=== PATIENT | male | born 1965 | race Hispanic/Latino ===

== ENCOUNTER 2018-05-17 19:39 | Inpatient (IN) | payer BC, MEDICARE ==
--- NOTE | 2018-05-17 20:39 | ED PDOC ---
Arrival/HPI - General Chief Complaint: Alcohol Ingestion Time Seen by Provider: 05/17/18 19:41 Historian: EMS - History of Present Illness Narrative History of Present Illness (Text): 05/17/18 20:38 A 53 year old male with past medical history of schizoaffective disorder and alcohol abuse presents to the emergency department for evaluation for a fall at home. Full history is unobtainable as the patient is incoherent and is alone in the emergency department . Patient is known to the emergency department to have a hx of alcohol dependence, currently is reported to live at home with brother. Patient is awake and alert, follow commands appropriately, he cannot provide any detailed history as his speech is incoherent, patient is noted to be moderately tremulous, no physical evidence of trauma on body. Past Medical History - Provider Review Nursing Documentation Reviewed: Yes - Infectious Disease Hx of Infectious Diseases: None - Cardiac Hx Cardiac Arrhythmia: No Hx Congestive Heart Failure: No Hx Hypertension: Yes Hx Mitral Valve Prolapse: No Hx Pacemaker: No Hx Peripheral Edema: No - Pulmonary Hx Asthma: No Hx Bronchitis: No Hx Chronic Obstructive Pulmonary Disease (COPD): No Hx Emphysema: No Hx Pneumonia: No Hx Sleep Apnea: No - Neurological Hx Alzheimer's Disease: No Hx Dementia: No Hx Migraine: No Hx Parkinson's Disease: No Hx Seizures: No Hx Transient Ischemic Attacks (TIA): No - HEENT Hx HEENT Disorder: No Hx Cataracts: No Hx Deafness: No Hx Difficulty Chewing: No Hx Epistaxis: No Hx Glaucoma: No Hx Macular Degeneration: No - Renal Hx Renal Disorder: No Hx Kidney Stones: No - Endocrine/Metabolic Hx Hyperthyroidism: No Hx Hypothyroidism: No - Hematological/Oncological Hx Anemia: No Hx Sickle Cell Disease: No - Integumentary Hx Dermatological Disorder: No Hx Basal Cell Carcinoma: No Hx Eczema: No Hx Melanoma: No Hx Psoriasis: No Hx Squamous Cell Carcinoma: No - Musculoskeletal/Rheumatological Hx Arthritis: No Hx Fractures: No Hx Osteoporosis: No - Gastrointestinal Hx Crohn's Disease: No Hx Diverticulitis: No Hx Gall Bladder Disease: No Hx Gastrointestinal Ulcer: No Hx Pancreatitis: No - Genitourinary/Gynecological Hx Sexually Transmitted Diseases: No - Psychiatric Hx Anxiety: No Hx Bipolar Disorder: Yes Hx Depression: Yes Hx Post Traumatic Stress Disorder: No Hx Schizophrenia: Yes Hx Substance Use: No - Past Surgical History Past Surgical History: No Previous - Surgical History Hx Appendectomy: No Hx Cholecystectomy: No Hx Coronary Stent: No - Anesthesia Hx Anesthesia: No Hx Anesthesia Reactions: No Hx Malignant Hyperthermia: No - Suicidal Assessment Feels Threatened In Home Enviroment: No Family/Social History - Physician Review Nursing Documentation Reviewed: Yes Family/Social History: No Known Family HX Smoking Status: Unknown If Ever Smoked Hx Alcohol Use: No Hx Substance Use: No Hx Substance Use Treatment: No Allergies/Home Meds Allergies/Adverse Reactions: Allergies No Known Allergies Allergy (Verified 05/08/18 13:47) Review of Systems - Review of Systems Systems not reviewed;Unavailable: Altered Mental Status Physical Exam - Physical Exam Narrative Physical Exam (Text): 05/17/18 20:48 Gen: VS reviewed, alert, well developed, well nourished, nontoxic, mild distr ess Eye: EOMI, PERRL Neck: no JVD, supple, no adenopathy CV: regular rate, regular rhythm, no rubs,no murmur, S1, S2 Pulm: no distress, clear to auscultation, no wheeze, no rhonchi, breath sounds equal, no rales Abd: soft, nontender, no guarding, no rebound, no rigidity Ext: no edema, arms are moderately tremulous when extended away from body but tremor absent when held at sides Skin: good color, no rash, no cyanosis Psych: flat affect Neuro: appears confused, unable to fully assess Medical Decision Making ED Course and Treatment: 05/17/18 20:50 patient seen for incoherence, possible alcohol intoxication vs withdrawal. Will get head CT to rule out ICH as there is a hx of reported fall. Will get cxr to rule out aspiration. 05/18/18 01:27 as per old charts reviewed, patient does no have ability to verbally communicate with very limited verbal. patient appears to be at his baseline mental status. 05/18/18 01:30 the multiple phones numbers on file to call home/brother are not functional and do not offer a direct connection. 05/18/18 06:55 patient remained stable and sleeping during ED stay. vitals remained stable. at time of planned discharge, patient is does not appear to have the ability to function at home, i cannot get the patient to get up and ambulate. overall, the patient would have a poor opportunity to function at his current residence. 05/18/18 07:[address] olivo. patient to be admitted for fall, ? syncopal event. consults to dr. segura, dr. beltran, dr. mcallister - RAD Interpretation Narrative RAD Interpretations (Text): 05/17/18 23:51 cxr my read: no focal infiltrate, no ptx, no wide mediastinum CT SCAN OF THE BRAIN WITHOUT IV CONTRAST IMPRESSION: Normal unenhanced CT scan of the brain. Electronically signed on May 18, 2018 12:49:49 AM EST by: Kavon Gregg M.D., Certified by ABR, MSK, Neuroradiology Radiology Orders: 05/17/18 20:29 CHEST PORTABLE [RAD] Stat 05/17/18 20:30 HEAD W/O CONTRAST [CT] Stat - EKG Interpretation EKG Interpretation (Text): 05/18/18 07:34 0729: sinus annie at 56 bpm, nml qrs, nml axis, nonspecific t wave abn - Medication Orders Current Medication Orders: Discontinued Medications Lorazepam (Ativan) 2 mg IVP ONCE ONE; Protocol Stop: 05/17/18 20:31 Disposition/Present on Arrival - Present on Arrival Any Indicators Present on Arrival: No History of DVT/PE: No History of Uncontrolled Diabetes: No Urinary Catheter: No History of Decub. Ulcer: No History Surgical Site Infection Following: None - Disposition Have Diagnosis and Disposition been Completed?: Yes Diagnosis: Schizoaffective disorder, Weakness Disposition: HOSPITALIZED Disposition Time: 07:11 Patient Plan: Admission Patient Problems: Current Active Problems Problem Status Onset Schizoaffective disorder Acute Weakness Acute Condition: STABLE Discharge Instructions (ExitCare): Weakness (ED) Referrals: PCP,NO [Primary Care Provider] - Follow up with primary Forms: Bilib[employer] (Estonian)
[2018-05-17 21:03] LABS: EOS # 0.1 (0.0-0.7); EOS % 1.8 % (1.5-5.0); GRAN # 1.74 (1.4-6.5); GRAN % 51.3 % (50.0-68.0); HEMOGLOBIN 10.8 g/dL (14.0-18.0); LYMPH # 1.1 (1.2-3.4); LYMPH % 32.4 % (22.0-35.0); MEAN CELL VOLUME 96.5 fl (80.0-105.0); MEAN CORPUSCULAR HEMOGLOBIN 31.5 pg (25.0-35.0); MEAN CORPUSCULAR HGB CONC 32.6 g/dl (31.0-37.0); MEAN PLATELET VOLUME 10.6 fl (7.0-11.0); MONO # 0.5 (0.1-0.6); MONO % 14.5 % (1.0-6.0); RBC 3.43 10^6/uL (3.5-6.1); RED CELL DISTRIBUTION WIDTH 13.4 % (11.5-14.5); WHITE BLOOD COUNT 3.4 10^3/uL (4.5-11.0)
[2018-05-17 21:12] LABS: ALBUMIN 3.4 g/dL (3.0-4.8); ALT/SGPT 33 U/L (7-56); AST/SGOT 51 U/L (17-59); BLOOD UREA NITROGEN 25 mg/dL (7-21); CALCIUM 8.9 mg/dL (8.4-10.5); GFR NON-AFRICAN AMERICAN > 60
[2018-05-17] MEDS ORDERED: Magnesium Sulfate 2 gm/50 ml 2 GM/50 ML BAG IVPB ONE (21:29)
[2018-05-18] MEDS ORDERED: Ergocalciferol 50,000 Intl Units Cap PO SCH (09:15)
--- NOTE | 2018-05-18 09:36 | CT ---
Date of service: 05/18/2018 PROCEDURE: CT HEAD WITHOUT CONTRAST. HISTORY: altered mentation COMPARISON: 11/03/2015. TECHNIQUE: Axial computed tomography images were obtained through the head/brain without intravenous contrast. Supplemental Coronal and Sagittal projections created and reviewed. Radiation dose: Total exam DLP = 919.12 mGy-cm. This CT exam was performed using one or more of the following dose reduction techniques: Automated exposure control, adjustment of the mA and/or kV according to patient size, and/or use of iterative reconstruction technique. FINDINGS: HEMORRHAGE: No intracranial hemorrhage. BRAIN: No mass effect or edema. No atrophy or chronic microvascular ischemic changes. VENTRICLES: Unremarkable. No hydrocephalus. CALVARIUM: Unremarkable. PARANASAL SINUSES: Unremarkable as visualized. No significant inflammatory changes. MASTOID AIR CELLS: Unremarkable as visualized. No inflammatory changes. OTHER FINDINGS: None. IMPRESSION: No acute intracranial abnormalities. No significant findings to account for the clinical presentation. No significant interval change compared to the prior examination(s). Concordant results (preliminary interpretation) provided by [employer]. Procedure Completed: 00:18. Preliminary Report: Dictated and Authenticated: 00:49. Final Interpretation: 09:32.
--- NOTE | 2018-05-18 09:50 | RAD ---
Date of service: 05/17/2018 HISTORY: aspiration COMPARISON: 01/25/2016 FINDINGS: LUNGS: No active pulmonary disease. PLEURA: No significant pleural effusion identified, no pneumothorax apparent. CARDIOVASCULAR: No atherosclerotic calcification present No radiographic findings to suggest acute or significant cardiovascular disease. OSSEOUS STRUCTURES: No significant abnormalities. VISUALIZED UPPER ABDOMEN: Normal. OTHER FINDINGS: None. IMPRESSION: No active disease. No significant interval change compared to the prior examination(s).
[2018-05-18] MEDS: Divalproex 500 mg DR(BID formulation) PO SCH ×2 (10:44→21:37)
[2018-05-18] MEDS: Levothyroxine 125 MCG TAB PO SCH (10:44)
[2018-05-18 14:32] VITALS: BMI 35.9
[2018-05-18] MEDS ORDERED: Pneumococcal 23-Valent Vaccine IM ONE (14:32)
[2018-05-18] MEDS ORDERED: Influenza Vaccine 60 mcg/0.5 mL SYR (4YR UP) IM ONE (14:32)
--- NOTE | 2018-05-18 20:12 | CON ---
DATE: 05/18/2018 LOCATION: The patient is in emergency room, bed 600-01. REASON FOR CONSULTATION: Altered mental status. HISTORY OF PRESENT ILLNESS: This is a 53-year-old male with known case of hypertension; hypothyroidism; high cholesterol; psychiatric problems, bipolar, depression, schizophrenia; admitted from emergency room with altered mental status and also the patient fell at home. This patient does not give proper history. He is and does not answer questions properly. The patient has history of alcohol dependence. There is no history of chest pain, palpitation, or shortness of breath associated with this fall. PAST MEDICAL HISTORY: Positive for schizophrenia, bipolar, depression, hypertension, hypothyroidism, and high cholesterol. PERSONAL HISTORY: The patient has history of alcohol dependence. Smoking history not available. ALLERGIES: NO KNOWN ALLERGIES. HOME MEDICATIONS: Included Cozaar 100 mg daily, levothyroxine 125 mcg daily, Ativan 2 mg at bedtime, Ativan 1 mg b.i.d., Haldol 10 mg p.o. a.m. and at bedtime, Risperdal 4 mg p.o. a.m. and at bedtime, Depakote 1000 mg p.o. a.m. and at bedtime, Cogentin 2 mg b.i.d., Lipitor 20 daily, atenolol 12.5 daily, and aspirin 81 daily. REVIEW OF SYSTEMS: All the systems reviewed, positive as mentioned in the history, otherwise negative. PHYSICAL EXAMINATION VITAL SIGNS: Blood pressure 135/89, respirations 18, pulse 70, and temperature 98.2. HEENT: Head is normocephalic. Eyes, pupils normal. Conjunctivae slightly pale. NECK: JVP low. Carotid equal. THORAX: AP diameter normal. LUNGS: Clear. CARDIOVASCULAR: S1 and S2. ABDOMEN: Soft. No tenderness. No organomegaly. Bowel sounds normal. EXTREMITIES: No clubbing, no cyanosis. NEUROLOGICAL: The patient is awake and alert, but does not answer questions. LABORATORY DATA: WBC 3.4, hemoglobin 10.8, hematocrit 33.1, platelets 93. Sodium 141, potassium 4.1, BUN 25, creatinine 1.0. Magnesium 1.1. Random glucose 106. AST and ALT normal. Total protein and albumin normal. Chest x-ray, no active disease. No significant change compared to previous x-ray. EKG showed regular sinus rhythm, nonspecific ST-T changes. DIAGNOSES: Altered mental status. CAT scan of the head, no acute intracranial abnormality. No change from prior CT scan. IMPRESSION AND PLAN: History of hypertension, hypothyroidism, high cholesterol, bipolar, depression, schizophrenia, altered mental status, and low magnesium. Plan is to give IV mag sulfate and we will give losartan 100 mg daily, aspirin 81 mg daily, atorvastatin 20 daily. The patient already has been ordered 2 g magnesium sulfate IV, levothyroxine 125 mcg daily, atenolol 12.5 mg daily, Ativan 1 mg b.i.d., Ativan 2 mg p.o. at bedtime, Cogentin 2 mg b.i.d., Depakote 1000 mg p.o. a.m. and at bedtime. We will repeat lipid profile and TSH and SMA-7 in the morning. We will do an echocardiogram and we will monitor with you and follow with you. Joe Duarte MD
--- NOTE | 2018-05-18 20:38 | CARD ---
APPROVED REPORT Date of service: 05/18/2018 EKG Measurement Heart [id number] <Conclusion> Sinus bradycardia Otherwise normal ECG
--- NOTE | 2018-05-19 04:02 | HP ---
DATE OF EXAM: 05/18/2018 HISTORY OF PRESENT ILLNESS: The patient is a 53-year-old male, who came into the emergency room because of change in mental status. The patient also had a history of alcohol use. He lives with group, had home group therapy, has brought in because of change in mental status and fall. In the emergency room, the patient was seen and evaluated and does not seem to have any broken bones and does not seem to be in any respiratory distress. The patient does have a history of schizoaffective disorders, his baseline mental status is unclear. The patient is not a historian. He is not responding or talking meaningfully and barely opens his eyes. He moves his legs and arms. Does not seem to be in distress. The patient is unclear when did he drink alcohol, but he did drink in the past. There is no clear history of what had happened. PAST MEDICAL HISTORY: As above; schizoaffective disorder, history of alcohol use, hypertension, hypercholesterolemia, hypothyroidism, seizure disorders, and obesity. He is taking a bunch of medications for psych including Ativan and Depakote, and getting aspirin thyroid problem, hypothyroidism. HOME MEDICATIONS: He takes Risperdal 4 mg p.o. in the morning and at night; Cozaar 100; Synthroid 125 mcg; Ativan 2 mg at bedtime and 1 mg b.i.d.; Haldol, I do not know when; Depakote 1000 b.i.d.; Cogentin 2 mg b.i.d.; Lipitor 20 at dinner; Tenormin 12.5 mg p.o. daily; aspirin 81. ALLERGIES: NO KNOWN ALLERGIES. REVIEW OF SYSTEMS: Unobtainable. PHYSICAL EXAMINATION GENERAL: The patient was seen in the emergency room. He was in no distress, no tremors, but not communicative enough. The patient was seen on 05/18/2018. VITAL SIGNS: Temperature 98.2, heart rate 70, blood pressure 135/89, respirations 18, and saturation 99% on room air. HEAD AND NECK: Normal. No JVD. No thyromegaly. CHEST: Clear bilaterally. CARDIAC: First sound and second sound normal. ABDOMEN: Soft, obese, and nontender. EXTREMITIES: No edema. NEUROLOGIC: The patient moves arms and legs, but does not answer questions properly. He just say words, but it does not make sense. LABORATORY DATA: Laboratory-[facility]gers, his white count 3.4, hemoglobin 10.8, hematocrit 33.1, and platelet count is low 93. Chemistry: Sodium 141, potassium 4.1, chloride 104, bicarb 33, BUN 25, and creatinine 1, magnesium is low 1.1. Liver function test is normal. Toxicology, urine alcohol is low. The patient had a CT of the head which was negative. Electrocardiogram, sinus bradycardia. Chest x-ray, no active disease. IMPRESSION AND PLAN: This is a 53-year-old male came in with possible fall, he does have a history of schizoaffective disorder, alcohol use, hypercholesterolemia, and hypertension. We will admit the patient for observation. The patient if stable, we will get the Cardiology consult and Urology Consult and will follow up clinically. We will repeat his TSH in the morning. We will repeat laboratory in the morning. We will replace his electrolytes. We will follow up with the life scientist and the other neurologist. ADMITTING DIAGNOSES: 1. Acute change in mental status. 2. History of fall. Julien Alvarado MD
[2018-05-19] MEDS: Levothyroxine 125 MCG TAB PO SCH (06:29)
[2018-05-19 07:38] LABS: HEMOGLOBIN 10.9 g/dL (14.0-18.0); MEAN CORPUSCULAR HEMOGLOBIN 31.8 pg (25.0-35.0); MEAN CORPUSCULAR HGB CONC 33.4 g/dl (31.0-37.0); MEAN PLATELET VOLUME 11.2 fl (7.0-11.0); RBC 3.43 10^6/uL (3.5-6.1); RED CELL DISTRIBUTION WIDTH 12.9 % (11.5-14.5); WHITE BLOOD COUNT 3.1 10^3/uL (4.5-11.0)
[2018-05-19 08:14] LABS: LDL CHOLESTEROL 61 mg/dL (0-129)
[2018-05-19 08:19] LABS: BLOOD UREA NITROGEN 15 mg/dL (7-21); GFR NON-AFRICAN AMERICAN > 60; HDL CHOLESTEROL 32 mg/dL (29-60)
--- NOTE | 2018-05-19 09:33 | CP.PCM.PN ---
Subjective - Date & Time of Evaluation Date of Evaluation: 05/19/18 Time of Evaluation: 06:10 - Subjective Subjective: Awake, restless, took off gown Reason for consultation and follow up: Cardiac evaluation, admitted for altered mental status, history of schizoaffective disorder and alcohol abuse Seen nd examined by me and Dr. Duarte Objective - Vital Signs/Intake and Output Vital Signs (last 24 hours): Temp Pulse Resp BP Pulse Ox 97.7 F 59 L 18 150/89 95 05/19/18 05:47 05/19/18 05:47 05/19/18 05:47 05/19/18 05:47 05/19/18 05:47 Intake and Output: 05/19/18 05/19/18 06:59 18:59 Intake Total 240 Output Total 3 Balance 237 - Medications Medications: Current Medications Aspirin (Ecotrin) 81 mg PO DAILY [facility] Last Admin: 05/18/18 10:44 Dose: 81 mg Atenolol (Tenormin) 12.5 mg PO DAILY [facility] Last Admin: 05/18/18 10:43 Dose: 12.5 mg Atorvastatin Calcium (Lipitor) 20 mg PO HS [facility] Last Admin: 05/18/18 21:37 Dose: 20 mg Benztropine Mesylate (Cogentin) 2 mg PO BID [facility] Last Admin: 05/18/18 17:57 Dose: 2 mg Divalproex Sodium (Depakote Dr(*Bid*)) 1,000 mg PO AMHS [facility] Last Admin: 05/18/18 21:37 Dose: 1,000 mg Enoxaparin Sodium (Lovenox) 40 mg SC DAILY [facility]; Protocol Ergocalciferol (Drisdol 50,000 Intl Units Cap) 1 cap PO Q7D [facility] Last Admin: 05/18/18 10:45 Dose: Not Given Levothyroxine Sodium (Synthroid) 125 mcg PO 0700 [facility] Last Admin: 05/19/18 06:29 Dose: 125 mcg Lorazepam (Ativan) 1 mg PO BID [facility]; Protocol Last Admin: 05/18/18 17:57 Dose: 1 mg Lorazepam (Ativan) 2 mg PO HS [facility]; Protocol Last Admin: 05/18/18 21:37 Dose: 2 mg Losartan Potassium (Cozaar) 100 mg PO DAILY [facility] Last Admin: 05/18/18 10:44 Dose: 100 mg Risperidone (Risperdal Tab) 4 mg PO AMHS [facility]; Protocol Last Admin: 05/18/18 21:38 Dose: 4 mg Thiamine HCl (Vitamin B1 Tab) 100 mg PO DAILY [facility] - Labs Labs: 05/19/18 07:00 05/19/18 07:00 - Constitutional Appears: Non-toxic, No Acute Distress - Head Exam Head Exam: NORMAL INSPECTION, NORMOCEPHALIC - Eye Exam Eye Exam: Normal appearance Pupil Exam: NORMAL ACCOMODATION - ENT Exam ENT Exam: Mucous Membranes Moist - Respiratory Exam Respiratory Exam: Clear to Ausculation Bilateral, NORMAL BREATHING PATTERN - Cardiovascular Exam Cardiovascular Exam: REGULAR RHYTHM, +S1, +S2 - GI/Abdominal Exam GI & Abdominal Exam: Soft, Normal Bowel Sounds - Extremities Exam Extremities Exam: Full ROM, Normal Capillary Refill - Neurological Exam Neurological Exam: Alert, Awake - Psychiatric Exam Psychiatric exam: Agitated - Skin Skin Exam: Dry, Normal Color, Warm Assessment and Plan - Assessment and Plan (Free Text) Assessment: A 53 year old male obese, who was brought to the ER due to altered mental status after falling at home. He lives with his brother. History of schizophrenia, depression,bipolar disorder,hypertension,hypercholesterolemia,hypothyroidism, seizure disorder and alcohol abuse. Takes multiple antipsychotic drugs. Poor historian.Cardiac consult for syncope. EKG normal sinus bradycardia, Chest X ray unremarkable. CT of head negative for bleeding. Echo done on 11/03/13 showed LVEF 45%, mildly impaired systolic dysfunction,mild MR/TR RVSP 17 mmHg. Will order echo. Will order orthostatic vital signs. Rule out orthostatic hypotension. Plan: Will order echo to evaluate LV function Denies chest pain, denies shortness of breath Heart rate stable Blood pressure stable Orthostatic vital signs if able to stand On Aspirin 81 mg daily,Tenormin 12.5 mg daily,Lipitor 20 mg daily, Lovenox 40 mg daily, Synthroid 125 mcg daily,Cozaar 100 mg daily Low magnesium and potassium- replenish Continue current treatment Continue current medications Will follow up Plan and treatment discussed with Dr. Duarte
[2018-05-19] MEDS ORDERED: Magnesium Sulfate 2 gm/50 ml 2 GM/50 ML BAG IVPB ONE (09:53)
[2018-05-19] MEDS ORDERED: Potassium Chloride 20 mEq ER Tab PO STA (09:53)
[2018-05-19] MEDS: Divalproex 500 mg DR(BID formulation) PO SCH ×2 (10:50→21:28)
[2018-05-19] MEDS: Enoxaparin 40 mg Syringe SC SCH (10:51)
--- NOTE | 2018-05-19 11:01 | CON ---
DATE: 05/19/2018 PULMONARY CONSULTATION NOTE REFERRING PHYSICIAN: Julien Alvarado MD REASON FOR CONSULTATION: SUNITA. HISTORY OF PRESENT ILLNESS: This is a 53-year-old male who presented to emergency room due to change in mental status and fall. The patient has a history of alcohol use. The patient has poor historian. He is not responding; although, he is awake. He was able to tell me his name, but did not answer any of my other questions. No acute distress noted. PAST MEDICAL HISTORY: Schizoaffective disorder, history of alcohol use, hypertension, hypercholesterolemia, hypothyroidism, seizure disorders and obesity. ALLERGIES: NO KNOWN ALLERGIES. SOCIAL HISTORY: History of alcohol use, unknown if patient is smoker, unknown if patient has used illicit drugs in the past. REVIEW OF SYSTEMS: Unobtainable. MEDICATIONS: Reviewed. Aspirin 81 mg daily, atenolol 12.5 mg daily, Lipitor 20 mg at bedtime, Cogentin 2 mg twice a day, Depakote 1000 mg in the morning and at bedtime, Lovenox 40 mg daily, ergocalciferol 50,000 units every 7 days, Synthroid 125 mcg daily, Ativan 1 mg twice a day. Ativan 2 mg at bedtime, Cozaar 100 mg daily, Risperdal 4 mg in the morning and at bedtime. PHYSICAL EXAMINATION: VITAL SIGNS: Blood pressure 150/89, pulse 59, temperature 97.7 and oxygen 95%. GENERAL: No acute distress. HEENT: Moist mucous membranes. Crowded airway. NECK: Supple. No JVD. Short and thick. RESPIRATORY: Clear bilaterally. CARDIOVASCULAR: S1 and S2, audible. ABDOMEN: Obese, soft and nontender. No distension. No organomegaly. EXTREMITIES: No bilateral lower extremity edema. NEUROLOGIC: The patient is able to tell me his name, not verbally responsive for any other questions. LABORATORY DATA: Reviewed. WBC 3.1, RBC 3.43, hemoglobin 10.9, hematocrit 32.6 and platelets 84. Sodium 141, potassium 3.5, chloride 104, carbon dioxide 33, anion gap 8, BUN 15, creatinine 0.8, GFR is greater than 60, random glucose 82, calcium 9.0, phosphorous 3.9 and magnesium 1.3. Triglycerides 98, cholesterol 111, LDL cholesterol 61, HDL cholesterol 32. PSA 0.7, TSH 0.05, alcohol quantitative less than 10. Chest x-ray no active pulmonary disease. Electrocardiogram sinus bradycardia. Head CT shows no acute intracranial abnormalities. No significant findings to cancel a clinical presentation. IMPRESSION AND PLAN: Acute change in mental status, fall, schizoaffective disorder, history of alcohol use, hypertension, hypercholesteremia, suspect sleep apnea syndrome, sleep apnea precaution. Head of bed elevated at 45 degrees. We will start the patient on bilevel positive airway pressure 12/8, 30% oxygen at bedtime. We will add thiamine to medications. Monitor labs. This patient was seen and examined with Dr. Pickens. Discussed the assessment and plan as described above. Thank you for this consult. We will follow with you. Omari Gardner APN Joe Pickens MD
[2018-05-19] MEDS: Haloperidol Lactate 2 mg/ml Liquid PO SCH ×2 (14:00→17:24)
--- NOTE | 2018-05-19 14:00 | CON ---
DATE: 05/19/2017 HISTORY OF PRESENT ILLNESS: The patient is a 53-year-old white male with a long history of psychiatric illness, specifically treatment-resistant schizophrenia versus schizoaffective disorder, prior Clozaril trial, multiple psychiatric admissions in the past, most recently at this facility from 01/26/2016 to 02/07/2016, however, has been discharged from [facility] for involuntary commitment in the past, who presently lives in the [place] [facility], who was brought in to the ER due to change in mental status, specifically increased confusion and not responding appropriately. I reviewed recent notes, including ER notes and nursing notes as well as prior admissions and met with the patient at bedside. The patient is unable to participate in any functional manner or productive manner in the interview. He has no idea where he is. He does not know current month or year. Cannot respond to simple requests or if he does respond, he falls back asleep or he loses focus. In summary, incoherent and unpredictable according to nursing notes. The patient has required much redirection and has been disruptive after he was admitted to the medical floor for further workup. It is unclear his level of compliance of his psychiatric medications; however, he does have a history of being compliant with his psychiatric medications and suddenly decompensating without any precipitant, which is what occurred during his 2016 admission. At this time, the patient remains unpredictable and should be monitored in inpatient setting for safety of himself and others. PSYCHIATRIC HISTORY: As noted above. The patient has a history of schizoaffective disorder with multiple admissions including [facility] [place] from 01/26/2016 to 02/07/2016. At that time, treated with a regimen similar to the one that he has been given here on the medical floor, including Cogentin 2 mg b.i.d., Depakote 1000 mg in a.m. and at night, Ativan 1 mg b.i.d. and 2 mg at night, Risperdal 4 mg in a.m. and at night; however, the patient was also being treated with Haldol, which does not appear to be on his MAR. The patient when he decompensates, he is loud, , he is bizarre, he is disorganized, unpredictable and cannot care for himself. The patient also has a history of threatening individuals for no reason. The patient has also been treated with Clozaril in the past, but is unclear why this was discontinued and has required treatment with 2 different antipsychotics to sustain stability. The patient has in the past, unclear who his current psychiatric provider is at this time. SOCIAL HISTORY: This provider received collateral information indicating that the patient is living at the [facility] and not actually with his brother, which is indicated on few admissions as during this hospitalization. Residential facility number is [phone]. Donald is the individual that was spoken with last time regarding collaterals. Relevant psychiatric medications as noted include Cogentin 2 mg b.i.d., Depakote 1000 mg in a.m. and at night, Ativan 1 mg b.i.d. and 2 mg at night, Risperdal 4 mg in am and at night. IMPRESSION: Schizoaffective disorder, unclear precipitant, rule out secondary to noncompliance, rule out medical issue including delirium. RECOMMENDATIONS: We will continue his psychiatric medications as described; however, we will also add Haldol as the patient has historically required 2 antipsychotics to achieve stability. Psychiatry will continue to follow up with the patient on the medical floor and provided that he is medically cleared, my strong recommendation is that he is transferred to the psychiatric floor. The patient requires capacity to sign in and it is unclear what his current baseline is. He has not been seen in this facility in over 2 years and it is unclear whether the patient has the capacity to sign for admission at his baseline. Regardless, we will continue to make an attempt to determine whether the patient has a power of banking attorney or legal guardian who could sign for him and have social work involved in this respect, as the patient would definitely benefit from further psychiatric management if he should be medically cleared soon. Tom Hill MD
[2018-05-19] MEDS ORDERED: Enoxaparin 40 mg Syringe SC SCH (14:45)
--- NOTE | 2018-05-19 17:21 | PN ---
DATE: 05/19/2018 LOCATION: The patient is in room 260, bed 1. Detailed progress note has been already written by Debbie Condon. This is additional note. The patient was admitted with altered mental status, history of schizophrenia, depression, bipolar disorder, hypertension, hypercholesteremia, hypothyroidism, seizure disorder, alcohol abuse. The patient is a very poor historian and does not give much history. At times, the patient looks confused. The patient had echo on 11/04/2015 which showed ejection fraction of 45%. Mildly impaired systolic function of LV, mild mitral regurgitation, mild tricuspid regurgitation. PLAN: We will repeat echocardiogram to evaluate left ventricular function. The patient is on aspirin 81 mg daily, Tenormin 12.5 mg daily, Lipitor 20 mg daily, Lovenox 40 mg subcutaneous daily, Synthroid 125 mcg daily, Cozaar 100 mg daily. The patient's magnesium is 1.3, potassium is 3.5. Magnesium sulfate 2 g intravenously piggyback, 140 mg by mouth potassium given and aspirin 81 mg daily, Losartan 100 mg daily, Ativan 2 mg h.s. and 1 mg twice daily, Haldol 2 mg three times daily, atorvastatin 20 mg daily, Lovenox 40 mg subcutaneous daily, Risperdal 4 mg by mouth in the morning and at bedtime, thiamine 100 mg daily. We will repeat SMA-7, magnesium phosphorus in the morning. Joe Duarte MD
--- NOTE | 2018-05-19 20:51 | CON ---
DATE: 05/19/2018 HISTORY OF PRESENT ILLNESS: This is a 53-year-old male with past medical history of hypertension, hypothyroidism, high cholesterol, bipolar, depression, and schizophrenia, came to the hospital. Also, has history of alcohol dependence. He came to the emergency room following a fall at home and altered mental status. PAST MEDICAL HISTORY: Schizophrenia, depression, hypertension, hypothyroidism, and high cholesterol. ALLERGIES: NO KNOWN DRUG ALLERGY. PHYSICAL EXAMINATION" NEUROLOGIC: The patient is confused, not able to follow simple commands and spontaneous movement of all the extremities noted. Deep tendon reflexes 1+. Both plantars are downgoing. Sensory appears intact. Cerebellar gait deferred. IMAGING DATA: CAT scan was done which was reported negative. No acute abnormality. IMPRESSION AND PLAN: Altered mental status, status post fall, multiple medical problems, hypertension, hypothyroidism, depression, and admitted with altered mental status. The patient is on above medications. Continue present management. We will follow up. CAT scan of the head was done which was negative. Klaus Jorgensen MD
[2018-05-19] MEDS: Sodium Chloride 0.45% 1,000 ML IV SCH (21:34)
--- NOTE | 2018-05-19 21:42 | CON ---
DATE OF CONSULTATION: 05/19/2018 REQUESTING PHYSICIAN: Julien Alvarado MD This consult is for Dr. Tovar, Dr. Bailey covering. REASON FOR CONSULTATION: I have been asked to see this 53-year-old male with multiple psychiatric problems including schizoaffective disorder and bipolar disorder, who comes to the hospital with change in mental status consisting of confusion. The patient apparently fell at home. He has a history of alcohol dependence. He is currently awake and alert, but unable to give any history. He is confused. I have been asked to see this patient for anemia. He denies any rectal bleeding, but is unable to give any other history. PAST MEDICAL HISTORY: Notable for schizoaffective disorder, depression, hypertension, hypothyroidism, hypercholesterolemia. FAMILY HISTORY: Noncontributory. SOCIAL HISTORY: The patient has a history of alcohol dependence. He apparently lives in a penitentiary. MEDICATIONS AT HOME: Cozaar, Haldol, Risperdal, Depakote, Cogentin, Lipitor, Levoxyl, Ativan and baby aspirin. REVIEW OF SYSTEMS: A 14-point review of systems is unobtainable due to his confusion. PHYSICAL EXAMINATION: GENERAL: Middle-aged male lying in bed, awake, alert, confused, disoriented to person, place and time. VITAL SIGNS: Temperature of 97.7, blood pressure of 150/89, heart rate of 59. HEENT: Reveals sclerae to be white. Conjunctivae pale. NECK: Supple. CHEST: Reveal lungs to be clear. HEART: Regular rate and rhythm. ABDOMEN: Flabby, soft, nontender. EXTREMITIES: No edema. LABORATORY DATA: Hemoglobin 10.9, white blood cell count 3.1, platelet count 84,000. Chemistries reveal potassium of 3.5 and magnesium of 1.3. IMPRESSION: This is a 53-year-old male with anemia and actually pancytopenia with low white blood cell count and low platelet count. There is no clinical evidence of GI bleeding. He has pancytopenia. He also has altered mental status with a history of multiple psychiatric problems including schizoaffective disorder and depression. RECOMMENDATIONS: 1. We will check iron studies. 2. Check stool guaiacs. 3. Would obtain a hematology evaluation for pancytopenia. Toni Bailey MD [facility] # [id number]
--- NOTE | 2018-05-20 01:00 | PN ---
DATE: 05/19/2018 SUBJECTIVE: Patient seems confused. He is kind of disoriented. He does not communicate well. He does not give any meaningful speech, and he took off his clothes and tried to get out of the bed. for psychiatrist and neurology specialist. Patient resides in a group facility at [place] and has not been using alcohol, and he does have significant history of schizoaffective disorder. PHYSICAL EXAMINATION: VITAL SIGNS: Temperature 97.7, heart rate 99, blood pressure 150/89, respirations 18, and saturation 95% on room air. HEAD AND NECK: Normal. No JVD. No thyromegaly. CHEST: Clear and bilateral. CARDIAC: First sound and second sound normal. No murmur, rub, or gallop. ABDOMEN: Soft and nontender. EXTREMITIES: No edema. NEUROLOGIC: He moves all extremity, but his mental status is disoriented and confused. His baseline mental status unclear. Patient has no relatives around and has been having a history of schizoaffective disorder. LABORATORY STUDIES: White count 3.1, hemoglobin 10.9, hematocrit 32.6, and platelets 84. Sodium 141, potassium 3.12, chloride 104, bicarbonate 33, BUN 15, creatinine 0.8. Patient noted his magnesium is low, and his cholesterol is low. TSH also 0.05. We will re-evaluate that. IMPRESSION AND PLAN: 1. Change in mental status. Patient is admitted with a fall and also has change in mental status, unclear history. However patient does have a history of schizoaffective disorder, on Clozaril and has been on this medication for a while. Psychiatrist and neurologist will see him and we will continue to follow up with him. 2. Low platelets, thrombocytopenia. We will get Hematology. The patient is on Clozaril; he is not getting it now. We will continue to monitor his conditions. 3. Abnormal thyroid stimulating hormone. We will monitor T3 and T4. I will repeat it again and see how the patient do. 4. Hypertension, hypercholesterolemia. We will continue current medication. He is getting Cozaar 100 mg, and he is getting Tenormin 12.5 mg once a day. 6. Obesity. I called the Pulmonary. We will keep the head 45 degree level, positive pressure ventilation 04/12 has been recommended. We will follow up with them. Continue gastrointestinal and deep venous thrombosis prophylaxis. Followup clinically. Maintain aspirin 81 mg daily and thiamine 100 mg p.o. daily. Continue current therapy. Julien Alvarado MD
[2018-05-20 06:56] LABS: BLOOD UREA NITROGEN 14 mg/dL (7-21); CALCIUM 9.1 mg/dL (8.4-10.5); GFR NON-AFRICAN AMERICAN > 60
[2018-05-20 06:57] LABS: IRON 99 ug/dL (45-180)
[2018-05-20] MEDS: Levothyroxine 125 MCG TAB PO SCH (07:01)
[2018-05-20 07:06] LABS: % IRON SATURATION 34 % (20-55); TOTAL IRON BINDING CAPACITY 294 ug/dL (261-462)
[2018-05-20] MEDS: Sodium Chloride 0.45% 1,000 ML IV SCH ×2 (07:58→17:04)
--- NOTE | 2018-05-20 08:42 | CP.PCM.PCO ---
Addendum Addendum: I visited patient at bedside, he is not responsive to multiple attempts to engage him in an interview. He is sleeping deeply. Behavior has been in better control in the past 24 hours however he has been sedated. This provider will hold off on any further psychiatric medication changes due to his sedation (though patient has tolerated current medication regimen in the past at higher doses of haldol @10 mg po TID--He is currently on Haldol 2 mg po TID). Psychiatry will continue to f/u. Next f/u will be 05/21/[address] Sen. Will order VPA level 05/20/18 08:39
[2018-05-20] MEDS: Pantoprazole 40 mg EC Tab PO SCH (09:01)
--- NOTE | 2018-05-20 09:42 | CP.PCM.PN ---
<Toan Murillo - Last Filed: 05/20/18 18:06> Subjective - Date & Time of Evaluation Date of Evaluation: 05/20/18 Time of Evaluation: 09:39 - Subjective Subjective: GI Progress Note for Dr. Tovar Patient seen and examined at bedside. No acute overnight events. Patient somnolent on examination, currently on sedating medications. Further, ROS unobtainable. Objective - Vital Signs/Intake and Output Vital Signs (last 24 hours): Temp Pulse Resp BP Pulse Ox 98 F 88 20 142/81 99 05/20/18 06:00 05/20/18 06:00 05/20/18 06:00 05/20/18 06:00 05/20/18 06:00 Intake and Output: 05/20/18 05/20/18 06:59 18:59 Intake Total 1500 Balance 1500 - Medications Medications: Current Medications Aspirin (Ecotrin) 81 mg PO DAILY [facility] Last Admin: 05/19/18 10:45 Dose: 81 mg Atenolol (Tenormin) 12.5 mg PO DAILY [facility] Last Admin: 05/19/18 10:57 Dose: 12.5 mg Atorvastatin Calcium (Lipitor) 20 mg PO HS [facility] Last Admin: 05/19/18 21:29 Dose: 20 mg Benztropine Mesylate (Cogentin) 2 mg PO BID [facility] Last Admin: 05/19/18 17:25 Dose: 2 mg Divalproex Sodium (Depakote Dr(*Bid*)) 1,000 mg PO AMHS [facility] Last Admin: 05/19/18 21:28 Dose: 1,000 mg Enoxaparin Sodium (Lovenox) 40 mg SC DAILY [facility]; Protocol Last Admin: 05/19/18 10:51 Dose: 40 mg Ergocalciferol (Drisdol 50,000 Intl Units Cap) 1 cap PO Q7D [facility] Last Admin: 05/18/18 10:45 Dose: Not Given Haloperidol Lactate (Haldol) 2 mg PO TID [facility]; Protocol Last Admin: 05/19/18 17:24 Dose: 2 gm Sodium Chloride (Sodium Chloride 0.45%) 1,000 mls @ 100 mls/hr IV .Q10H [facility] Last Admin: 05/20/18 07:58 Dose: 100 mls/hr Levothyroxine Sodium (Synthroid) 125 mcg PO 0700 [facility] Last Admin: 05/20/18 07:01 Dose: Not Given Lorazepam (Ativan) 1 mg PO BID [facility]; Protocol Last Admin: 05/19/18 17:20 Dose: 1 mg Lorazepam (Ativan) 2 mg PO HS [facility]; Protocol Last Admin: 05/19/18 21:29 Dose: 2 mg Losartan Potassium (Cozaar) 100 mg PO DAILY [facility] Last Admin: 05/19/18 10:45 Dose: 100 mg Magnesium Oxide (Mag-Ox) 400 mg PO BID [facility] Pantoprazole Sodium (Protonix Ec Tab) 40 mg PO ACB [facility] Last Admin: 05/20/18 09:01 Dose: Not Given Risperidone (Risperdal Tab) 4 mg PO AMHS [facility]; Protocol Last Admin: 05/19/18 21:30 Dose: 4 mg Thiamine HCl (Vitamin B1 Tab) 100 mg PO DAILY [facility] Last Admin: 05/19/18 10:50 Dose: 100 mg - Labs Labs: 05/19/18 07:00 05/20/18 06:00 - Constitutional Appears: No Acute Distress - Head Exam Head Exam: NORMAL INSPECTION - Eye Exam Eye Exam: Normal appearance - ENT Exam ENT Exam: Mucous Membranes Moist, Normal Exam - Neck Exam Neck Exam: Normal Inspection - Respiratory Exam Respiratory Exam: Clear to Ausculation Bilateral. absent: Rales, Rhonchi, Wheezes - Cardiovascular Exam Cardiovascular Exam: RRR, +S1, +S2. absent: Gallop, Rubs, Murmur - GI/Abdominal Exam GI & Abdominal Exam: Soft. absent: Distended, Guarding, Tenderness, Rebound - Extremities Exam Extremities Exam: Normal Inspection - Back Exam Back Exam: NORMAL INSPECTION - Skin Skin Exam: Normal Color Assessment and Plan - Assessment and Plan (Free Text) Assessment: 53 yo M with PMH of schizoaffective disorder, EtOH abuse, HTN, HLD, hypothyroidism, and seizure presents to [facility] for altered mental status and fall. GI was consulted due to anemia. Patient is pancytopenic, anemia is not likely to be due to GI bleed. Plan: - Iron studies WNL - Retic count normal - B12 level - Peripheral smear - Celiac profile - CT abdomen pelvis - Stool guiaic pending - Hemotology was consulted Patient seen and discussed in detail with Dr. Guy Murillo, DO PGY2 <Mindy Tovar V - Last Filed: 05/20/18 23:59> Objective - Vital Signs/Intake and Output Vital Signs (last 24 hours): Temp Pulse Resp BP Pulse Ox 97.7 F 73 18 161/108 H 99 05/20/18 18:00 05/20/18 18:00 05/20/18 18:00 05/20/18 18:00 05/20/18 06:00 Intake and Output: 05/20/18 05/21/18 18:59 06:59 Intake Total 1200 360 Output Total 400 Balance 1200 -40 - Medications Medications: Current Medications Aspirin (Ecotrin) 81 mg PO DAILY [facility] Last Admin: 05/20/18 11:35 Dose: Not Given Atenolol (Tenormin) 12.5 mg PO DAILY [facility] Last Admin: 05/20/18 15:46 Dose: 12.5 mg Atorvastatin Calcium (Lipitor) 20 mg PO HS [facility] Last Admin: 05/20/18 21:19 Dose: 20 mg Benztropine Mesylate (Cogentin) 2 mg PO BID [facility] Last Admin: 05/20/18 18:09 Dose: 2 mg Divalproex Sodium (Depakote Dr(*Bid*)) 1,000 mg PO AMHS [facility] Last Admin: 05/20/18 21:17 Dose: 1,000 mg Enoxaparin Sodium (Lovenox) 40 mg SC DAILY [facility]; Protocol Last Admin: 05/20/18 11:36 Dose: Not Given Ergocalciferol (Drisdol 50,000 Intl Units Cap) 1 cap PO Q7D [facility] Last Admin: 05/18/18 10:45 Dose: Not Given Haloperidol Lactate (Haldol) 2 mg PO TID [facility]; Protocol Last Admin: 05/20/18 18:09 Dose: Not Given Sodium Chloride (Sodium Chloride 0.45%) 1,000 mls @ 100 mls/hr IV .Q10H [facility] Last Admin: 05/20/18 17:04 Dose: Not Given Levothyroxine Sodium (Synthroid) 125 mcg PO 0700 [facility] Last Admin: 05/20/18 07:01 Dose: Not Given Lorazepam (Ativan) 1 mg PO BID PRN; Protocol PRN Reason: Agitation Losartan Potassium (Cozaar) 100 mg PO DAILY [facility] Last Admin: 05/20/18 15:47 Dose: 100 mg Magnesium Oxide (Mag-Ox) 400 mg PO BID [facility] Last Admin: 05/20/18 18:11 Dose: Not Given Pantoprazole Sodium (Protonix Ec Tab) 40 mg PO ACB [facility] Last Admin: 05/20/18 09:01 Dose: Not Given Risperidone (Risperdal Tab) 4 mg PO AMHS [facility]; Protocol Last Admin: 05/20/18 21:17 Dose: 4 mg Thiamine HCl (Vitamin B1 Tab) 100 mg PO DAILY [facility] Last Admin: 05/20/18 11:37 Dose: Not Given - Labs Labs: 05/20/18 13:04 05/20/18 06:00 Attending/Attestation - Attestation I have personally seen and examined this patient.: Yes I have fully participated in the care of the patient.: Yes I have reviewed all pertinent clinical information, including history, physical exam and plan: Yes Notes (Text): This is an addendum to GI progress report dictated by the GI Fellow. The patient was seen and examined earlier. Medical records, lab studies, imagings were reviewed. Last 24 hours events reviewed. Agreed with the above treatment plan as outlined in GI Fellow 's notes with the addition of the following 05/20/18 23:58
[2018-05-20] MEDS ORDERED: Bisacodyl 5mg EC Tab PO ONE (09:59)
[2018-05-20] MEDS: Divalproex 500 mg DR(BID formulation) PO SCH ×2 (11:15→21:17)
[2018-05-20] MEDS: Enoxaparin 40 mg Syringe SC SCH (11:36)
[2018-05-20] MEDS: Haloperidol Lactate 2 mg/ml Liquid PO SCH ×3 (11:36→18:09)
[2018-05-20] MEDS: Magnesium Oxide 400 mg Tab UD PO SCH ×2 (11:36→18:11)
--- NOTE | 2018-05-20 11:45 | US ---
HISTORY: Leg pain and swelling. Evaluate for DVT PHYSICIAN(S): Puneet Boroks MD. TECHNIQUE: Duplex sonography and color-flow Doppler with graded compression were used to evaluate the deep venous systems of both lower extremities. FINDINGS: The visualized deep venous systems of both lower extremities are sonographically normal and compressible. Normal wave forms and augmentation are seen. There is no sonographic evidence for deep venous thrombosis in the visualized segments of both lower extremities. IMPRESSION: No sonographic evidence for deep venous thrombosis in the visualized segments of both lower extremities.
--- NOTE | 2018-05-20 12:45 | MRI ---
Date of service: 05/20/2018 PROCEDURE: MRI BRAIN WITHOUT CONTRAST HISTORY: AMS COMPARISON: 07/04/2013 MRI TECHNIQUE: Multiplanar, multisequence MR images of the brain were obtained without intravenous contrast enhancement. FINDINGS: HEMORRHAGE: None DWI: No evidence of an acute or early subacute infarction. BRAIN PARENCHYMA: No mass effect or edema. Chronic lacunar infarct in the left thalamus. VENTRICLES: Unremarkable. No hydrocephalus. CRANIUM: Unremarkable. ORBITS: Grossly unremarkable. PARANASAL SINUSES/MASTOIDS: Clear VASCULAR SYSTEM: Skull base flow voids intact. OTHER FINDINGS: None. IMPRESSION: No acute intracranial findings
--- NOTE | 2018-05-20 13:05 | CP.PCM.PCO ---
Physician Communication Note - Physician Communication Note Physician Communication Note: medication adjustment patient is lethargic, PT eval pending
[2018-05-20 13:50] LABS: HEMOGLOBIN 11.5 g/dL (14.0-18.0); MEAN CORPUSCULAR HEMOGLOBIN 31.7 pg (25.0-35.0); MEAN CORPUSCULAR HGB CONC 33.3 g/dl (31.0-37.0); MEAN PLATELET VOLUME 11.4 fl (7.0-11.0); PLATELET COUNT 100 10^3/uL (120.0-450.0); RBC 3.63 10^6/uL (3.5-6.1); RED CELL DISTRIBUTION WIDTH 13.3 % (11.5-14.5)
--- NOTE | 2018-05-20 14:22 | PN ---
DATE: 05/20/2018 REASON FOR THE CONSULTATION AND FOLLOWUP: Cardiac evaluation admitted with altered mental status, rule out syncope. The patient denies any chest pain shortness of breath, any palpitation, OBJECTIVE : not in apparent distress. PHYSICAL EXAMINATION: VITAL SIGNS: Temperature is afebrile, heart rate 72, blood pressure 146/106. HEENT: PERRLA intact. NECK: Supple. No carotid bruit or thyromegaly. CHEST: Clear to auscultation. HEART: S1 and S2 regular. ABDOMEN: Soft. EXTREMITIES: Clubbing, cyanosis negative. LABORATORY DATA: WBC 3.1, hemoglobin 10.9, hematocrit 32.6, platelet count 84. Chemistry shows sodium 141, potassium 3.9, chloride 104, CO2 of 32, anion gap of 10, BUN 40, creatinine 0.7, Magnesium 1.5. IMPRESSION: A 53-year-old male with past medical history hypertension, hypothyroidism, hyperlipidemia, bipolar disorder, depression, schizophrenia, altered mental status, and hypomagnesemia. Admitted with altered mental status, rule out syncope, so far no evidence of acute myocardial infarction. RECOMMENDATION: Aggressive supplemental potassium. Continue anti-seizure medication. We will orthostatic hypotension, for the recommendation. Hospital course will follow with you. Thank you Dr. Medel for providing us the opportunity in taking care of the patient, Yoel Subramanian. Joe Amaral MD MTDKemal
--- NOTE | 2018-05-20 14:35 | PN ---
DATE: 05/20/2018 PULMONARY PROGRESS NOTE REFERRING PHYSICIAN: Julien Alvarado MD SUBJECTIVE: The patient is lying in bed, asleep, arousable, mumbling. Speech is incoherent. Nursing staff reports, the patient does not wear a BiPAP machine last night, he kept pulling it off. No hemoptysis, hematosis, hematuria, diarrhea, or leg swelling reported. OBJECTIVE: GENERAL: No acute distress. VITAL SIGNS: Blood pressure 142/81, pulse 88, temperature 98, oxygen saturation 99% on room air. HEENT: Moist mucous membranes. NECK: Supple. No JVD. RESPIRATORY: Clear bilaterally. CARDIOVASCULAR: S1, S2 audible. ABDOMEN: Soft, nontender. No distension. EXTREMITIES: No bilateral lower extremity edema. NEUROLOGIC: Asleep, arousable. When verbal, the patient mumbles. MEDICATIONS: Reviewed. Aspirin 81 mg daily, atenolol 12.5 mg daily, Lipitor 20 mg at bedtime, Cogentin 2 mg twice a day, Depakote 1000 mg twice a day, Lovenox 40 mg daily, ergocalciferol 50,000 units every 7 days, Haldol 2 mg three times a day, Synthroid 125 mcg daily, Ativan 1 mg twice a day, Ativan 2 mg at bedtime, Cozaar 100 mg daily, magnesium oxide 400 mg twice a day, Protonix 40 mg in the morning, Risperdal 4 mg twice a day, sodium chloride 0.45% 1000 mL/100 mL/hour, vitamin B1 100 mg daily. LABORATORY DATA: Reviewed. Manual platelet count 123. Sodium 141 potassium 3.9, chloride 104, carbon dioxide 32, anion gap 10, BUN 14, creatinine 0.7, GFR greater than 60, random glucose 77, calcium 9.1, phosphorus 3.6, magnesium 1.5, iron 99, TIBC 294, percent saturation 34, valproic acid 75. Venous duplex bilateral lower extremities show negative. Brain MRI, no acute intracranial findings. Echocardiogram, pending report. IMPRESSION AND PLAN: Acute change in mental status, schizoaffective disorder, fall, history of alcohol use, hypertension, hypercholesterolemia, suspected sleep apnea syndrome. Continue to encourage BiPAP use at bedtime. Discussed with nursing staff that BiPAP can be placed during the day if the patient is asleep or lethargic. Head of bed elevated at 45 degrees, sleep apnea precaution. We will order ABGs to be done today. We will discontinue Ativan at bedtime and change Ativan 1 mg twice a day to Ativan 1 mg twice a day as needed. Continue Psychiatry followup. The patient was seen and examined with Dr. Pickens. Discussed assessment and plan as described above. Thank you for this consult. We will follow with you. Omari Gardner APN Joe Pickens MD
--- NOTE | 2018-05-20 14:42 | CARD ---
APPROVED REPORT Date of service: 05/20/2018 EXAM: Two-dimensional and M-mode echocardiogram with Doppler and color Doppler. 2D DIMENSIONS Left Atrium (2D)3.7 (1.6-4.0cm)IVSd1.6 (0.7-1.1cm) LVDd3.5 (3.9-5.9cm)PWd1.1 (0.7-1.1cm) LVDs2.4 (2.5-4.0cm)FS (%) 30.1 % LVEF (%)58.4 (>50%) M-Mode DIMENSIONS Aortic Root2.80 (2.2-3.7cm)Aortic Cusp Exc.2.20 (1.5-2.0cm) Aortic Valve AoV Peak Dnqypywk372.0cm/Neil Peak GR.5mmHg Mitral Valve MV E Uxjslcms47.9cm/sMV A Lhhwtvpt27.3cm/sE/A ratio0.8 TDI E/Lateral E'0.0E/Medial E'0.0 LEFT VENTRICLE The left ventricle is normal size. There is borderline concentric left ventricular hypertrophy. Proximal septal thickening is noted. The left ventricular function is normal.EF-55-60% There is normal LV segmental wall motion. Transmitral Doppler flow pattern is Grade III-reversible restrictive diastolic dysfunction. No left ventricle thrombus noted on this study. There is no ventricular septal defect visualized. There is no left ventricular aneurysm. There is no mass noted in the left ventricle. RIGHT VENTRICLE The right ventricle is normal size. There is normal right ventricular wall thickness. The right ventricular systolic function is normal. ATRIA The left atrium size is normal. The right atrium size is normal. The interatrial septum is intact with no evidence for an atrial septal defect. AORTIC VALVE The aortic valve is thickened but opens well. There is trace aortic regurgitation. There is no aortic valvular stenosis. There is no aortic valvular vegetation. MITRAL VALVE The mitral valve is thickened but opens well. Mitral regurgitation is trace. There is no mitral valve stenosis. There is no evidence of mitral valve prolapse. TRICUSPID VALVE The tricuspid valve leaflets are thickened , but open well. There is trace tricuspid regurgitation. There is no tricuspid valve stenosis. There is no tricuspid valve prolapse or vegetation. PULMONIC VALVE The pulmonary valve is normal in structure. There is trace pulmonic valvular regurgitation. There is no pulmonic valvular stenosis. GREAT VESSELS The aortic root is normal in size. The ascending aorta is normal in size. The pulmonary artery is normal. The IVC is normal in size and collapses >50% with inspiration. PERICARDIAL EFFUSION There is no pleural effusion. There is no pericardial effusion. <Conclusion> Normal chamber Size.EF-55-60%. Trace MR/TR/AR/PI. The IVC is normal in size and collapses >50% with inspiration. There is no pericardial effusion.
--- NOTE | 2018-05-20 14:56 | CT ---
Date of service: 05/20/2018 PROCEDURE: CT Abdomen and Pelvis without intravenous contrast HISTORY: pancytopenia r/o malig COMPARISON: None. TECHNIQUE: Technique. Contrast dose: Radiation dose: Total exam DLP = 1541.02 mGy-cm. This CT exam was performed using one or more of the following dose reduction techniques: Automated exposure control, adjustment of the mA and/or kV according to patient size, and/or use of iterative reconstruction technique. FINDINGS: LOWER THORAX: Unremarkable. LIVER: Unremarkable. No gross lesion or ductal dilatation. GALLBLADDER AND BILE DUCTS: Unremarkable. PANCREAS: Unremarkable. No gross lesion or ductal dilatation. SPLEEN: Unremarkable. ADRENALS: Unremarkable. No mass. KIDNEYS AND URETERS: Unremarkable. No hydronephrosis. No solid mass. VASCULATURE: Unremarkable. No aortic aneurysm. No aortic atherosclerotic calcification or mural plaque present. BOWEL: Moderate to severe constipation APPENDIX: Unremarkable. Normal appendix. PERITONEUM: Unremarkable. No free fluid. No free air. LYMPH NODES: Unremarkable. No enlarged lymph nodes. BLADDER: Unremarkable. REPRODUCTIVE: Unremarkable. BONES: No acute fracture. OTHER FINDINGS: None. IMPRESSION: No acute intra-abdominal findings
[2018-05-20] MEDS ORDERED: Magnesium Sulfate 2 gm/50 ml 2 GM/50 ML BAG IVPB ONE ×2 (15:26→15:47)
[2018-05-20 15:45] LABS: URINE BILIRUBIN NEGATIVE (NEGATIVE); URINE BLOOD TRACE-INTACT (NEGATIVE); URINE GLUCOSE (UA) NEGATIVE (NEGATIVE); URINE LEUKOCYTE ESTERASE NEGATIVE Leu/uL (NEGATIVE); URINE PROTEIN NEGATIVE mg/dL (<30 mg/dL)
[2018-05-20 15:58] LABS: URINE APPEARANCE CLOUDY (CLEAR); URINE COLOR YELLOW (YELLOW)
[2018-05-20 15:59] LABS: URINE BACTERIA FEW /hpf; URINE WBC 0 - 2 /hpf (0-6)
--- NOTE | 2018-05-20 16:08 | CP.PCM.CON ---
History of Present Illness - History of Present Illness History of Present Illness: PGY-2 heme/onc consult note for Dr Loyd Brand Mr Subramanian is a 53 year old male with a PMHx of schizoaffective disorder, alcohol use disorder, HTN, HLD, hypothyroidism, seizure disorder, obesity, who presented to the ED for change in mental status. He was in group therapy at [facility], where he lives, and was noted to acting confused and also had a fall thus he was brought in. Today patient was arousable, mumbling with incoherent speech - collecting a history from him was not possible. BIPAP machine at bedside but per nursing patient is not using at nighttime. PMHx: schizoaffective disorder, alcohol use disorder, HTN, HLD, hypothyroidism, seizure disorder, obesity PSHx: denies Home meds: risperdal 4mg po bid, cozaar 100mg po qd, synthroid 125mcg qd, ativan 2mg po hs, haldol, depakote 1000mg po bid, cogentin 2mg po bid, lipitor 20mg po hs, tenormin 12.5mg po qd, asa 81mg po qd Review of Systems - Review of Systems Systems not reviewed;Unavailable: Uncooperative Past Patient History - Infectious Disease Hx of Infectious Diseases: None - Past Social History Smoking Status: Unknown If Ever Smoked - CARDIAC Hx Cardiac Disorders: Yes Hx Hypertension: Yes Other/Comment: incoherant unable to answer info from past records - PULMONARY Hx Respiratory Disorders: No Other/Comment: incoherant unable to answer info from past records - NEUROLOGICAL Other/Comment: incoherant unable to answer info from past records - HEENT Hx HEENT Problems: No Hx Cataracts: No Hx Deafness: No Hx Difficulty Chewing: No Hx Epistaxis: No Hx Glaucoma: No Hx Macular Degeneration: No Other/Comment: pt incoherant unable to answer info from past records - RENAL Other/Comment: pt incoherant unable to answer info from past records - ENDOCRINE/METABOLIC Hx Hypothyroidism: Yes Other/Comment: pt incoherant unable to answer info from past records - HEMATOLOGICAL/ONCOLOGICAL Hx Blood Disorders: (vitamin d deficiency) Other/Comment: pt incoherant unable to answer info from past records - INTEGUMENTARY Hx Dermatological Problems: Yes Other/Comment: dark brown birthmark lle, left knee abrasion, long thick toenails some dark brown in color both feet - MUSCULOSKELETAL/RHEUMATOLOGICAL Hx Falls: Yes (fell today at home) Other/Comment: pt incoherant unable to answer, info from past records - GASTROINTESTINAL Hx Gastrointestinal Disorders: (obese) Other/Comment: pt incoherant unable to answer info from past records - GENITOURINARY/GYNECOLOGICAL Other/Comment: pt incoherant unable to answer info from past records - PSYCHIATRIC Hx Psychophysiologic Disorder: Yes (schizoaffective disorder) Hx Anxiety: No Hx Bipolar Disorder: Yes Hx Depression: Yes Hx Post Traumatic Stress Disorder: No Hx Schizophrenia: Yes Hx Substance Use: (unknown, answers incoherantly) Other/Comment: alcohol abuse, poor concentration, delusions, flight of ideas, poor hygeine, disorganized thought process, echolalia, 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, past job loss and financial problems, info from psych eval from 02/2016 - SURGICAL HISTORY Other/Comment: pt incoherant unable to answer info from past records - ANESTHESIA Hx Anesthesia: No Hx Anesthesia Reactions: No Hx Malignant Hyperthermia: No Meds Allergies/Adverse Reactions: Allergies Allergy/AdvReac Type Severity Reaction Status Date / Time No Known Allergies Allergy Verified 05/08/18 13:47 - Medications Medications: Current Medications Aspirin (Ecotrin) 81 mg PO DAILY [facility] Last Admin: 05/20/18 11:35 Dose: Not Given Atenolol (Tenormin) 12.5 mg PO DAILY [facility] Last Admin: 05/20/18 15:46 Dose: 12.5 mg Atorvastatin Calcium (Lipitor) 20 mg PO HS [facility] Last Admin: 05/19/18 21:29 Dose: 20 mg Benztropine Mesylate (Cogentin) 2 mg PO BID [facility] Last Admin: 05/20/18 11:14 Dose: Not Given Divalproex Sodium (Depakote Dr(*Bid*)) 1,000 mg PO [facility] Last Admin: 05/20/18 11:15 Dose: Not Given Enoxaparin Sodium (Lovenox) 40 mg SC DAILY [facility]; Protocol Last Admin: 05/20/18 11:36 Dose: Not Given Ergocalciferol (Drisdol 50,000 Intl Units Cap) 1 cap PO Q7D [facility] Last Admin: 05/18/18 10:45 Dose: Not Given Haloperidol Lactate (Haldol) 2 mg PO TID [facility]; Protocol Last Admin: 05/20/18 14:21 Dose: Not Given Sodium Chloride (Sodium Chloride 0.45%) 1,000 mls @ 100 mls/hr IV .Q10H [facility] Last Admin: 05/20/18 07:58 Dose: 100 mls/hr Magnesium Sulfate (Magnesium Sulfate 2 Gm/50 Ml Water) 2 gm in 50 mls @ 25 mls/hr IVPB ONCE ONE Stop: 05/20/18 17:25 Levothyroxine Sodium (Synthroid) 125 mcg PO 0700 [facility] Last Admin: 05/20/18 07:01 Dose: Not Given Lorazepam (Ativan) 1 mg PO BID PRN; Protocol PRN Reason: Agitation Losartan Potassium (Cozaar) 100 mg PO DAILY [facility] Last Admin: 05/20/18 15:47 Dose: 100 mg Magnesium Oxide (Mag-Ox) 400 mg PO BID [facility] Last Admin: 05/20/18 11:36 Dose: Not Given Pantoprazole Sodium (Protonix Ec Tab) 40 mg PO ACB [facility] Last Admin: 05/20/18 09:01 Dose: Not Given Risperidone (Risperdal Tab) 4 mg PO AMHS [facility]; Protocol Last Admin: 05/20/18 11:36 Dose: Not Given Thiamine HCl (Vitamin B1 Tab) 100 mg PO DAILY [facility] Last Admin: 05/20/18 11:37 Dose: Not Given Physical Exam - Additional Findings Additional findings: - Constitutional Appears: No Acute Distress - Head Exam Head Exam: NORMAL INSPECTION - Eye Exam Eye Exam: Normal appearance - ENT Exam ENT Exam: Mucous Membranes Moist, Normal Exam - Neck Exam Neck Exam: Normal Inspection - Respiratory Exam Respiratory Exam: Clear to Ausculation Bilateral. absent: Rales, Rhonchi, Wheezes - Cardiovascular Exam Cardiovascular Exam: RRR, +S1, +S2. absent: Gallop, Rubs, Murmur - GI/Abdominal Exam GI & Abdominal Exam: Soft. absent: Distended, Guarding, Tenderness, Rebound - Extremities Exam Extremities Exam: Normal Inspection - Back Exam Back Exam: NORMAL INSPECTION - Skin Skin Exam: Normal Color Results - Vital Signs Recent Vital Signs: Last Vital Signs Temp 97.3 F L 05/20/18 11:51 Pulse 78 05/20/18 15:46 Resp 18 05/20/18 11:51 BP 158/111 H 05/20/18 15:46 Pulse Ox 99 05/20/18 06:00 - Labs Result Diagrams: 05/20/18 13:04 05/20/18 06:00 Labs: Laboratory Results - last 24 hr 05/20/18 05/20/18 05/20/18 05:00 06:00 06:00 WBC RBC Hgb Hct MCV MCH MCHC RDW Plt Count Manual Plt Count MPV Differential Comment Retic Count Sodium 141 Potassium 3.9 Chloride 104 Carbon Dioxide 32 Anion Gap 10 BUN 14 Creatinine 0.7 L Est GFR ( Amer) > 60 Est GFR (Non-Af Amer) > 60 Random Glucose 77 Calcium 9.1 Phosphorus 3.6 Magnesium 1.5 L Iron 99 TIBC 294 % Saturation 34 Ferritin 327.0 TSH 3rd Generation 0.12 L Urine Color Urine Appearance Urine pH Ur Specific [place] Urine Protein Urine Glucose (UA) Urine Ketones Urine Blood Urine Nitrate Urine Bilirubin Urine Urobilinogen Ur Leukocyte Esterase Urine RBC Urine WBC Ur Epithelial Cells Urine Bacteria Valproic Acid 05/20/18 05/20/18 05/20/18 06:00 09:00 13:04 WBC 3.0 L RBC 3.63 Hgb 11.5 L Hct 34.5 L MCV 95.0 MCH 31.7 MCHC 33.3 RDW 13.3 Plt Count 100 L Manual Plt Count 123 MPV 11.4 H Differential Comment See pathology report Retic Count 1.08 Sodium Potassium Chloride Carbon Dioxide Anion Gap BUN Creatinine Est GFR ( Amer) Est GFR (Non-Af Amer) Random Glucose Calcium Phosphorus Magnesium Iron TIBC % Saturation Ferritin TSH 3rd Generation Urine Color Urine Appearance Urine pH Ur Specific [place] Urine Protein Urine Glucose (UA) Urine Ketones Urine Blood Urine Nitrate Urine Bilirubin Urine Urobilinogen Ur Leukocyte Esterase Urine RBC Urine WBC Ur Epithelial Cells Urine Bacteria Valproic Acid 75 05/20/18 15:30 WBC RBC Hgb Hct MCV MCH MCHC RDW Plt Count Manual Plt Count MPV Differential Comment Retic Count Sodium Potassium Chloride Carbon Dioxide Anion Gap BUN Creatinine Est GFR ( Amer) Est GFR (Non-Af Amer) Random Glucose Calcium Phosphorus Magnesium Iron TIBC % Saturation Ferritin TSH 3rd Generation Urine Color Yellow Urine Appearance Cloudy Urine pH 7.0 Ur Specific [place] 1.020 Urine Protein Negative Urine Glucose (UA) Negative Urine Ketones Negative Urine Blood Trace-intact H Urine Nitrate Negative Urine Bilirubin Negative Urine Urobilinogen 2.0 H Ur Leukocyte Esterase Negative Urine RBC 2 - 5 H Urine WBC 0 - 2 Ur Epithelial Cells None Urine Bacteria Few Valproic Acid Assessment & Plan - Assessment and Plan (Free Text) Plan: Mr Subramanian is a 53 year old male with a PMHx of schizoaffective disorder, alcohol use disorder, HTN, HLD, hypothyroidism, seizure disorder, obesity, who presented to the ED for change in mental status. Hematology has been consulted for Thrombocytopenia. Thrombocytopenia -Platelets on admission: 84 * prior levels from 2016 showed platelets in 150s -Likely 2/2 chronic alcohol use however will need to rule out other etiologies -f/u ldh, haptoglobin, hiv, hep panel, peripheral smear, crp, martha w/ reflex Anemia -Hgb 10.9 on admission -f/u retic count, ferritin level, b12, celiac profile, CT abd/pelvis, stool guiac -GI is on board, Dr Tovar Case discussed with Dr Loyd Brand
--- NOTE | 2018-05-20 16:16 | PN ---
DATE: 05/20/2018 CHIEF COMPLAINT: Followup for confusion. SUBJECTIVE: The patient is seen and examined at bedside. He is lethargic. MRI of the brain showed no acute intracranial abnormalities. He is on multiple antipsychotic drugs which needs to be adjusted by Psychiatry. Also needs to be on BIPAP at night with a suspected sleep apnea syndrome. PAST MEDICAL HISTORY: Schizophrenia disorder, depression, bipolar disorder, hypercholesteremia, hypothyroidism, alcohol abuse. ALLERGIES: NO KNOWN DRUG ALLERGIES. MEDICATIONS: Reviewed by nurse's reconciliation sheet. REVIEW OF SYSTEMS: Fourteen-point review of systems is difficult to obtain due to the patient's lethargic mental status. FAMILY HISTORY: Noncontributory. LABORATORY DATA: Sodium is 141, potassium 3.9, chloride 104, carbon dioxide 32, BUN of 14, creatinine 0.7, random glucose of 77. PHYSICAL EXAMINATION: GENERAL: The patient is lethargic. No acute distress. HEENT: Atraumatic and normocephalic. PERRLA. Extraocular muscles are intact. NECK: Supple. No JVD. No adenopathy noted. LUNGS: Clear to auscultation. No adventitious sounds. HEART: S1 and S2. Normal rate and rhythm. No murmurs, rubs, or gallops. ABDOMEN: Soft, nontender, and nondistended. Bowel sounds present. EXTREMITIES: No clubbing. No cyanosis. Peripheral pulses 2+ felt bilaterally. NEUROLOGIC: The patient is lethargic. Speech is hypophonic, but no aphasia noted. Cranial nerves II through XII are intact. Motor exam: Spontaneous movements upper and lower extremities are noted. Sensory exam: Withdraws to localized noxious stimulus. DTRs are 2+ throughout. Coordination and gait are deferred for now. ASSESSMENT AND PLAN: This is a 53-year-old obese male with a history of schizophrenia, depression, bipolar disorder, hypertension, hypercholesteremia, hypothyroidism, alcohol abuse, taking multiple antipsychotic drugs. The patient is a poor historian, came for altered mental status after falling at home. EKG has some bradycardia and he had initial low systolic blood pressures of 83/51 and then hypertensive urgency episodes. It appears altered mental status is multifactorial likely secondary to hypertensive urgency, obstructive sleep apnea multiple psychiatric medications. RECOMMENDATIONS: At this time, I recommend: 1. Aspirin 81, Lipitor 20 for stroke prevention. 2. Monitor electrolytes and correct accordingly. 3. Keep systolic blood pressure at 130s-140s and diastolic to 70s-80s. 4. Adjust his antihypertensive meds. 5. Psychiatry consults for multiple psychiatric meds which can him sedative medications. 6. Thiamine 300 mg p.o. daily for neuronal activity. 7. Continue with current and present medical management. 8. MRI of the brain is negative. Thank you for this consult. Devon Jorgensen MD
[2018-05-20 16:29] LABS: ARTERIAL BLOOD GAS HCO3 27.9 mmol/L (21-28); ARTERIAL BLOOD GAS HEMOGLOBIN 10.7 g/dL (11.7-17.4); ARTERIAL BLOOD GAS O2 CAPACITY 14.6 mL/dl (16-24); ARTERIAL BLOOD GAS O2 CONTENT 14.1 ML/dl (15-23); ARTERIAL BLOOD GAS O2 SAT 96.8 % (95-98); ARTERIAL BLOOD GAS PCO2 44 mm/Hg (35-45); ARTERIAL BLOOD GAS PH 7.41 (7.35-7.45); ARTERIAL BLOOD GAS TCO2 29.3 mmol.L (22-28)
[2018-05-21] MEDS: Sodium Chloride 0.45% 1,000 ML IV SCH ×2 (06:50→14:19)
[2018-05-21] MEDS: Pantoprazole 40 mg EC Tab PO SCH (06:52)
[2018-05-21] MEDS: Levothyroxine 125 MCG TAB PO SCH (06:52)
--- NOTE | 2018-05-21 07:00 | CP.PCM.PN ---
Subjective - Date & Time of Evaluation Date of Evaluation: 05/21/18 Time of Evaluation: 06:30 - Subjective Subjective: Awake, restless, took off gown Reason for consultation and follow up: Cardiac evaluation, admitted for altered mental status, history of schizoaffective disorder and alcohol abuse Seen nd examined by me and Dr. Duarte Objective - Vital Signs/Intake and Output Vital Signs (last 24 hours): Temp Pulse Resp BP Pulse Ox 98 F 67 20 115/63 95 05/21/18 05:54 05/21/18 05:54 05/21/18 05:54 05/21/18 05:54 05/21/18 05:54 Intake and Output: 05/21/18 05/21/18 06:59 18:59 Intake Total 660 Output Total 800 Balance -140 - Medications Medications: Current Medications Aspirin (Ecotrin) 81 mg PO DAILY [facility] Last Admin: 05/20/18 11:35 Dose: Not Given Atenolol (Tenormin) 12.5 mg PO DAILY [facility] Last Admin: 05/20/18 15:46 Dose: 12.5 mg Atorvastatin Calcium (Lipitor) 20 mg PO HS [facility] Last Admin: 05/20/18 21:19 Dose: 20 mg Benztropine Mesylate (Cogentin) 2 mg PO BID [facility] Last Admin: 05/20/18 18:09 Dose: 2 mg Divalproex Sodium (Depakote Dr(*Bid*)) 1,000 mg PO AMHS [facility] Last Admin: 05/20/18 21:17 Dose: 1,000 mg Enoxaparin Sodium (Lovenox) 40 mg SC DAILY [facility]; Protocol Last Admin: 05/20/18 11:36 Dose: Not Given Ergocalciferol (Drisdol 50,000 Intl Units Cap) 1 cap PO Q7D [facility] Last Admin: 05/18/18 10:45 Dose: Not Given Haloperidol Lactate (Haldol) 2 mg PO TID [facility]; Protocol Last Admin: 05/20/18 18:09 Dose: Not Given Sodium Chloride (Sodium Chloride 0.45%) 1,000 mls @ 100 mls/hr IV .Q10H [facility] Last Admin: 05/21/18 06:50 Dose: 100 mls/hr Levothyroxine Sodium (Synthroid) 125 mcg PO 0700 [facility] Last Admin: 05/21/18 06:52 Dose: 125 mcg Lorazepam (Ativan) 1 mg PO BID PRN; Protocol PRN Reason: Agitation Losartan Potassium (Cozaar) 100 mg PO DAILY [facility] Last Admin: 05/20/18 15:47 Dose: 100 mg Magnesium Oxide (Mag-Ox) 400 mg PO BID [facility] Last Admin: 05/20/18 18:11 Dose: Not Given Pantoprazole Sodium (Protonix Ec Tab) 40 mg PO ACB [facility] Last Admin: 05/21/18 06:52 Dose: 40 mg Risperidone (Risperdal Tab) 4 mg PO AMHS [facility]; Protocol Last Admin: 05/20/18 21:17 Dose: 4 mg Thiamine HCl (Vitamin B1 Tab) 100 mg PO DAILY [facility] Last Admin: 05/20/18 11:37 Dose: Not Given - Labs Labs: 05/20/18 13:04 05/20/18 06:00 - Constitutional Appears: Non-toxic, No Acute Distress - Head Exam Head Exam: NORMAL INSPECTION - ENT Exam ENT Exam: Mucous Membranes Dry - Respiratory Exam Respiratory Exam: Clear to Ausculation Bilateral, NORMAL BREATHING PATTERN - Cardiovascular Exam Cardiovascular Exam: REGULAR RHYTHM, +S1, +S2 - GI/Abdominal Exam GI & Abdominal Exam: Soft, Normal Bowel Sounds - Extremities Exam Extremities Exam: Full ROM, Normal Capillary Refill - Neurological Exam Additional comments: lethargic - Skin Skin Exam: Dry, Normal Color, Warm Assessment and Plan - Assessment and Plan (Free Text) Assessment: A 53 year old male obese, who was brought to the ER due to altered mental status after falling at home. He lives with his brother. History of schizophrenia, depression,bipolar disorder,hypertension,hypercholesterolemia,hypothyroidism, seizure disorder and alcohol abuse. Takes multiple antipsychotic drugs. Poor historian.Cardiac consult for syncope. EKG normal sinus bradycardia, Chest X ray unremarkable. CT of head negative for bleeding. Echo done on 11/03/13 showed LVEF 45%, mildly impaired systolic dysfunction,mild MR/TR RVSP 17 mmHg. Orthostatic vital signs. Rule out orthostatic hypotension. Echo done. LVEF 55- 60%, Trace MR/TR/AR. Psych on consult. On multiple antipsychotic drugs. MRI unremarkable. Plan: No distress, lethargic, calm Heart rate stable Blood pressure stable Orthostatic vital signs when cooperative On Aspirin 81 mg daily,Tenormin 12.5 mg daily,Lipitor 20 mg daily, Lovenox 40 mg daily, Synthroid 125 mcg daily,Cozaar 100 mg daily Psych on consult Continue current treatment Continue current medications Discharge planning Will follow up Plan and treatment discussed with Dr. Amaral
--- NOTE | 2018-05-21 07:39 | CP.PCM.PN ---
<Toan Murillo - Last Filed: 05/21/18 13:51> Subjective - Date & Time of Evaluation Date of Evaluation: 05/21/18 Time of Evaluation: 07:35 - Subjective Subjective: GI Progress Note for Dr. Tovar Patient seen and examined at bedside. No acute overnight events. Patient is awake and alert, but not oriented. Further ROS unobtainable. Objective - Vital Signs/Intake and Output Vital Signs (last 24 hours): Temp Pulse Resp BP Pulse Ox 98 F 67 20 115/63 95 05/21/18 05:54 05/21/18 05:54 05/21/18 05:54 05/21/18 05:54 05/21/18 05:54 Intake and Output: 05/21/18 05/21/18 06:59 18:59 Intake Total 660 Output Total 800 Balance -140 - Medications Medications: Current Medications Aspirin (Ecotrin) 81 mg PO DAILY [facility] Last Admin: 05/20/18 11:35 Dose: Not Given Atenolol (Tenormin) 12.5 mg PO DAILY [facility] Last Admin: 05/20/18 15:46 Dose: 12.5 mg Atorvastatin Calcium (Lipitor) 20 mg PO HS [facility] Last Admin: 05/20/18 21:19 Dose: 20 mg Benztropine Mesylate (Cogentin) 2 mg PO BID [facility] Last Admin: 05/20/18 18:09 Dose: 2 mg Divalproex Sodium (Depakote Dr(*Bid*)) 1,000 mg PO AMHS [facility] Last Admin: 05/20/18 21:17 Dose: 1,000 mg Enoxaparin Sodium (Lovenox) 40 mg SC DAILY [facility]; Protocol Last Admin: 05/20/18 11:36 Dose: Not Given Ergocalciferol (Drisdol 50,000 Intl Units Cap) 1 cap PO Q7D [facility] Last Admin: 05/18/18 10:45 Dose: Not Given Haloperidol Lactate (Haldol) 2 mg PO TID [facility]; Protocol Last Admin: 05/20/18 18:09 Dose: Not Given Sodium Chloride (Sodium Chloride 0.45%) 1,000 mls @ 100 mls/hr IV .Q10H [facility] Last Admin: 05/21/18 06:50 Dose: 100 mls/hr Levothyroxine Sodium (Synthroid) 125 mcg PO 0700 [facility] Last Admin: 05/21/18 06:52 Dose: 125 mcg Lorazepam (Ativan) 1 mg PO BID PRN; Protocol PRN Reason: Agitation Losartan Potassium (Cozaar) 100 mg PO DAILY [facility] Last Admin: 05/20/18 15:47 Dose: 100 mg Magnesium Oxide (Mag-Ox) 400 mg PO BID [facility] Last Admin: 05/20/18 18:11 Dose: Not Given Pantoprazole Sodium (Protonix Ec Tab) 40 mg PO ACB [facility] Last Admin: 05/21/18 06:52 Dose: 40 mg Risperidone (Risperdal Tab) 4 mg PO AMHS [facility]; Protocol Last Admin: 05/20/18 21:17 Dose: 4 mg Thiamine HCl (Vitamin B1 Tab) 100 mg PO DAILY [facility] Last Admin: 05/20/18 11:37 Dose: Not Given - Labs Labs: 05/20/18 13:04 05/20/18 06:00 - Constitutional Appears: No Acute Distress - Head Exam Head Exam: NORMAL INSPECTION - Eye Exam Eye Exam: EOMI, Normal appearance - ENT Exam ENT Exam: Mucous Membranes Moist, Normal Exam - Neck Exam Neck Exam: Normal Inspection - Respiratory Exam Respiratory Exam: Clear to Ausculation Bilateral. absent: Rales, Rhonchi, Wheezes - Cardiovascular Exam Cardiovascular Exam: RRR, +S1, +S2. absent: Clicks, Rubs, Murmur - GI/Abdominal Exam GI & Abdominal Exam: Soft. absent: Distended, Guarding, Tenderness, Rebound - Extremities Exam Extremities Exam: Normal Inspection - Back Exam Back Exam: NORMAL INSPECTION - Neurological Exam Neurological Exam: Alert, Awake, CN II-XII Intact - Psychiatric Exam Psychiatric exam: Normal Mood - Skin Skin Exam: Dry, Warm Assessment and Plan - Assessment and Plan (Free Text) Assessment: 53 yo M with PMH of schizoaffective disorder, EtOH abuse, HTN, HLD, hypothyroidism, and seizure presents to [facility] for altered mental status and fall. GI was consulted due to anemia. Patient is pancytopenic, anemia is not likely to be due to GI bleed. Plan: - Iron studies WNL - Retic count normal - B12 level normal - Peripheral smear unremarkable - Celiac profile pending - CT abdomen pelvis negative - Stool guiaic pending - Hemotology following for pancytopenia Patient seen and discussed in detail with Dr. Guy Murillo DO PGY2 <GuyCosmofredy V - Last Filed: 05/22/18 00:07> Objective - Vital Signs/Intake and Output Vital Signs (last 24 hours): Temp Pulse Resp BP Pulse Ox 98.4 F 79 20 134/96 H 95 05/21/18 17:49 05/21/18 22:28 05/21/18 17:49 05/21/18 17:49 05/21/18 05:54 Intake and Output: 05/21/18 05/22/18 18:59 06:59 Intake Total 480 Balance 480 - Medications Medications: Current Medications Aspirin (Ecotrin) 81 mg PO DAILY [facility] Last Admin: 05/21/18 14:38 Dose: Not Given Atenolol (Tenormin) 12.5 mg PO DAILY [facility] Last Admin: 05/21/18 14:29 Dose: Not Given Atorvastatin Calcium (Lipitor) 20 mg PO HS [facility] Last Admin: 05/21/18 21:51 Dose: 20 mg Benztropine Mesylate (Cogentin) 1 mg PO TID [facility] Last Admin: 05/21/18 18:58 Dose: 1 mg Divalproex Sodium (Depakote Dr(*Bid*)) 1,000 mg PO AMHS [facility] Last Admin: 05/21/18 21:51 Dose: 1,000 mg Enoxaparin Sodium (Lovenox) 40 mg SC DAILY [facility]; Protocol Last Admin: 05/21/18 14:38 Dose: Not Given Ergocalciferol (Drisdol 50,000 Intl Units Cap) 1 cap PO Q7D [facility] Last Admin: 05/18/18 10:45 Dose: Not Given Sodium Chloride (Sodium Chloride 0.45%) 1,000 mls @ 100 mls/hr IV .Q10H [facility] Last Admin: 05/21/18 14:19 Dose: Not Given Levothyroxine Sodium (Synthroid) 100 mcg PO 0700 [facility] Lorazepam (Ativan) 1 mg PO TID [facility]; Protocol Last Admin: 05/21/18 18:58 Dose: 1 mg Losartan Potassium (Cozaar) 100 mg PO DAILY [facility] Last Admin: 05/21/18 14:17 Dose: Not Given Magnesium Oxide (Mag-Ox) 400 mg PO BID [facility] Last Admin: 05/21/18 18:59 Dose: Not Given Pantoprazole Sodium (Protonix Ec Tab) 40 mg PO ACB [facility] Last Admin: 05/21/18 06:52 Dose: 40 mg Polyethylene Glycol (Miralax) 17 gm PO BID [facility] Last Admin: 05/21/18 18:59 Dose: 17 gm Risperidone (Risperdal Tab) 2 mg PO TID [facility]; Protocol Last Admin: 05/21/18 18:59 Dose: 2 mg Thiamine HCl (Vitamin B1 Tab) 100 mg PO DAILY [facility] Last Admin: 05/21/18 14:38 Dose: Not Given Zolpidem Tartrate (Ambien) 5 mg PO HS PRN; Protocol PRN Reason: Insomnia Last Admin: 05/21/18 21:51 Dose: 5 mg - Labs Labs: 05/21/18 06:45 05/20/18 06:00 Attending/Attestation - Attestation I have personally seen and examined this patient.: Yes I have fully participated in the care of the patient.: Yes I have reviewed all pertinent clinical information, including history, physical exam and plan: Yes Notes (Text): This is an addendum to GI progress report dictated by the resident.The patient was seen and examined earlier. Medical records, lab studies, imagings were reviewed. Last 24 hours events reviewed. Agreed with the above treatment plan as outlined in resident's notes with the addition of the following 05/22/18 00:06
[2018-05-21 08:51] LABS: BASO # 0.01 K/mm3 (0.0-2.0); BASO % 0.3 % (0.0-3.0); EOS # 0.1 (0.0-0.7); EOS % 2.8 % (1.5-5.0); GRAN # 1.47 (1.4-6.5); GRAN % 46.4 % (50.0-68.0); HEMOGLOBIN 11.3 g/dL (14.0-18.0); LYMPH # 1.2 (1.2-3.4); LYMPH % 36.9 % (22.0-35.0); MEAN CELL VOLUME 94.9 fl (80.0-105.0); MEAN CORPUSCULAR HEMOGLOBIN 32.3 pg (25.0-35.0); MEAN PLATELET VOLUME 11.1 fl (7.0-11.0); MONO # 0.4 (0.1-0.6); MONO % 13.6 % (1.0-6.0); RBC 3.5 10^6/uL (3.5-6.1); RED CELL DISTRIBUTION WIDTH 13.4 % (11.5-14.5); WHITE BLOOD COUNT 3.2 10^3/uL (4.5-11.0)
[2018-05-21] MEDS ORDERED: Levothyroxine 100 MCG TAB PO SCH (08:54)
--- NOTE | 2018-05-21 09:30 | CP.PCM.PN ---
Subjective - Date & Time of Evaluation Date of Evaluation: 05/21/18 Time of Evaluation: 09:26 - Subjective Subjective: PGY-2 heme/onc progress note for Dr Loyd Brand No acute events noted overnight. Patient was sleeping and was extremely drowsy when I tried to wake him up. He received his anti-seizure and psych meds last night including risperdol and depakote. He would not answer my questions. Per chart review he has been letharic for the past 1 month however at times he is verbal (sometimes with jumbled speech) and has been taking his medications. Objective - Vital Signs/Intake and Output Vital Signs (last 24 hours): Temp Pulse Resp BP Pulse Ox 98 F 67 20 115/63 95 05/21/18 05:54 05/21/18 05:54 05/21/18 05:54 05/21/18 05:54 05/21/18 05:54 Intake and Output: 05/21/18 05/21/18 06:59 18:59 Intake Total 660 Output Total 800 Balance -140 - Medications Medications: Current Medications Aspirin (Ecotrin) 81 mg PO DAILY [facility] Last Admin: 05/20/18 11:35 Dose: Not Given Atenolol (Tenormin) 12.5 mg PO DAILY [facility] Last Admin: 05/20/18 15:46 Dose: 12.5 mg Atorvastatin Calcium (Lipitor) 20 mg PO HS [facility] Last Admin: 05/20/18 21:19 Dose: 20 mg Benztropine Mesylate (Cogentin) 2 mg PO BID [facility] Last Admin: 05/20/18 18:09 Dose: 2 mg Divalproex Sodium (Depakote Dr(*Bid*)) 1,000 mg PO AMHS [facility] Last Admin: 05/20/18 21:17 Dose: 1,000 mg Enoxaparin Sodium (Lovenox) 40 mg SC DAILY [facility]; Protocol Last Admin: 05/20/18 11:36 Dose: Not Given Ergocalciferol (Drisdol 50,000 Intl Units Cap) 1 cap PO Q7D [facility] Last Admin: 05/18/18 10:45 Dose: Not Given Haloperidol Lactate (Haldol) 2 mg PO TID [facility]; Protocol Last Admin: 05/20/18 18:09 Dose: Not Given Sodium Chloride (Sodium Chloride 0.45%) 1,000 mls @ 100 mls/hr IV .Q10H [facility] Last Admin: 05/21/18 06:50 Dose: 100 mls/hr Levothyroxine Sodium (Synthroid) 100 mcg PO 0700 [facility] Lorazepam (Ativan) 1 mg PO BID PRN; Protocol PRN Reason: Agitation Losartan Potassium (Cozaar) 100 mg PO DAILY [facility] Last Admin: 05/20/18 15:47 Dose: 100 mg Magnesium Oxide (Mag-Ox) 400 mg PO BID [facility] Last Admin: 05/20/18 18:11 Dose: Not Given Pantoprazole Sodium (Protonix Ec Tab) 40 mg PO ACB [facility] Last Admin: 05/21/18 06:52 Dose: 40 mg Polyethylene Glycol (Miralax) 17 gm PO BID [facility] Risperidone (Risperdal Tab) 4 mg PO AMHS [facility]; Protocol Last Admin: 05/20/18 21:17 Dose: 4 mg Thiamine HCl (Vitamin B1 Tab) 100 mg PO DAILY [facility] Last Admin: 05/20/18 11:37 Dose: Not Given - Labs Labs: 05/21/18 06:45 05/20/18 06:00 - Additional Findings Additional findings: - Constitutional Appears: No Acute Distress, drowsy, lethargic, obese body habitus - Head Exam Head Exam: NORMAL INSPECTION - Eye Exam Eye Exam: Normal appearance - ENT Exam ENT Exam: Mucous Membranes Moist, Normal Exam - Neck Exam Neck Exam: Normal Inspection - Respiratory Exam Respiratory Exam: Clear to Ausculation Bilateral. absent: Rales, Rhonchi, Wheezes - Cardiovascular Exam Cardiovascular Exam: RRR, +S1, +S2. absent: Gallop, Rubs, Murmur - GI/Abdominal Exam GI & Abdominal Exam: Soft. absent: Distended, Guarding, Tenderness, Rebound - Extremities Exam Extremities Exam: Normal Inspection - Back Exam Back Exam: NORMAL INSPECTION - Skin Skin Exam: Normal Color Assessment and Plan - Assessment and Plan (Free Text) Plan: Mr Subramanian is a 53 year old male with a PMHx of schizoaffective disorder, alcohol use disorder, HTN, HLD, hypothyroidism, seizure disorder, obesity, who presented to the ED for change in mental status. Hematology has been consulted for Thrombocytopenia. Pancytopenia -Platelets on admission: 84, uptrending * prior levels from 2016 showed platelets in 150s -Hgb 10.9 on admission -Likely 2/2 chronic alcohol use however will need to rule out other etiologies; also consider drug-induced -we will trend levels for now and follow-up with blood work -f/u ldh, haptoglobin, hiv, hep panel, peripheral smear, crp, martha w/ reflex * haptoglobin low < 20, hep panel negative -f/u retic count, ferritin level, b12, celiac profile, CT abd/pelvis, stool guiac * b12 692, ldh 527, iron 99, tibc 294, %sat 34, ferritin 327, retic count 1.08 -CT abdomen pelvis negative -GI is on board, Dr Tovar Case discussed with Dr Loyd Brand
[2018-05-21] MEDS: Haloperidol Lactate 2 mg/ml Liquid PO SCH (11:04)
--- NOTE | 2018-05-21 12:32 | PN ---
DATE: 05/21/2018 PULMONARY PROGRESS NOTE REFERRING PHYSICIAN: Julien Alvarado MD SUBJECTIVE: The patient is lying in bed asleep, responding to painful stimuli by but refusing to open his eyes. The patient is not verbal at this time. Per nursing staff, the patient did not use BiPAP machine last night. No hemoptysis, hematemesis, hematuria, diarrhea, or leg swelling reported. OBJECTIVE: GENERAL: No acute distress. VITAL SIGNS: Blood pressure 115/63, pulse 67, temperature 98, and oxygen saturation 95% on room air. HEENT: Moist mucous membranes. NECK: Supple. No JVD. RESPIRATORY: Clear bilaterally. CARDIOVASCULAR: S1 and S2 audible. ABDOMEN: Soft. No distension. No organomegaly. EXTREMITIES: No bilateral lower extremity edema. NEUROLOGIC: Asleep, arousable with painful stimuli, not opening his eyes, and nonverbal. MEDICATIONS: Reviewed. Aspirin 81 mg daily, atenolol 12.5 mg daily, Lipitor 20 mg at dinner, Cogentin 2 mg twice a day, Depakote 1000 mg twice a day, Lovenox 40 mg subcu daily, ergocalciferol 50,000 units every seven days, Haldol 2 mg three times a day, Synthroid 100 mcg daily, Ativan 1 mg twice a day p.r.n., Cozaar 100 mg daily, magnesium oxide 400 mg twice a day, Protonix 40 mg in the morning, MiraLax 17 g twice a day, Risperdal 4 mg twice a day, sodium chloride 0.45% 1000 mL/100 mL/hour, and thiamine 100 mg daily. LABORATORY DATA: Reviewed. WBC 3.2, RBC 3.5, hemoglobin 11.3, hematocrit 33.2, and platelets 101. PCO2 of 44, pO2 of 69, HCO3 of 27.9. ABG; pH 7.41. Ammonia 13, lactate dehydrogenase 527. Urinalysis shows urine blood trace, urine urobilinogen 2, urine RBC 2 to 5, IGA 211. Diagnostic data; echocardiogram shows ejection fraction 55% to 60%, trace MR/TR/AR/PI. Since the IVC is normal in size and greater than 50% with inspiration. There is no pericardial effusion. Brain MRI shows no acute intracranial findings. Abdominal, pelvis CT shows no acute intraabdominal findings with bowel showed moderate to severe constipation. IMPRESSION AND PLAN: Acute change in mental status, schizoaffective disorder, fall history, history of alcohol abuse, hypertension, hypercholesterolemia, and suspected sleep apnea syndrome. After reviewing ABGs, we believe that room air oxygen is okay. Avoid sedatives. the patient may have hypoventilation syndrome. Current medications that patient is on could be affecting respiratory system. Continue to encourage bilevel positive airway pressure use at bedtime, sleep apnea precaution, head of bed elevated at 45 degrees, and Psychiatry followup. The patient was seen and examined with Dr. Pickens. Discussed assessment and plan as described above. Thank you for this consult. We will follow with you. Omari Gardner APN Joe Pickens MD
[2018-05-21 13:21] LABS: HEPATITIS B SURFACE AG Negative (NEGATIVE)
[2018-05-21 13:27] LABS: HEPATITIS A IGM NEGATIVE (NEGATIVE); HEPATITIS B CORE AB NEGATIVE (NEGATIVE)
[2018-05-21 13:39] LABS: HEPATITIS C ANTIBODY NEGATIVE (NEGATIVE)
--- NOTE | 2018-05-21 14:00 | PN ---
DATE: 05/20/2018 SUBJECTIVE: A 53-year-old male who is in telemetry floor. He seems comfortable. No respiratory distress. Does not seems to be in pain, but he is fully responsive. He does open his eyes when I talk to him. He responds by sounds and not understandable and he went back again to sleep, but he responds and he takes his medicine p.o. He is able to swallow, no cough. PHYSICAL EXAMINATION: VITAL SIGNS: Temperature 97.7, heart rate 73, blood pressure 161/108, respirations 18, and saturation 95% on room air. HEAD AND NECK: Normal. No JVD. No thyromegaly. CHEST: Clear and bilateral. CARDIAC: First sound and second sound normal. ABDOMEN: Obese and nontender. EXTREMITIES: No edema. NEUROLOGIC: The patient, he moves all extremities, upper and lower occasionally and go back to sleep. No seizure activity seen. IMPRESSION AND PLAN: 1. Change in mental status, etiology unclear. Patient has history of schizoaffective disorders, on medications, currently he is off medications. Psychiatry has been seeing the patient and Neurology is seeing the patient. The patient also had CT which was negative of the head which is normal for strokes and was still waiting for his mental status to be improving. 2. The patient has hypertension. In the beginning, he could not take his medicine and now he is taking it and the blood pressure is getting better. 3. Morbid obesity, possible obstructive sleep apnea. We will keep the head of the bed at 45 degrees. 4. The patient has hypothyroidism. Continue Synthroid. 5. Continue gastrointestinal and deep venous thrombosis prophylaxis and we will follow up clinically. The patient also had been on Haldol as necessary 2 mg three times daily as needed which would be part of the picture. CURRENT MEDICATIONS: Ativan 1 mg b.i.d. p.r.n., Cogentin 2 mg b.i.d., Cozaar 100 p.o. daily, vitamin D, Depakote 1000 mg p.o. in the morning and at night, aspirin 81, Lipitor 20 mg q.h.s., Lovenox 40 mg subcu daily, mag oxide 400 b.i.d., Miralax p.r.n. 17 g, Protonix 40 once a day, Risperdal 4 mg in the morning and at night, and IV fluid given, Synthroid reduced to 100 mcg, atenolol 12.5, thiamine 100 mg daily. We will continue current medication and continue GI and DVT prophylaxis. Keep the head of the bed at 45 degrees. Julien Alvarado MD
--- NOTE | 2018-05-21 14:25 | CP.PCM.PCO ---
Physician Communication Note - Physician Communication Note Physician Communication Note: PT recommended MATHEW, GI will reeval in am SW/CM D/C planning
[2018-05-21] MEDS: POLYETHYLENE GLYCOL 3350 17 GM/Dose PACKET PO SCH ×2 (14:26→18:59)
[2018-05-21] MEDS: Magnesium Oxide 400 mg Tab UD PO SCH ×3 (14:27→18:59)
[2018-05-21] MEDS: Divalproex 500 mg DR(BID formulation) PO SCH ×3 (14:27→21:51)
[2018-05-21] MEDS: Enoxaparin 40 mg Syringe SC SCH ×2 (14:28→14:38)
--- NOTE | 2018-05-21 15:33 | PN ---
DATE: 05/21/2018 REASON FOR CONSULTATION AND FOLLOWUP: Cardiac evaluation, admitted with altered mental status, history of schizoaffective disorder and alcohol abuse. This note is in addition to dictated by the nurse practitioner, Debbie Condon. SUBJECTIVE: Patient remained stable, not in apparent distress, no chest pain. Orthostatic was requested yesterday, but could not be done because patient was not cooperative. PHYSICAL EXAMINATION: VITAL SIGNS: So far the vitals, temperature afebrile, heart rate 60, blood pressure 105/63. Yesterday, patient had echocardiography done that revealed ejection fraction of 55%-60%, trace MR, mild TR, trace AR, trace PI, essentially normal echoes. Patient had a brain MRI done and no acute intracranial finding on brain MRI. CAT scan of the abdomen and pelvis done yesterday that revealed no acute intraabdominal finding. RECOMMENDATION: Discontinue telemetry, continue Tenormin, continue Lipitor, continue Synthroid, continue DVT prophylaxis, continue Cozaar 100 mg daily. We will discontinue telemetry. Thank you Dr. Alvarado for providing us the opportunity in taking care of the patient, Marilynn Diallo. Joe Amaral MD MTDKemal
[2018-05-21] MEDS ORDERED: Bisacodyl 5mg EC Tab PO ONE (18:53)
--- NOTE | 2018-05-22 00:10 | CON ---
DATE: 05/21/2018 In short, the patient is a 53-year-old male with reported history of schizoaffective disorder. The patient has multiple admissions into the psychiatric inpatient units in the past. The patient currently lives at shelter. The patient was admitted on the medical site in confused stage status post fall. Psych consult was called for evaluation of medications. Dr. Hill attempted to speak to the patient for the past couple of days, but the patient was deeply sedated. This machine sign writer is taking over. This machine sign writer is very familiar with this patient from the previous admission to the psychiatric inpatient unit. The patient was on two antipsychotic medications including Risperdal and haloperidol due to treatment-resistant symptoms. Please see previous notes for more detailed information. This machine sign writer attempted to speak to the patient. The patient presented to be very confused. The patient does not know where he is. The patient was making weird and sexually contact statements, which is not related to the questions being asked. The patient is in a confused stage, but there is some improvement with the patient presentation. Based on documentation from Dr. Hill, the patient was very confused and lethargic. Discussed with the nurse practitioner on the medical site and medications discussed as well. This machine sign writer also obtained collateral information from the patient shelter [facility]. The patient does not have power of assistant city attorney. The patient could make weird statement, but the patient will be not confused. The patient is not at his baseline of functioning. VITAL SIGNS: In regard of vital signs, temperature 97.8, pulse is 96, blood pressure 97/59, respirations 18, oxygen saturation is 95. MEDICATIONS: Reviewed. Depakote was resumed by medical team. This machine sign writer suggested to discontinue haloperidol, but decrease the dose of Risperdal to 2 mg three times a day, before the patient was on 4 mg twice a day. The patient also was on Cogentin 2 mg twice a day, which was decreased to 1 mg three times a day as well as Ativan 1 mg three times a day. Ambien was started as needed for insomnia. LABORATORIES: Reviewed. White blood cells 3.2, granulocytes is 1.47. There are no signs of granulocytosis. Urinalysis reviewed. Toxicology reviewed. Immunology reviewed. Serology reviewed. There are no signs of valproic acid toxicity. Microbiology reviewed. MENTAL STATUS EXAMINATION: The patient had weird statements, which are not related to the questions being asked. The patient was making sexual comments about some landlord and about his daughter. Very hard to interview, the patient was not able to answer questions about his mood, but obviously, the patient is in psychotic stage, confused and disorganized. Insight and judgment seems to be impaired. Impulses are unpredictable. IMPRESSION: As per history, schizoaffective disorder. The patient also has history of alcohol use disorder. At present moment, the patient is in delirium stage. PLAN: Medications reviewed. This machine sign writer suggested to resume Depakote. Cogentin was decreased, Risperdal was decreased. Haloperidol was discontinued. Ativan was started. We will follow up and advise accordingly. Should you have any questions, give me a call back. Thank you very much for letting me participate in the care of your patient. Sofia Sen MD
--- NOTE | 2018-05-22 07:10 | CP.PCM.PN ---
Subjective - Date & Time of Evaluation Date of Evaluation: 05/22/18 Time of Evaluation: 06:35 - Subjective Subjective: Sleeping, no distress, pulled IV last night Reason for consultation and follow up: Cardiac evaluation, admitted for altered mental status, history of schizoaffective disorder and alcohol abuse Seen nd examined by me and Dr. Amaral Objective - Vital Signs/Intake and Output Vital Signs (last 24 hours): Temp Pulse Resp BP Pulse Ox 97.5 F L 64 18 121/80 100 05/22/18 06:00 05/22/18 06:00 05/22/18 06:00 05/22/18 06:00 05/22/18 00:01 - Medications Medications: Current Medications Aspirin (Ecotrin) 81 mg PO DAILY [facility] Last Admin: 05/21/18 14:38 Dose: Not Given Atenolol (Tenormin) 12.5 mg PO DAILY [facility] Last Admin: 05/21/18 14:29 Dose: Not Given Atorvastatin Calcium (Lipitor) 20 mg PO HS [facility] Last Admin: 05/21/18 21:51 Dose: 20 mg Benztropine Mesylate (Cogentin) 1 mg PO TID [facility] Last Admin: 05/21/18 18:58 Dose: 1 mg Divalproex Sodium (Depakote Dr(*Bid*)) 1,000 mg PO AMHS [facility] Last Admin: 05/21/18 21:51 Dose: 1,000 mg Enoxaparin Sodium (Lovenox) 40 mg SC DAILY [facility]; Protocol Last Admin: 05/21/18 14:38 Dose: Not Given Ergocalciferol (Drisdol 50,000 Intl Units Cap) 1 cap PO Q7D [facility] Last Admin: 05/18/18 10:45 Dose: Not Given Sodium Chloride (Sodium Chloride 0.45%) 1,000 mls @ 100 mls/hr IV .Q10H [facility] Last Admin: 05/21/18 14:19 Dose: Not Given Levothyroxine Sodium (Synthroid) 100 mcg PO 0700 [facility] Lorazepam (Ativan) 1 mg PO TID [facility]; Protocol Last Admin: 05/21/18 18:58 Dose: 1 mg Losartan Potassium (Cozaar) 100 mg PO DAILY [facility] Last Admin: 05/21/18 14:17 Dose: Not Given Magnesium Oxide (Mag-Ox) 400 mg PO BID [facility] Last Admin: 05/21/18 18:59 Dose: Not Given Pantoprazole Sodium (Protonix Ec Tab) 40 mg PO ACB [facility] Last Admin: 05/21/18 06:52 Dose: 40 mg Polyethylene Glycol (Miralax) 17 gm PO BID [facility] Last Admin: 05/21/18 18:59 Dose: 17 gm Risperidone (Risperdal Tab) 2 mg PO TID [facility]; Protocol Last Admin: 05/21/18 18:59 Dose: 2 mg Thiamine HCl (Vitamin B1 Tab) 100 mg PO DAILY [facility] Last Admin: 05/21/18 14:38 Dose: Not Given Zolpidem Tartrate (Ambien) 5 mg PO HS PRN; Protocol PRN Reason: Insomnia Last Admin: 05/21/18 21:51 Dose: 5 mg - Labs Labs: 05/21/18 06:45 05/20/18 06:00 - Constitutional Appears: Non-toxic, No Acute Distress - Head Exam Head Exam: NORMAL INSPECTION, NORMOCEPHALIC - ENT Exam ENT Exam: Mucous Membranes Moist - Respiratory Exam Respiratory Exam: Clear to Ausculation Bilateral, NORMAL BREATHING PATTERN - Cardiovascular Exam Cardiovascular Exam: +S1, +S2 - GI/Abdominal Exam GI & Abdominal Exam: Soft, Normal Bowel Sounds - Extremities Exam Extremities Exam: Full ROM, Normal Capillary Refill - Neurological Exam Neurological Exam: Alert, Awake - Skin Skin Exam: Dry, Normal Color, Warm Assessment and Plan - Assessment and Plan (Free Text) Assessment: A 53 year old male obese, who was brought to the ER due to altered mental status after falling at home. He lives with his brother. History of schizophrenia, depression,bipolar disorder,hypertension,hypercholesterolemia,hypothyroidism, seizure disorder and alcohol abuse. Takes multiple antipsychotic drugs. Poor historian.Cardiac consult for syncope. EKG normal sinus bradycardia, Chest X ray unremarkable. CT of head negative for bleeding. Echo done on 11/03/13 showed LVEF 45%, mildly impaired systolic dysfunction,mild MR/TR RVSP 17 mmHg. Orthos tatic vital signs. Rule out orthostatic hypotension. Echo done. LVEF 55-60%, Trace MR/TR/AR. Psych on consult. On multiple antipsychotic drugs. MRI unremarkable. CT of abdomen no acute fundings. Periods of agitation. Plan: No distress, lperiods of agitation, pulled IV last night Heart rate stable Blood pressure stable Cardiac status stable Off telemetry On Aspirin 81 mg daily,Tenormin 12.5 mg daily,Lipitor 20 mg daily, Lovenox 40 mg daily, Synthroid 125 mcg daily,Cozaar 100 mg daily Psych on consult Continue current treatment Continue current medications Discharge planning Will follow up Plan and treatment discussed with Dr. Amaral
[2018-05-22] MEDS: Pantoprazole 40 mg EC Tab PO SCH ×2 (07:20→10:09)
--- NOTE | 2018-05-22 09:18 | PN ---
DATE: 05/22/2018 REASON FOR CONSULTATION AND FOLLOWUP: Cardiac evaluation, admitted with altered mental status, history of schizophrenia disorder and alcohol abuse. This note is in addition to dictated by the nurse practitioner, Debbie Condon. SUBJECTIVE: The patient is lying flat in the bed, not in apparent distress. Telemetry shows normal sinus. The patient had echo as mentioned, ejection fraction of , trace MR, mild TR, trace AR, trace PI, essentially normal echoes. MRI of the brain done and no acute intracranial pathology noted. CT of the abdomen and pelvis also done yesterday revealed no acute intraabdominal finding. This note is in addition to dictated by the nurse practitioner, Debbie Condon. RECOMMENDATIONS: Discontinue telemetry, continue Tenormin, continue Lipitor, continue Synthroid, continue DVT prophylaxis, continue Cozaar, discharge planning. Thank you Dr. Alvarado for provide us opportunity in taking care of the patient, Yoel Subramanian. Joe Amaral MD
[2018-05-22] MEDS: POLYETHYLENE GLYCOL 3350 17 GM/Dose PACKET PO SCH ×3 (10:08→17:58)
[2018-05-22] MEDS: Enoxaparin 40 mg Syringe SC SCH (10:08)
[2018-05-22] MEDS: Magnesium Oxide 400 mg Tab UD PO SCH ×2 (10:08→17:58)
[2018-05-22] MEDS: Divalproex 500 mg DR(BID formulation) PO SCH (10:09)
--- NOTE | 2018-05-22 11:43 | PN ---
DATE: 05/21/2018 SUBJECTIVE: The patient is a 53-year-old male. The patient is stable, alert and awake, but he is disoriented, but he is more awake. He is eating, taking his medicines. He has no agitations and no other complaints. PHYSICAL EXAMINATION: VITAL SIGNS: Temperature 98.4, heart rate 78, blood pressure 134/96, respirations 20, and 100% saturating. HEAD AND NECK: Normal. No JVD. No thyromegaly. CHEST: Clear bilaterally. CARDIAC: First sound and second sound normal. No murmur, rub, or gallop. ABDOMEN: Obese and nontender. EXTREMITIES: No edema. NEUROLOGIC: Normal. LABORATORY STUDIES: Venous Doppler of both lower extremities was normal. His white count 3.2, hemoglobin 11.4, hematocrit 33.2 and platelets 101 improving. His chemistry sodium 141, potassium 3.9, chloride 32, BUN 14, creatinine 0.7, magnesium 1.5, his iron studies is normal and normal, ammonia level is normal, lactate dehydrogenase and C-reactive protein came back normal. The patient also had haptoglobin, which was very low less than 20 and had reticulocyte count which is 1.08. IMPRESSION AND PLAN: 1. Acute change in mental status, baseline mental status, unknown, but the patient improved, he is awake, he is responding better. He is moving all extremity and he is eating, so we will continue observe no psych medications was given, psychiatry will handle that. 2. The patient had thrombocytopenia, leukopenia, anemia and pancytopenia, seems CT abdomen negative, also there is negative workup etiology unclear, could be due to drug induced or alcohol induced, most likely drug induced because he has been using alcohol in the past and nothing happened like this. However, there is no splenomegaly. We will continue followup on that and psychiatry has been seeing him, he is not getting Clozaril now and we will have negative schistocytes and seems going up. We will continue monitor with oncologist and was follow his recommendations. 3. The patient does have morbid obesity, possible obstructive sleep apnea, he should continue head 45 degree may be we will do a sleep study as outpatient. 4. Hypertension, continue Cozaar, blood pressure is better now. 5. Hypothyroidism, continue Synthroid 100 mcg, continue current medications, Ambien 5 mg at night, Ativan 1 mg t.i.d. p.r.n., Cogentin 1 mg t.i.d. Cozaar 100 mg, Depakote 1000 twice a day for bipolar disorder, Vitamin B, aspirin, Lipitor, Lovenox, mag oxide, MiraLax, Protonix, Risperdal 2 mg three times a day, IV fluids, Synthroid 100, Tenormin 12.5 mg p.o. daily and thiamine. Continue current medications. Julien Alvarado MD
--- NOTE | 2018-05-22 12:58 | CP.PCM.PN ---
Subjective - Date & Time of Evaluation Date of Evaluation: 05/22/18 Time of Evaluation: 12:54 - Subjective Subjective: GI Progress Note for Dr. Tovar Patient seen and examined at bedside. No acute overnight events. Patient denies CP, SOB, n/v/d, abdominal pain, fever, chills, RICHARDSON, or dizziness. Objective - Vital Signs/Intake and Output Vital Signs (last 24 hours): Temp Pulse Resp BP Pulse Ox 97.5 F L 76 18 92/49 L 100 05/22/18 06:00 05/22/18 10:03 05/22/18 06:00 05/22/18 10:03 05/22/18 00:01 - Medications Medications: Current Medications Aspirin (Ecotrin) 81 mg PO DAILY [facility] Last Admin: 05/22/18 10:08 Dose: 81 mg Atenolol (Tenormin) 12.5 mg PO DAILY [facility] Last Admin: 05/22/18 10:03 Dose: Not Given Atorvastatin Calcium (Lipitor) 20 mg PO HS [facility] Last Admin: 05/21/18 21:51 Dose: 20 mg Benztropine Mesylate (Cogentin) 1 mg PO TID [facility] Last Admin: 05/22/18 10:08 Dose: 1 mg Divalproex Sodium (Depakote Dr(*Bid*)) 1,000 mg PO AMHS [facility] Last Admin: 05/22/18 10:09 Dose: 1,000 mg Enoxaparin Sodium (Lovenox) 40 mg SC DAILY [facility]; Protocol Last Admin: 05/22/18 10:08 Dose: 40 mg Ergocalciferol (Drisdol 50,000 Intl Units Cap) 1 cap PO Q7D [facility] Last Admin: 05/18/18 10:45 Dose: Not Given Sodium Chloride (Sodium Chloride 0.45%) 1,000 mls @ 100 mls/hr IV .Q10H [facility] Last Admin: 05/21/18 14:19 Dose: Not Given Levothyroxine Sodium (Synthroid) 100 mcg PO 0700 [facility] Last Admin: 05/22/18 07:22 Dose: Not Given Lorazepam (Ativan) 1 mg PO TID [facility]; Protocol Last Admin: 05/22/18 10:08 Dose: 1 mg Losartan Potassium (Cozaar) 100 mg PO DAILY [facility] Last Admin: 05/22/18 10:02 Dose: Not Given Magnesium Oxide (Mag-Ox) 400 mg PO BID [facility] Last Admin: 05/22/18 10:08 Dose: 400 mg Pantoprazole Sodium (Protonix Ec Tab) 40 mg PO ACB [facility] Last Admin: 05/22/18 10:09 Dose: 40 mg Polyethylene Glycol (Miralax) 17 gm PO BID [facility] Last Admin: 05/22/18 10:14 Dose: Not Given Risperidone (Risperdal Tab) 2 mg PO TID [facility]; Protocol Last Admin: 05/22/18 10:19 Dose: 2 mg Thiamine HCl (Vitamin B1 Tab) 100 mg PO DAILY [facility] Last Admin: 05/22/18 10:08 Dose: 100 mg Zolpidem Tartrate (Ambien) 5 mg PO HS PRN; Protocol PRN Reason: Insomnia Last Admin: 05/21/18 21:51 Dose: 5 mg - Labs Labs: 05/21/18 06:45 05/20/18 06:00 - Constitutional Appears: No Acute Distress - Head Exam Head Exam: NORMAL INSPECTION - Eye Exam Eye Exam: EOMI, Normal appearance - ENT Exam ENT Exam: Mucous Membranes Moist, Normal Exam - Respiratory Exam Respiratory Exam: Clear to Ausculation Bilateral. absent: Rales, Rhonchi, Wheezes - Cardiovascular Exam Cardiovascular Exam: RRR. absent: Gallop, Rubs, Murmur - GI/Abdominal Exam GI & Abdominal Exam: Soft. absent: Distended, Guarding, Tenderness, Rebound - Extremities Exam Extremities Exam: Normal Inspection - Back Exam Back Exam: NORMAL INSPECTION - Neurological Exam Neurological Exam: Alert, Awake, Oriented x3 - Skin Skin Exam: Dry, Intact, Normal Color, Warm Assessment and Plan - Assessment and Plan (Free Text) Assessment: 53 yo M with PMH of schizoaffective disorder, EtOH abuse, HTN, HLD, hypothyroidism, and seizure presents to [facility] for altered mental status and fall. GI was consulted due to anemia. Patient is pancytopenic, anemia is not likely to be due to GI bleed. Plan: - Unremarkable workup - Hematology workup recommended - OK to DC from GI standpoint Patient seen and discussed in detail with Dr. Guy Murillo, DO PGY2
--- NOTE | 2018-05-22 13:26 | PN ---
DATE: 05/22/2018 PULMONARY PROGRESS NOTE REFERRING PHYSICIAN: Julien Alvarado MD SUBJECTIVE: The patient is sitting up in arm chair in room. No acute distress. No overnight events reported. The patient is more awake, alert and minimally verbal. No hemoptysis, hematemesis, hematuria and diarrhea reported. OBJECTIVE: GENERAL: No acute distress. VITAL SIGNS: Blood pressure 121/80, pulse 64, temperature 97.5, and oxygen saturation 100% on room air. HEENT: Moist mucous membranes. Crowded airway. NECK: Supple. No JVD. Short and thick. RESPIRATORY: Clear bilaterally. CARDIOVASCULAR: S1 and S2. ABDOMEN: Soft. No distension. No organomegaly. EXTREMITIES: No bilateral lower extremity edema. NEUROLOGIC: Awake, alert and minimally verbal, when verbal patient is incoherent. MEDICATIONS: Aspirin 81 mg daily, atenolol 12.5 mg daily, Lipitor 20 mg at bedtime, Cogentin 1 mg three times a day, Depakote 1000 mg morning and afternoon, Lovenox 40 mg daily, ergocalciferol 50,000 units every seven days, Synthroid 100 mcg daily, Ativan 1 mg three times a day, Cozaar 100 mg daily, magnesium oxide 400 mg twice a day, Protonix 40 mg in the morning, MiraLax 17 g twice a day, Risperdal 2 mg three times a day, sodium chloride 0.45% 1000 mL at a 100 mL/hour, vitamin B1 100 mg daily and Ambien 5 mg p.o. at bedtime p.r.n. LABORATORY DATA: Reviewed. No new labs since yesterday. IMPRESSION AND PLAN: Acute change in mental status, schizoaffective disorder, fall history, history of alcohol abuse, hypertension, hypercholesterolemia, and suspected sleep apnea syndrome. Continue psychiatry followup. The patient had reduction in medication which seems to be improving patient's alertness. Avoid sedatives. Will add Duonen nebulizer for pulmonary toilet. Suspect hypoventilation syndrome. Continue to encourage bilevel positive airway pressure use at bedtime, sleep apnea precaution, head of bed elevated at 45 degrees. The patient was seen and examined with Dr. Pickens. Discussed assessment and plan as described above. Thank you for this consult. We will follow with you. Omari Gardner APN Joe Pickens MD [facility] # [id number] [facility]
[2018-05-22 13:53] VITALS: RESP 20; TEMP 98.1
--- NOTE | 2018-05-22 14:07 | CP.PCM.PCO ---
Physician Communication Note - Physician Communication Note Physician Communication Note: PT recommending MATHEW CM/SW for D/C planning
[2018-05-22 17:05] VITALS: O2SAT 97
[2018-05-22 18:40] VITALS: BP 111/64; PULSE 66
[2018-05-22] MEDS ORDERED: Albuterol-Ipratrop 3 mg / 0.5 (3 ml) UD IH SCH (20:00)
--- NOTE | 2018-05-22 23:25 | DS ---
HISTORY OF PRESENT ILLNESS: A 53-year-old male admitted with change in mental status. The patient improved overtime. While he was in the hospital, he started to waken up, started to responding, started talking. Today, he is alert, awake. He is oriented to me, but he does not know the place. He does have a problem of schizoaffective disorders, on psych meds, but he thinks he works in , but there is no active violence. He is not agitated, he is calm, he is eating, sleeping, did walk with the physical therapy today and otherwise stable. The patient seen by neurologist. He is evaluated by the neurologist. He is seen also by noteman, Dr. Amaral. He is seen by nuclear power reactor operator, Dr. Pickens. The patient is morbid obese. He may need to be evaluated for other stuff. He had a CT abdomen and pelvis, which was negative and he had a CAT scan of the head, which was negative. He had a brain MRI as per Neurology and the brain MRI showed no acute findings and the patient seems stable clinically improved and seems hemodynamically stable. He does take his medicines. He seems doing good and will be discharged for rehabilitation today. PHYSICAL EXAMINATION: VITAL SIGNS: Temperature 98.1, heart rate 76, blood pressure 106/75, respirations 20, and saturation 97% on room air. HEENT: Head and neck normal. No JVD. No thyromegaly. CHEST: Clear bilateral. CARDIAC: First sound, second sound normal. No murmur, rub, or gallop. ABDOMEN: Soft and nontender. EXTREMITIES: No edema. NEUROLOGIC: Normal. LABORATORY DATA: White count 3.2, hemoglobin 11.3, hematocrit 33.2, platelets 101, it got better. Chemistry: Sodium 141, potassium 3.9, chloride 104, bicarb 32, BUN 14, creatinine 0.7, his magnesium 1.5. His iron study came back negative. His ferritin is normal. His ammonia level came back normal and the patient also has workup including serology, hepatitis, and HIV came back negative, also had BORIS screen, which was negative and there was test as a tissue transglutaminase, IgA was still pending, celiac disease interpretation still pending, endomysial IgA titer is still pending. Urinalysis was negative. There is 2 to 5 red blood cells and he also has been seen by script girl. ASSESSMENT: The patient otherwise stable on current medications. He has no chest pian, he is not short of breath, he is not complaining of any dizziness, and he will be discharged for rehabilitations. DISCHARGE MEDICATIONS: Ambien 5 mg, Ativan 1 mg, Cogentin 1 mg t.i.d., Cozaar 25 b.i.d., vitamin D once a day, DuoNeb, aspirin 81, Lipitor 20, magnesium oxide 400 b.i.d., Maalox, Protonix 40 once a day, Risperdal 2 mg b.i.d., Synthroid 100 mcg, and Tenormin 12.5 mg p.o. daily,, vitamin B, thiamine once a day. DIAGNOSES: 1. Acute change in mental status, probably medication-related. 2. Thrombocytopenia or pancytopenia secondary to probably medications, is improving, workup negative. 3. Hypertension. 4. Morbid obesity, need sleep apnea precautions. 5. Schizoaffective disorders, on psych meds. 6. Hypothyroidism. PLAN: To follow up as outpatient. The patient advised to follow up within a week or two weeks after discharge for further evaluations. While he is in the hospital, he did have a CT abdomen and pelvis and it was negative, vasculature was negative. He does have some constipation, kidney unremarkable, no hydronephrosis, no solid mass, spleen unremarkable, pancreas unremarkable, gallbladder unremarkable, and liver is unremarkable. Pelvis negative. Also, the patient had an echocardiogram by the Cardiology and it shows normal diameter, ejection fraction 55% to 60% and normal chamber size and good LV function. There is diastolic dysfunction, reversible, restrictive diastolic dysfunction, otherwise normal. Also, the patient had venous Doppler of lower extremities which was negative. Also, the patient had schistocyte test which was negative and no atypical cells or immature forms identified. Julien Alvarado MD
--- NOTE | 2018-05-23 08:08 | PN ---
DATE: 05/22/2018 SUBJECTIVE: The patient is a 53-year-old male with reported history of schizoaffective disorder. The patient was admitted to the medical site, status post fall. The patient has long history of mental illness treatment suggesting psychosis. This medical underwriter attempted to speak to the patient yesterday, but the patient was mumbling something noncoherently and majority of the answers were not related to the questions being asked. Collateral information obtained from Bree Biswas. The patient at baseline is confused and psychiatric. The patient noncompliant with the medications. The main concern was the patient fell. The patient was seen today for followup. The patient presented to be sleepy. The patient presented to be disorganized with naked eyes but not able to participate in interview. So far, there is no aggression. No agitation. We will adjust her medication. Prior to coming to the hospital, the patient was also on psychotic medication although was also on hold and Risperdal at present moment will be decreased to 2 mg twice a day and ordered to avoid any unnecessary sedation. As per Physical Therapy recommendation, the patient was recommended to go to Subacute Rehab. The chart included that plan. 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 PHYSICAL EXAMINATION: VITAL SIGNS: Seem to be stable. Temperature 98.1, pulse 107, blood pressure 106/75, respirations 20, oxygen saturation is 100. MEDICATIONS: Reviewed. In regards with psychotropic medication, the patient was on Depakote 1000 mg twice a day. Also, the patient will be on Risperdal 2 mg twice a day as well as Ambien as needed and Cogentin for EPS was reviewed Most recent was from today. Chemistry reviewed. Toxicology reviewed. MENTAL STATUS EXAMINATION: As this medical underwriter described above, the patient is confused, falling asleep, waking up. The patient was not able to participate in interview in any meaningful way. IMPRESSION: History of schizoaffective disorder. The patient most likely is in delirium stage. The patient has multiple medical issues including falls. PLAN: This medical underwriter adjusted medication. The patient was recommended to go to subacute rehab, agree with that. We will follow up and advise accordingly. Thank you very much for letting me participate in the care of your patient. Should you have any questions, give me a call back. Sofia Sen MD MTDKemal
--- NOTE | 2018-05-23 13:21 | CP.PCM.PCO ---
Physician Communication Note - Physician Communication Note Physician Communication Note: pt was d/c, pt needs to be seen by psych within 48hrs after d/c
--- NOTE | 2018-05-23 13:39 | DS ---
HISTORY OF PRESENT ILLNESS: The patient in bed with complaint of flank pain and he was again frustrated and I did ask him that he need to follow up for his left flank pain, which could be due to his spine. He does have a history of the spine problem, actually has spinal stenosis, disc disease in the lumbosacral area and also in the cervical area. Etiology of pain intermittently he has it for two years. His workup including CT of his abdomen with IV contrast was negative. is still low or may consider replacing it. . Patient was showed about the results and the workup Nephrology consult for high blood pressure and Cardiology consult Dr. Amaral. PHYSICAL EXAMINATION: VITAL SIGNS: Heart rate 67, blood pressure was saturation 98%. HEAD AND NECK: Normal. No JVD. No thyromegaly. CHEST: Clear bilaterally. CARDIAC: First sound and second sound normal. No murmur, rub, or gallop. ABDOMEN: Soft and nontender. EXTREMITIES: No edema. NEUROLOGIC: . DISCHARGE DIAGNOSES: 1. Due to the back pain, etiology possibly neurogenic and radiculopathy. Patient was given physical therapy, pain management therapy, and was given Percocet 5/325 every six hours as needed for pain. 2. Patient has anxiety and seems very anxious, he may need to see a psychiatrist as outpatient. He may need to follow up with them. to the patient, he needs more attention to his under psych conditions and chronic anxiety. 3. Coronary artery disease. 4. Hypothyroidism, we may need to repeat TSH and may be needed to given small dose of levothyroxine and followed up as outpatient. 5. The patient has hypercholesterolemia, it needs to be adjusted with his medications and also patient advised to continue physical therapy, see Neurology, see Pain Management and may be we will consider repeating his MRI of his back. At this time, patient seems stable. He started being quite and calm down. He seems okay, walking nicely. I did walk with him in the corridor of the hospital in a separate room where he discussed his conditions and he seems a little bit discussing different matters than his pain, but I did assure him about the pain and I did explain need to be followed up in the office within a week. Continue current therapy for now. All prescriptions sent to [facility] and copy of the prescription is in the chart. Julien Alvarado MD
== END 2018-05-22 20:35 | DRG 947 ==
LOC: ED 19:39 → ERH 05-18 07:25 → 2RNO 05-18 15:51
PROVIDERS: ADMIT Internal Medicine; ATTEND Internal Medicine
DX: R41.82 Altered mental status, unspecified (principal); D61.811 Other drug-induced pancytopenia; D69.59 Other secondary thrombocytopenia; T50.905A Adverse effect of unspecified drugs, medicaments and biological substances, initial encounter; F25.9 Schizoaffective disorder, unspecified; F31.9 Bipolar disorder, unspecified; F10.20 Alcohol dependence, uncomplicated; I10 Essential (primary) hypertension; G40.909 Epilepsy, unspecified, not intractable, without status epilepticus; E03.9 Hypothyroidism, unspecified; Z68.33 Body mass index [BMI] 33.0-33.9, adult; W19.XXXA Unspecified fall, initial encounter; E66.9 Obesity, unspecified; I16.0 Hypertensive urgency; R00.1 Bradycardia, unspecified; G47.33 Obstructive sleep apnea (adult) (pediatric); E66.01 Morbid (severe) obesity due to excess calories; E78.00 Pure hypercholesterolemia, unspecified; E78.5 Hyperlipidemia, unspecified; Y92.009 Unspecified place in unspecified non-institutional (private) residence as the place of occurrence of the external cause; Z79.82 Long term (current) use of aspirin; Z79.890 Hormone replacement therapy; Z79.899 Other long term (current) drug therapy; Z91.14 Patient's other noncompliance with medication regimen; Z91.19 Patient's noncompliance with other medical treatment and regimen

== ENCOUNTER 2018-07-12 16:24 | Inpatient (IN) | payer MEDICARE ==
[2018-07-12 17:01] VITALS: BMI 33.0
--- NOTE | 2018-07-12 17:33 | RAD ---
Date of service: 07/12/2018 HISTORY: ams COMPARISON: 05/17/2018. FINDINGS: LUNGS: The lungs are well inflated and clear. PLEURA: No pleural effusions or pneumothorax. CARDIOVASCULAR: The heart is normal in size. No aortic atherosclerotic calcifications present. OSSEOUS STRUCTURES: Within normal limits for the patient's age. VISUALIZED UPPER ABDOMEN: Normal. OTHER FINDINGS: None. IMPRESSION: No active pulmonary disease.
[2018-07-12 18:31] LABS: BASO # 0.01 K/mm3 (0.0-2.0); BASO % 0.3 % (0.0-3.0); EOS % 0.9 % (1.5-5.0); HEMOGLOBIN 12.4 g/dL (14.0-18.0); LYMPH # 1.2 (1.2-3.4); LYMPH % 34.2 % (22.0-35.0); MEAN CELL VOLUME 96.1 fl (80.0-105.0); MEAN CORPUSCULAR HEMOGLOBIN 32.5 pg (25.0-35.0); MEAN CORPUSCULAR HGB CONC 33.8 g/dl (31.0-37.0); MEAN PLATELET VOLUME 9.6 fl (7.0-11.0); MONO # 0.2 (0.1-0.6); MONO % 6.6 % (1.0-6.0); RBC 3.82 10^6/uL (3.5-6.1); RED CELL DISTRIBUTION WIDTH 12.6 % (11.5-14.5); WHITE BLOOD COUNT 3.5 10^3/uL (4.5-11.0)
[2018-07-12 18:37] LABS: ALB/GLOB RATIO 1.2 (1.1-1.8); ALBUMIN 4.3 g/dL (3.0-4.8); BLOOD UREA NITROGEN 12 mg/dL (7-21); GFR NON-AFRICAN AMERICAN > 60
--- NOTE | 2018-07-12 18:45 | ED PDOC ---
Arrival/HPI - General Chief Complaint: Altered Mental Status Time Seen by Provider: 07/12/18 16:36 Historian: EMS - History of Present Illness Narrative History of Present Illness (Text): 07/12/18 19:10 53 year old M with a PMH of schizoaffective disorder and alcohol abuse presents to the emergency department via EMS complaining of AMS. Via EMS, patient was taken from his [facility] due to an AMS and have resisted in taking his medications. Patient denies any fevers, chills, headache, dizziness, chest pain, shortness of breath, dyspnea on exertion, cough, abdominal pain, nausea, vomiting, diarrhea, back pain, neck pain, or any other complaint. Time/Duration: Prior to Arrival Symptom Onset: Gradual Symptom Course: Unchanged Activities at Onset: Light Context: Other (Detention) Past Medical History - Provider Review Nursing Documentation Reviewed: Yes - Travel History Have you recently traveled outside [place] w/in the past 3 mons?: No - Infectious Disease Hx of Infectious Diseases: None - Cardiac Hx Hypertension: Yes - Pulmonary Hx Respiratory Disorders: No Other/Comment: incoherant unable to answer info from past records - Neurological Other/Comment: incoherant unable to answer info from past records - HEENT Hx HEENT Disorder: No Hx Cataracts: No Hx Deafness: No Hx Difficulty Chewing: No Hx Epistaxis: No Hx Glaucoma: No Hx Macular Degeneration: No Other/Comment: pt incoherant unable to answer info from past records - Renal Other/Comment: pt incoherant unable to answer info from past records - Endocrine/Metabolic Hx Hypothyroidism: Yes - Hematological/Oncological Hx Blood Disorders: (vitamin d deficiency) Other/Comment: pt incoherant unable to answer info from past records - Integumentary Hx Dermatological Disorder: Yes Other/Comment: dark brown birthmark lle - Musculoskeletal/Rheumatological Hx Falls: Yes Other/Comment: pt incoherant unable to answer, info from past records - Gastrointestinal Hx Gastrointestinal Disorders: (obese) Other/Comment: pt incoherant unable to answer info from past records - Genitourinary/Gynecological Other/Comment: pt incoherant unable to answer info from past records - Psychiatric Hx Psychophysiologic Disorder: Yes (schizoaffective disorder) Hx Anxiety: No Hx Bipolar Disorder: Yes Hx Depression: Yes Hx Post Traumatic Stress Disorder: No Hx Schizophrenia: Yes Hx Substance Use: (unknown, answers incoherantly) Other/Comment: alcohol abuse, poor concentration, delusions, flight of ideas, poor hygeine, disorganized thought process, echolalia, 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, past job loss and financial problems, info from psych eval from 02/2016 - Past Surgical History Past Surgical History: No Previous - Surgical History Other/Comment: pt incoherant unable to answer info from past records - Anesthesia Hx Anesthesia: No Hx Anesthesia Reactions: No Hx Malignant Hyperthermia: No - Suicidal Assessment Feels Threatened In Home Enviroment: No Family/Social History - Physician Review Nursing Documentation Reviewed: Yes Family/Social History: No Known Family HX Smoking Status: Unknown If Ever Smoked Hx Alcohol Use: Yes (unknown what and how much) Hx Substance Use: (unknown, answers incoherantly) Hx Substance Use Treatment: No Allergies/Home Meds Allergies/Adverse Reactions: Allergies No Known Allergies Allergy (Verified 07/13/18 14:19) Review of Systems - Physician Review All systems were reviewed & negative as marked: Yes - Review of Systems Constitutional: absent: Fevers Respiratory: absent: SOB, Cough Cardiovascular: absent: Chest Pain Gastrointestinal: absent: Abdominal Pain, Diarrhea, Nausea, Vomiting Musculoskeletal: absent: Back Pain, Neck Pain Neurological: absent: Headache Physical Exam Vital Signs Reviewed: Yes Vital Signs Temp Pulse Resp BP Pulse Ox 07/12/18 17:00 97.9 F 78 18 167/92 H 100 Temperature: Afebrile Pulse: Regular Respiratory Rate: Normal Appearance: Positive for: Comfortable Mental Status: Positive for: other (A&0x1) Finger Stick Blood Glucose: 113 - Systems Exam Head: Present: Atraumatic, Normocephalic Neck: Present: Normal Range of Motion Respiratory/Chest: Present: Clear to Auscultation, Good Air Exchange Cardiovascular: Present: Regular Rate and Rhythm Abdomen: No: Tenderness, Distention Neurological: Present: GCS=15 Psychiatric: Present: Alert, Other (A&0x1) Medical Decision Making ED Course and Treatment: 07/12/18 19:21 Impression: 53 year old M presents to the emergency department via EMS complaining of AMS. Differential Diagnosis included but are not limited to: Sepsis EtOH Withdrawal Medication Withdrawal Psychosis Plan: --Head CT --EKG --Labs --UA --RisperDAL tab --Chest X- RAY --PES fish packer -- Reassess and disposition Prior Visits: Notes and results from previous visits were reviewed. Progress Notes: 07/12/18 19:57 Labs reviewed and unremarkable. Patient is medically cleared. PES fish packer called and will come see patient. 07/12/18 21:[address] Kendrick who will resume the patient's care. - Lab Interpretations Lab Results: Total Bilirubin 0.6 mg/dL (0.2-1.3) 07/12/18 18:24 Total Protein 7.9 g/dL (5.8-8.3) 07/12/18 18:24 Albumin 4.3 g/dL (3.0-4.8) 07/12/18 18:24 Globulin 3.6 gm/dL 07/12/18 18:24 Albumin/Globulin Ratio 1.2 (1.1-1.8) 07/12/18 18:24 07/12/18 18:24 07/12/18 18:24 Lab Results 07/12/18 18:24: Free T4 1.11, TSH 3rd Generation 7.63 H, Alcohol, Quantitative < 10 07/12/18 18:24: Salicylates < 1 L, Acetaminophen < 10.0 L 07/12/18 18:24: Sodium 128 L, Potassium 4.3, Chloride 96 L, Carbon Dioxide 31, Anion Gap 7 L, BUN 12, Creatinine 0.7 L, Est GFR ( Amer) > 60, Est GFR (Non-Af Amer) > 60, Random Glucose 106, Calcium 9.0, Magnesium 1.7, Total Bilirubin 0.6, AST 27, ALT 12, Alkaline Phosphatase 71, Total Creatine Kinase 114, Total Protein 7.9, Albumin 4.3, Globulin 3.6, Albumin/Globulin Ratio 1.2 07/12/18 18:24: WBC 3.5 L, RBC 3.82, Hgb 12.4 L, Hct 36.7 L, MCV 96.1, MCH 32.5, MCHC 33.8, RDW 12.6, Plt Count 199, MPV 9.6, Neut % (Auto) 58.0, Lymph % (Auto) 34.2, Henry % (Auto) 6.6 H, Eos % (Auto) 0.9 L, Baso % (Auto) 0.3, Lymph # (Auto) 1.2, Henry # (Auto) 0.2, Eos # (Auto) 0.0, Baso # (Auto) 0.01, Absolute Neuts (auto) 2.02 I have reviewed the lab results: Yes - RAD Interpretation Narrative RAD Interpretations (Text): 07/12/18 18:45 Chest X-ray: No active pulmonary disease Head CT: No acute intracranial hemorrhage. Minimal chronic periventricular white matter ischemic changes.. Redemonstrated is a small elliptical shaped focus of CSF density left thalamus could represent a dilated perivascular space versus tiny chronic thalamic lacunar type infarct. Mild generalized volume loss. Radiology Orders: 07/12/18 17:01 HEAD W/O CONTRAST [CT] Stat 07/12/18 17:02 CHEST PORTABLE [RAD] Stat Booky: Radiologist - EKG Interpretation EKG Interpretation (Text): 07/12/18 19:48 EKG: NSR @ 67 bpm Interpreted by ED Physician: Yes Type: 12 lead EKG - Medication Orders Current Medication Orders: Discontinued Medications Risperidone (Risperdal Tab) 2 mg PO STAT STA; Protocol Stop: 07/12/18 17:05 Last Admin: 07/12/18 17:30 Dose: 2 mg - PA / BOLT SORTER / Resident Statement MD/DO has reviewed & agrees with the documentation as recorded. - Scribe Statement The provider has reviewed the documentation as recorded by the Preeti Bradley All medical record entries made by the Preeti were at my direction and personally dictated by me. I have reviewed the chart and agree that the record accurately reflects my personal performance of the history, physical exam, medical decision making, and the department course for this patient. I have also personally directed, reviewed, and agree with the discharge instructions and disposition. Disposition/Present on Arrival - Present on Arrival Any Indicators Present on Arrival: No History of DVT/PE: No History of Uncontrolled Diabetes: No Urinary Catheter: No History of Decub. Ulcer: No History Surgical Site Infection Following: None - Disposition Have Diagnosis and Disposition been Completed?: Yes Diagnosis: Schizophrenia Disposition Time: 21:00 Patient Problems: Current Active Problems Problem Status Onset Schizophrenia Acute Condition: STABLE
[2018-07-12 18:46] LABS: ALT/SGPT 12 U/L (7-56); AST/SGOT 27 U/L (17-59)
[2018-07-12 18:53] LABS: FREE T4 1.11 ng/dL (0.78-2.19)
--- NOTE | 2018-07-12 18:53 | CT ---
Date of service: 07/12/2018 PROCEDURE: CT HEAD WITHOUT CONTRAST. HISTORY: AMS COMPARISON: Comparison made with prior study dated 05/18/2018 comparison also made with prior MRI brain 05/20/2018. TECHNIQUE: Axial computed tomography images were obtained through the head/brain without intravenous contrast. Radiation dose: Total exam DLP = 1490.94 mGy-cm. This CT exam was performed using one or more of the following dose reduction techniques: Automated exposure control, adjustment of the mA and/or kV according to patient size, and/or use of iterative reconstruction technique. FINDINGS: HEMORRHAGE: No acute parenchymal, subarachnoid or extra-axial hemorrhage. BRAIN: Minimal chronic periventricular white matter ischemic changes.. Redemonstrated is a small elliptical shaped focus of CSF density left thalamus could represent a dilated perivascular space versus tiny chronic thalamic lacunar type infarct. Mild generalized volume loss. VENTRICLES: No obstructive hydrocephalus. CALVARIUM: Calvarium appears intact. Hyperostotic changes present most notably affecting the frontal calvarium. PARANASAL SINUSES: Unremarkable as visualized. No significant inflammatory changes. MASTOID AIR CELLS: Unremarkable as visualized. No inflammatory changes. OTHER FINDINGS: None. IMPRESSION: No acute intracranial hemorrhage. Minimal chronic periventricular white matter ischemic changes.. Redemonstrated is a small elliptical shaped focus of CSF density left thalamus could represent a dilated perivascular space versus tiny chronic thalamic lacunar type infarct. Mild generalized volume loss.
[2018-07-12 19:04] LABS: ACETAMINOPHEN < 10.0 ug/ml (10.0-20.0); SALICYLATE < 1 mg/dL (2.0-20.0)
--- NOTE | 2018-07-12 20:19 | ED PDOC ---
Physical Exam Vital Signs Reviewed: Yes Vital Signs Temp Pulse Resp BP Pulse Ox 07/12/18 17:00 97.9 F 78 18 167/92 H 100 Temperature: Afebrile Blood Pressure: Hypertensive Pulse: Regular Respiratory Rate: Normal Finger Stick Blood Glucose: 113 Medical Decision Making ED Course and Treatment: 07/12/18 20:18 Patient endorsed to me by Dr. Busby. Patient is a 64 year old male presenting to the ER as altered mental status pending PES evaluation. PES evaluated, will initiate screening. Patient is medically clear for screening. - Lab Interpretations Lab Results: Total Bilirubin 0.6 mg/dL (0.2-1.3) 07/12/18 18:24 AST 27 U/L (17-59) 07/12/18 18:24 ALT 12 U/L (7-56) 07/12/18 18:24 Alkaline Phosphatase 71 U/L (38-126) 07/12/18 18:24 Total Protein 7.9 g/dL (5.8-8.3) 07/12/18 18:24 Albumin 4.3 g/dL (3.0-4.8) 07/12/18 18:24 Globulin 3.6 gm/dL 07/12/18 18:24 Albumin/Globulin Ratio 1.2 (1.1-1.8) 07/12/18 18:24 - RAD Interpretation Radiology Orders: 07/12/18 17:01 HEAD W/O CONTRAST [CT] Stat 07/12/18 17:02 CHEST PORTABLE [RAD] Stat - Medication Orders Current Medication Orders: Discontinued Medications Risperidone (Risperdal Tab) 2 mg PO STAT STA; Protocol Stop: 07/12/18 17:05 Last Admin: 07/12/18 17:30 Dose: 2 mg - Scribe Statement The provider has reviewed the documentation as recorded by the Preeti Looney All medical record entries made by the Sueibenrique were at my direction and personally dictated by me. I have reviewed the chart and agree that the record accurately reflects my personal performance of the history, physical exam, medical decision making, and the department course for this patient. I have also personally directed, reviewed, and agree with the discharge instructions and disposition. Disposition/Present on Arrival - Present on Arrival Any Indicators Present on Arrival: No History of DVT/PE: No History of Uncontrolled Diabetes: No Urinary Catheter: No History of Decub. Ulcer: No History Surgical Site Infection Following: None - Disposition Have Diagnosis and Disposition been Completed?: No Diagnosis: Schizophrenia Disposition Time: 07:00 Patient Problems: Current Active Problems Problem Status Onset Schizophrenia Acute Condition: STABLE
[2018-07-12 22:30] LABS: PH,URINE 6.5 (4.7-8.0); URINE BILIRUBIN NEGATIVE (NEGATIVE); URINE BLOOD NEGATIVE (NEGATIVE); URINE GLUCOSE (UA) NEGATIVE (NEGATIVE); URINE LEUKOCYTE ESTERASE NEGATIVE Leu/uL (NEGATIVE); URINE PROTEIN NEGATIVE mg/dL (<30 mg/dL); URINE UROBILINOGEN 0.2 E.U./dL (<1 E.U./dL)
--- NOTE | 2018-07-12 22:30 | CARD ---
APPROVED REPORT Date of service: 07/12/2018 EKG Measurement Heart [id number] <Conclusion> Normal sinus rhythm Minor NDSTT abnormalities Borderlinel ECG
[2018-07-12 22:31] LABS: URINE APPEARANCE CLEAR (CLEAR); URINE COLOR LIGHT YELLOW (YELLOW)
[2018-07-12 22:52] LABS: BARBITURATES, UR NEGATIVE (NEGATIVE); BENZODIAZEPINES, UR NEGATIVE (NEGATIVE); OPIATES, UR NEGATIVE (NEGATIVE); PHENCYCLIDINE, UR NEGATIVE (NEGATIVE)
--- NOTE | 2018-07-13 11:22 | ED PDOC ---
Physical Exam - Physical Exam Narrative Physical Exam (Text): 07/13/18 07:[address] our from [address]. benton, awaiting the [facility] screening. 07/13/18 11:21 admit accepted to service of dr. beltran, inpt tx for schizophrenia Vital Signs Temp Pulse Resp BP Pulse Ox 07/13/18 11:17 72 18 133/92 H 100 07/13/18 08:43 79 18 117/72 100 07/13/18 07:43 74 18 117/67 100 07/13/18 03:00 72 18 124/62 100 07/12/18 23:53 98.0 F 69 18 118/73 98 07/12/18 20:00 70 18 127/85 100 07/12/18 17:00 97.9 F 78 18 167/92 H 100 Finger Stick Blood Glucose: 113 Medical Decision Making - Lab Interpretations Lab Results: Total Bilirubin 0.6 mg/dL (0.2-1.3) 07/12/18 18:24 AST 27 U/L (17-59) 07/12/18 18:24 ALT 12 U/L (7-56) 07/12/18 18:24 Alkaline Phosphatase 71 U/L (38-126) 07/12/18 18:24 Total Protein 7.9 g/dL (5.8-8.3) 07/12/18 18:24 Albumin 4.3 g/dL (3.0-4.8) 07/12/18 18:24 Globulin 3.6 gm/dL 07/12/18 18:24 Albumin/Globulin Ratio 1.2 (1.1-1.8) 07/12/18 18:24 Urine Color Light yellow (YELLOW) 07/12/18 22:25 Urine Appearance Clear (CLEAR) 07/12/18 22:25 Urine pH 6.5 (4.7-8.0) 07/12/18 22:25 Ur Specific [place] 1.010 (1.005-1.035) 07/12/18 22:25 Urine Protein Negative mg/dL (<30 mg/dL) 07/12/18 22:25 Urine Glucose (UA) Negative mg/dL (NEGATIVE) 07/12/18 22:25 Urine Ketones Negative mg/dL (NEGATIVE) 07/12/18 22:25 Urine Blood Negative (NEGATIVE) 07/12/18 22:25 Urine Nitrate Negative (NEGATIVE) 07/12/18 22:25 Urine Bilirubin Negative (NEGATIVE) 07/12/18 22:25 Urine Urobilinogen 0.2 E.U./dL (<1 E.U./dL) 07/12/18 22:25 Ur Leukocyte Esterase Negative Sachin/uL (NEGATIVE) 07/12/18 22:25 - RAD Interpretation Radiology Orders: 07/12/18 17:01 HEAD W/O CONTRAST [CT] Stat 07/12/18 17:02 CHEST PORTABLE [RAD] Stat - Medication Orders Current Medication Orders: Discontinued Medications Risperidone (Risperdal Tab) 2 mg PO STAT STA; Protocol Stop: 07/12/18 17:05 Last Admin: 07/12/18 17:30 Dose: 2 mg Disposition/Present on Arrival - Present on Arrival Any Indicators Present on Arrival: No History of DVT/PE: No History of Uncontrolled Diabetes: No Urinary Catheter: No History of Decub. Ulcer: No History Surgical Site Infection Following: None - Disposition Have Diagnosis and Disposition been Completed?: Yes Diagnosis: Schizophrenia Disposition: HOSPITALIZED Disposition Time: 11:22 Patient Plan: Admission Condition: STABLE Forms: AQUA PURE (Tunisian)
[2018-07-13] MEDS ORDERED: Alum-Mag Hydrox-Simethicone Susp (30 mL) PO PRN (16:13)
[2018-07-13] MEDS ORDERED: Magnesium Hydroxide Susp 30 ml UD PO PRN (16:14)
[2018-07-13] MEDS ORDERED: Haloperidol Lactate 2 mg/ml Liquid PO PRN (16:18)
[2018-07-13] MEDS ORDERED: DiphenhydrAMINE 50 mg/ml Inj IM PRN (16:27)
--- NOTE | 2018-07-13 17:49 | PCM.BM ---
<Yuval Vela - Last Filed: 07/13/18 17:43> Treatment Plan Problems - Problems identified on initial assessmt Aleterd thought process Date Initiated: 07/13/18 Time Initiated: 15:00 Assessment reference: NA Status: Active Priority: 1 Medication onadherenace Date Initiated: 07/13/18 Time Initiated: 15:00 Assessment reference: NA Status: Active Priority: 2 Ineffective coping Date Initiated: 07/13/18 Time Initiated: 15:00 Assessment reference: NA Status: Active Priority: 3 Treatment assets and liabiliti Patient Assests: ADL independent, negotiates basic needs Patient Liabilities: medical problems - Milieu Protocol Maintain good personal hygiene: every other day Encourage regular showers, every other day Remind patient to perform daily oral care, every other day Assist patient to perform ADL's Conduct patient checks and document Observation sheet: Q15 minutes Maintain personal safety: every shift Educate patient to report safety concerns to staff, every shift Monitor environment for contraband/sharps Medication safety: Monitor for expected outcome, potential side effects: every shift, Assess barriers to learning: every shift, Assess readiness for medication education: every shift Discharge/Continuing Care - Education Needs Education Needs: Patient Medication, Patient Diagnosis/Disease Process, Patient Coping Skills, Patient Placement options, Patient Community resources, Patient Activities of Daily Living, Patient Nutrition, Patient Health Practices/Safety, Patient Personal Hygiene/Grooming - Discharge Discharge Criteria: Tolerates medication w/o severe side effects, Free of paranoid thoughts, Normal sleep pattern, Ability to care for self, Reduction of target symptoms <Tom Hill - Last Filed: 07/14/18 11:28> - Diagnosis (1) Schizoaffective disorder Status: Acute Interventions: 07/14/18 11:28 * Haldol increased to 5 mg po TID for disorganization, cogentin 1 mg po bid for EPS prophylaxis * Klonopin 1 mg po bid for mood control and anxiety control * Will restart Risperdal for disorganization if patient continues to be disorganized after Haldol has been optimized * Awaiting medical consult, in the meantime restarted cozaar 25 mg po daily and synthroid 100 mcg daily (confirmed with Donald during phone ca <Christi Stone - Last Filed: 07/16/18 12:00> Family Contact Family involvement: Famliy/SO not involved - Outside Agency [facility] involvment: Following patient during stay Agency contact name: [facility] contact number: [phone] <Mandi Victoria - Last Filed: 07/16/18 12:02>
[2018-07-13] MEDS ORDERED: Divalproex 500 mg DR(BID formulation) PO SCH (22:00)
[2018-07-14 07:42] LABS: GLUCOSE,FASTING 81 mg/dL (65-110); HDL CHOLESTEROL 43 mg/dL (29-60)
[2018-07-14 07:53] LABS: LDL CHOLESTEROL 80 mg/dL (0-129)
[2018-07-14] MEDS ORDERED: Divalproex 500 mg DR(BID formulation) PO SCH ×3 (08:00→22:00)
[2018-07-14 08:03] LABS: FREE T4 1.22 ng/dL (0.78-2.19)
--- NOTE | 2018-07-14 11:31 | PCM.PSYCH ---
Initial Psychiatric Evaluation - Initial Psychiatric Evaluation Type of Admission: Voluntary Legal Status: Capacity History of Present Illness and Precipitating Events: Patient is 53yo Male with long h/o mental illness, treatment resistant schizophrenia vs schizoaffective disorder, pt was on clozaril, multiple psychiatric admissions in the past, most recently hospitalized at [facility] in 2016, who was brought to the emergency room by EMS after patient was acting bizarre at the boarding home. Per emergency room evaluation patient disorganized, flighty, bizarrely related and at times incoherent during interviews. PES clinician judged that patient did not have capacity to sign in so [facility] screening was requested. Screeners cleared patient overnight and this provider was so concerned about patient's psychiatric presentation, he was held until the morning to be interviewed by me in the ER. I found that his orientation and organization were improved since initial presentation such that he had capacity to sign in voluntarily and he was amenable to this recomm endation. On the unit patient has been disorganized, irritable and reluctant to take medications. He is a poor historian and he cannot respond coherentlv or reliably to most of my questioning. He is aware, however of his current location and he has a superficial understanding of his circumstances. Patient tells me that he was brought to the ER because the people at his boarding home didn't like his music. He says this a few times so it appears there may have been some conflict related to music. He is irritable with me and escalates at times so interview had to be discontinued to prevent further agitation. I spoke with Donald at patient's residential facility on 07/14/18 at 11 am. She reported that patient was pt was decompensating despite taking medications, Haldol 10 mg HS, Cogentin 2 mg HS, Klonopin 1 mg william bid as prescribed, Patient's brother recently sold their childhood home and patient keeps wanting to return there. Apparently patient flipped out on Sunday when staff refused to let him return to this home, prompting them to call EMS for evaluation in the ED. PSYCHIATRIC HISTORY Per Donald at patient's residential facility [phone], patient is currently prescribed: Haldol 10 mg HS, Cogentin 2 mg HS, Klonopin 1 mg william bid 01/26/16-02/07/16 [facility] ADMISSION: Pt was brought by EMS for evaluation of bizarre behavior and completely disorganized thought process. Pt was screaming on streets and threatening people in the community. Patient was discharged on: Ativan Cogentin 2 mg po bid Depakote 1000 mg bid Haldol 10 mg po TID Risperdal 4 mg PO AMHS Per prior records: patient was discharged from [facility] summer 2015 (per record from [place] ED in November 2015), Prior care by and then Mr.Carmel Vaz. As per Dr. Genao's assessment in 2013, pt had h/o been admitted to [place] in 2011, 2010, [facility] 2010. h/o being noncompliant with meds. Medication trials include; latuda, zyprexa, risperdal, depakote, clozaril, klonopin Med list was faxed over and filed in chart. SOCIAL HISTORY Born and raised in [facility]. Resides in a residential facility. Unclear if he currently uses tobacco, patient cannot respond to questioning reliably or coherently. The patient failed the outpatient lower level of care: Yes Current Medications: Active Medications Generic Name Dose Route Start Last Admin Trade Name Freq PRN Reason Stop Dose Admin Acetaminophen 650 mg 07/13/18 16:12 Tylenol 325mg Tab PO Q6H PRN Pain, moderate (4-7) Al Hydrox/Mg Hydrox/Simethicone 30 ml 07/13/18 16:13 Maalox Plus 30 Ml PO DAILY PRN Indigestion / Heartburn Benztropine Mesylate 1 mg 07/13/18 16:30 07/13/18 16:59 Cogentin PO 1 mg BID ALISIA Administration Diphenhydramine HCl 50 mg 07/13/18 16:21 Benadryl PO Q6 PRN Anxiety Diphenhydramine HCl 50 mg 07/13/18 16:27 Benadryl IM Q6H PRN Agitation Divalproex Sodium 500 mg 07/14/18 10:00 Kamilah Mari(*Bid*) PO QAM ALISIA Divalproex Sodium 1,000 mg 07/13/18 22:00 07/13/18 22:21 Kamilah Mari(*Bid*) PO 1,000 mg HS ALISIA Administration Protocol Haloperidol Lactate 5 mg 07/13/18 16:18 Haldol PO Q6H PRN Anxiety Protocol Haloperidol Lactate 5 mg 07/13/18 16:21 Haldol IM Q6H PRN Agitation Protocol Lorazepam 2 mg 07/13/18 16:20 Ativan PO Q6H PRN Anxiety Protocol Lorazepam 2 mg 07/13/18 16:25 Ativan IM Q6H PRN Agitation Protocol Magnesium Hydroxide 30 ml 07/13/18 16:14 Milk Of Magnesia PO DAILY PRN Constipation Risperidone 2 mg 07/13/18 17:00 07/13/18 16:59 Risperdal Tab PO 2 mg BID ALISIA Administration Protocol Zolpidem Tartrate 5 mg 07/13/18 16:18 Ambien PO HS PRN Insomnia Protocol Present on Admission - Present on Admission Any Indicators Present on Admission: No - Notes: Notes:: Please refer to 07/12/18 ER findings for ROS and physical exam results. Review of Systems - Review of Systems Review of Systems: Please refer to 07/12/18 ER findings for ROS and physical exam results. - Constitutional Constitutional: As Per HPI - EENT Eyes: As Per HPI Ears: As Per HPI Nose/Mouth/Throat: As Per HPI - Cardiovascular Cardiovascular: As Per HPI - Respiratory Respiratory: As Per HPI - Gastrointestinal Gastrointestinal: As Per HPI - Genitourinary Genitourinary: As Per HPI - Reproductive: Male Reproductive:Male: As Per HPI - Musculoskeletal Musculoskeletal: As Per HPI - Integumentary Integumentary: As Per HPI - Neurological Neurological: As Per HPI - Psychiatric Psychiatric: As Per HPI - Endocrine Endocrine: As Per HPI - Hematologic/Lymphatic Hematologic: As Per HPI Past Patient History - Past Psychiatric History Prior Professional Help: see hpi - PSYCHIATRIC Hx Schizophrenia: Yes Hx Substance Use: No - Infectious Disease Hx of Infectious Diseases: None - CARDIAC Hx Cardiac Disorders: Yes Hx Hypertension: No Hx Hypotension: Yes - PULMONARY Hx Respiratory Disorders: No Hx Tuberculosis: No - NEUROLOGICAL Hx Neurological Disorder: No HX Cerebrovascular Accident: No Hx Seizures: No - HEENT Hx HEENT Problems: No Hx Cataracts: No Hx Deafness: No Hx Difficulty Chewing: No Hx Epistaxis: No Hx Glaucoma: No Hx Macular Degeneration: No Other/Comment: pt incoherant unable to answer info from past records - RENAL Hx Chronic Kidney Disease: No Hx Dialysis: No Other/Comment: pt incoherant unable to answer info from past records - ENDOCRINE/METABOLIC Hx Hypothyroidism: Yes - HEMATOLOGICAL/ONCOLOGICAL Hx Blood Disorders: No Hx Cancer: No Hx Human Immunodeficiency Virus (HIV): No - INTEGUMENTARY Hx Dermatological Problems: Yes Other/Comment: dark brown birthmark lle - MUSCULOSKELETAL/RHEUMATOLOGICAL Hx Falls: Yes Other/Comment: pt incoherant unable to answer, info from past records - GASTROINTESTINAL Hx Gastrointestinal Disorders: No (obese) Other/Comment: pt incoherant unable to answer info from past records - GENITOURINARY/GYNECOLOGICAL Hx Genitourinary Disorders: No Hx Sexually Transmitted Disorders: No - SURGICAL HISTORY Hx Surgeries: No Other/Comment: pt incoherant unable to answer info from past records - ANESTHESIA Hx Anesthesia: No Hx Anesthesia Reactions: No Hx Malignant Hyperthermia: No - Medical/Surgical History Reviewed & confirmed: by pa Meds Allergies/Adverse Reactions: Allergies Allergy/AdvReac Type Severity Reaction Status Date / Time No Known Allergies Allergy Verified 07/13/18 14:19 Mental Status Examination - Personal Presentation Personal Presentation: Looks stated age - Affect Affect: Broad - Motor Activity Motor Activity: Psychomotor Agitation - Reliability in Providing Information Reliability in Providing Information: Poor, due to alteration in thoughts - Speech Speech: Disorganized, Irrelevant - Mood Mood: Anxious - Formal Thought Process Formal Thought Process: Hallucinations, Delusions, Paranoia, Loosening of associations - Cognitive Functions Orientation: Place, Situation (superficially) Sensorium: Alert Attention/Concentration: Easily distracted Abstract Thinking: [place] Estimate of Intelligence: Below average Judgement: Imparied, as evidence by: Poor judgement, Imparied, as evidence by: Lack of insight into illness Memory: Recent impaired, as evidence by: Inability to recall events of the day, Remote impaired as evidenced by: Inability to recall sig life events, Remote impaired as evidenced by: Inability to recall historical events - Risk Risk: Diminished functioning Psychiatric Physical Exam - Physical Exam Reviewed and confirmed: Emergency Department Physical Exam (Please refer to 07/12/18 ER findings for ROS and physical exam results.) Results - Vital Signs Recent Vital Signs: Last Vital Signs Temp 97.5 F L 07/13/18 14:25 Pulse 72 07/13/18 16:47 Resp 20 07/13/18 14:25 BP 149/99 H 07/13/18 16:47 Pulse Ox 99 07/13/18 14:25 - Labs Result Diagrams: 07/12/18 18:24 07/12/18 18:24 Labs: Laboratory Results - last 24 hr 07/13/18 17:12 Valproic Acid < 10 L - Impressions Impression: Please refer to 07/12/18 ER findings for ROS and physical exam results. DSM Plan - DSM 5 DSM 5 Diagnosis: Schizoaffective Disorder History of Alcohol Abuse - Recommended/Plan of Treatment Treatment Recommendations and Plan of Treatment: * group, milieu and supportive tx * Haldol increased to 5 mg po TID for disorganization, cogentin 1 mg po bid for EPS prophylaxis * Klonopin 1 mg po bid for mood control and anxiety control * Will restart Risperdal for disorganization if patient continues to be disorganized after Haldol has been optimized * Haldol/Ativan/Benadryl prns for agitation * Ambien 5 mg po HS prn: insomnia * Awaiting medical consult, in the meantime restarted cozaar 25 mg po daily and synthroid 100 mcg daily (confirmed with Donald during phone call at 11 am 07/14/18) * Vitals reviewed and noted below: Selected Entries 07/13/18 07/13/18 07/14/18 14:25 16:47 08:03 Temperature 97.5 F L 98.2 F Pulse Rate 79 74 Respiratory 20 18 Rate Blood Pressure 143/86 149/99 H 142/88 ER LABS AND STUDIES Please refer to 07/12/18 ER findings for ROS and physical exam results. 07/12/18 18:45 Chest X-ray: No active pulmonary disease Head CT: No acute intracranial hemorrhage. Minimal chronic periventricular white matter ischemic changes.. Redemonstrated is a small elliptical shaped focus of CSF density left thalamus could represent a dilated perivascular space versus tiny chronic thalamic lacunar type infarct. Mild generalized volume loss. 07/12/18 19:48 Type: 12 lead EKg: NSR @ 67 bpm Interpreted by ED Physician: Yes Admission labs Laboratory Tests 07/12/18 07/12/18 07/12/18 16:55 18:24 18:24 WBC 3.5 L RBC 3.82 Hgb 12.4 L Hct 36.7 L MCV 96.1 MCH 32.5 MCHC 33.8 RDW 12.6 Plt Count 199 MPV 9.6 Neut % (Auto) 58.0 Lymph % (Auto) 34.2 [place] % (Auto) 6.6 H Eos % (Auto) 0.9 L Baso % (Auto) 0.3 Lymph # (Auto) 1.2 [place] # (Auto) 0.2 Eos # (Auto) 0.0 Baso # (Auto) 0.01 Absolute Neuts (auto) 2.02 Sodium 128 L Potassium 4.3 Chloride 96 L Carbon Dioxide 31 Anion Gap 7 L BUN 12 Creatinine 0.7 L Est GFR ( Amer) > 60 Est GFR (Non-Af Amer) > 60 POC Glucose (mg/dL) 113 H Random Glucose 106 Fasting Glucose Calcium 9.0 Magnesium 1.7 Total Bilirubin 0.6 AST 27 ALT 12 Alkaline Phosphatase 71 Total Creatine Kinase 114 Total Protein 7.9 Albumin 4.3 Globulin 3.6 Albumin/Globulin Ratio 1.2 Triglycerides Cholesterol LDL Cholesterol Direct HDL Cholesterol Free T4 TSH 3rd Generation Urine Color Urine Appearance Urine pH Ur Specific [place] Urine Protein Urine Glucose (UA) Urine Ketones Urine Blood Urine Nitrate Urine Bilirubin Urine Urobilinogen Ur Leukocyte Esterase Salicylates Urine Opiates Screen Urine Methadone Screen Acetaminophen Ur Barbiturates Screen Valproic Acid Ur Phencyclidine Scrn Ur Amphetamines Screen U Benzodiazepines Scrn U Oth Cocaine Metabols U Cannabinoids Screen Alcohol, Quantitative 07/12/18 07/12/18 07/12/18 18:24 18:24 22:25 WBC RBC Hgb Hct MCV MCH MCHC RDW Plt Count MPV Neut % (Auto) Lymph % (Auto) [place] % (Auto) Eos % (Auto) Baso % (Auto) Lymph # (Auto) [place] # (Auto) Eos # (Auto) Baso # (Auto) Absolute Neuts (auto) Sodium Potassium Chloride Carbon Dioxide Anion Gap BUN Creatinine Est GFR ( Amer) Est GFR (Non-Af Amer) POC Glucose (mg/dL) Random Glucose Fasting Glucose Calcium Magnesium Total Bilirubin AST ALT Alkaline Phosphatase Total Creatine Kinase Total Protein Albumin Globulin Albumin/Globulin Ratio Triglycerides Cholesterol LDL Cholesterol Direct HDL Cholesterol Free T4 1.11 TSH 3rd Generation 7.63 H Urine Color Light yellow Urine Appearance Clear Urine pH 6.5 Ur Specific [place] 1.010 Urine Protein Negative Urine Glucose (UA) Negative Urine Ketones Negative Urine Blood Negative Urine Nitrate Negative Urine Bilirubin Negative Urine Urobilinogen 0.2 Ur Leukocyte Esterase Negative Salicylates < 1 L Urine Opiates Screen Urine Methadone Screen Acetaminophen < 10.0 L Ur Barbiturates Screen Valproic Acid Ur Phencyclidine Scrn Ur Amphetamines Screen U Benzodiazepines Scrn U Oth Cocaine Metabols U Cannabinoids Screen Alcohol, Quantitative < 10 07/12/18 07/13/18 07/14/18 22:25 17:12 07:00 WBC RBC Hgb Hct MCV MCH MCHC RDW Plt Count MPV Neut % (Auto) Lymph % (Auto) [place] % (Auto) Eos % (Auto) Baso % (Auto) Lymph # (Auto) [place] # (Auto) Eos # (Auto) Baso # (Auto) Absolute Neuts (auto) Sodium Potassium Chloride Carbon Dioxide Anion Gap BUN Creatinine Est GFR ( Amer) Est GFR (Non-Af Amer) POC Glucose (mg/dL) Random Glucose Fasting Glucose 81 Calcium Magnesium Total Bilirubin AST ALT Alkaline Phosphatase Total Creatine Kinase Total Protein Albumin Globulin Albumin/Globulin Ratio Triglycerides 55 Cholesterol 161 LDL Cholesterol Direct 80 HDL Cholesterol 43 Free T4 TSH 3rd Generation Urine Color Urine Appearance Urine pH Ur Specific [place] Urine Protein Urine Glucose (UA) Urine Ketones Urine Blood Urine Nitrate Urine Bilirubin Urine Urobilinogen Ur Leukocyte Esterase Salicylates Urine Opiates Screen Negative Urine Methadone Screen Negative Acetaminophen Ur Barbiturates Screen Negative Valproic Acid < 10 L Ur Phencyclidine Scrn Negative Ur Amphetamines Screen Negative U Benzodiazepines Scrn Negative U Oth Cocaine Metabols Negative U Cannabinoids Screen Negative Alcohol, Quantitative 07/14/18 07:00 WBC RBC Hgb Hct MCV MCH MCHC RDW Plt Count MPV Neut % (Auto) Lymph % (Auto) [place] % (Auto) Eos % (Auto) Baso % (Auto) Lymph # (Auto) [place] # (Auto) Eos # (Auto) Baso # (Auto) Absolute Neuts (auto) Sodium Potassium Chloride Carbon Dioxide Anion Gap BUN Creatinine Est GFR ( Amer) Est GFR (Non-Af Amer) POC Glucose (mg/dL) Random Glucose Fasting Glucose Calcium Magnesium Total Bilirubin AST ALT Alkaline Phosphatase Total Creatine Kinase Total Protein Albumin Globulin Albumin/Globulin Ratio Triglycerides Cholesterol LDL Cholesterol Direct HDL Cholesterol Free T4 1.22 TSH 3rd Generation 6.71 H Urine Color Urine Appearance Urine pH Ur Specific [place] Urine Protein Urine Glucose (UA) Urine Ketones Urine Blood Urine Nitrate Urine Bilirubin Urine Urobilinogen Ur Leukocyte Esterase Salicylates Urine Opiates Screen Urine Methadone Screen Acetaminophen Ur Barbiturates Screen Valproic Acid Ur Phencyclidine Scrn Ur Amphetamines Screen U Benzodiazepines Scrn U Oth Cocaine Metabols U Cannabinoids Screen Alcohol, Quantitative Projected ELOS: 10 days Prognosis: guarded Discharge Plan and Discharge Criteria: Day treatment program Initial Psych Certification - Initial Certification I certify that the inpatient psychiatric facility admission was medically necessary for either: Treatment which could reasonbly be expected to improve pt's condition, Diagnostic study I estimate of hospitalization is necessary for proper treatment of the patient: 10 Unit of Time: Days
[2018-07-15] MEDS ORDERED: Levothyroxine 100 MCG TAB PO SCH (06:00)
[2018-07-15 10:44] LABS: BLOOD UREA NITROGEN 8 mg/dL (7-21); GFR NON-AFRICAN AMERICAN > 60
--- NOTE | 2018-07-15 15:17 | PCM.PYCHPN ---
Psychiatric Progress Note - Psychiatric Progress Note Patient seen today, length of contact: 30min Patient Chief Complaint: "I have a treatment for you all....I went back in time. It's made with a certain ingredient, coffee, Pepsi and salt, then you need to cut worm in half, it will be still moving, you put that mixture in their body and they , I have cure for measles it is a tea bag and salt....." Problems Identified/Issues Discussed: this engineering writer attempted to discuss suicide/ homicide prevention, past psychiatric h/o, current psychiatric symptoms, medical problems, risk/benefits and alternatives of medications, medications compliance, coping strategies, substan ce abuse h/o, relapse prevention, importance of follow up with psychiatrist and therapist, discharge plan, but comprehension is very questionable. Medical Problems: Patient has multiple medical issues, patient was seen by Dr. Alvarado Diagnostic Results: 07/12/18 18:24 07/15/18 10:20 Lab Results 07/15/18 10:20: Sodium 136, Potassium 4.3, Chloride 98, Carbon Dioxide 31, Anion Gap 11, BUN 8, Creatinine 0.7 L, Est GFR ( Amer) > 60, Est GFR (Non-Af Amer) > 60, Random Glucose 116 H, Calcium 9.0 07/14/18 07:00: RPR Nonreactive 07/14/18 07:00: Free T4 1.22, TSH 3rd Generation 6.71 H 07/14/18 07:00: Fasting Glucose 81, Triglycerides 55, Cholesterol 161, LDL Cholesterol Direct 80, HDL Cholesterol 43 07/13/18 17:12: Valproic Acid < 10 L 07/12/18 22:25: Urine Opiates Screen Negative, Urine Methadone Screen Negative, Ur Barbiturates Screen Negative, Ur Phencyclidine Scrn Negative, Ur Amphetamines Screen Negative, U Benzodiazepines Scrn Negative, U Oth Cocaine Metabols Negative, U Cannabinoids Screen Negative 07/12/18 22:25: Urine Color Light yellow, Urine Appearance Clear, Urine pH 6.5, Ur Specific [place] 1.010, Urine Protein Negative, Urine Glucose (UA) Negative, Urine Ketones Negative, Urine Blood Negative, Urine Nitrate Negative, Urine Bilirubin Negative, Urine Urobilinogen 0.2, Ur Leukocyte Esterase Negative 07/12/18 18:24: Free T4 1.11, TSH 3rd Generation 7.63 H, Alcohol, Quantitative < 10 07/12/18 18:24: Salicylates < 1 L, Acetaminophen < 10.0 L 07/12/18 18:24: Sodium 128 L, Potassium 4.3, Chloride 96 L, Carbon Dioxide 31, Anion Gap 7 L, BUN 12, Creatinine 0.7 L, Est GFR ( Amer) > 60, Est GFR (Non-Af Amer) > 60, Random Glucose 106, Calcium 9.0, Magnesium 1.7, Total Bilirubin 0.6, AST 27, ALT 12, Alkaline Phosphatase 71, Total Creatine Kinase 114, Total Protein 7.9, Albumin 4.3, Globulin 3.6, Albumin/Globulin Ratio 1.2 07/12/18 18:24: WBC 3.5 L, RBC 3.82, Hgb 12.4 L, Hct 36.7 L, MCV 96.1, MCH 32.5, MCHC 33.8, RDW 12.6, Plt Count 199, MPV 9.6, Neut % (Auto) 58.0, Lymph % (Auto) 34.2, [place] % (Auto) 6.6 H, Eos % (Auto) 0.9 L, Baso % (Auto) 0.3, Lymph # (Auto) 1.2, [place] # (Auto) 0.2, Eos # (Auto) 0.0, Baso # (Auto) 0.01, Absolute Neuts (auto) 2.02 07/12/18 16:55: POC Glucose (mg/dL) 113 H Vital Signs Temp Pulse Resp BP Pulse Ox 07/15/18 06:37 98.4 F 60 18 122/75 07/14/18 16:50 80 150/75 07/14/18 08:03 98.2 F 74 18 142/88 07/13/18 16:47 72 149/99 H 07/13/18 14:25 97.5 F L 79 20 143/86 99 07/13/18 13:29 77 18 136/78 100 07/13/18 11:17 72 18 133/92 H 100 07/13/18 08:43 79 18 117/72 100 07/13/18 07:43 74 18 117/67 100 07/13/18 03:00 72 18 124/62 100 07/12/18 23:53 98.0 F 69 18 118/73 98 07/12/18 20:00 70 18 127/85 100 07/12/18 17:00 97.9 F 78 18 167/92 H 100 DSM 5 Symptoms Update: As per Dr. Hill's assessment: patient is 53yo Male with long h/o mental illness, treatment resistant schizophrenia vs schizoaffective disorder, pt was on clozaril, multiple psychiatric admissions in the past, most recently hospitalized at [facility] [place], who was brought to the emergency room by EMS after patient was acting bizarre at the boarding home. Per emergency room evaluation patient disorganized, flighty, bizarrely related and at times incoherent during interviews. PES clinician judged that patient did not have capacity to sign in so [facility] screening was requested. Screeners cleared patient overnight and this provider was so concerned about patient's psychiatric presentation, he was held until the morning to be interviewed by me in the ER. I found that his orientation and organization were improved since initial presentation such that he had capacity to sign in voluntarily and he was amenable to this recommendation. As per nursing report ,on the unit patient has been disorganized, irritable and reluctant to take medications. Patient was seen today at the treatment team meeting, patient presented to be completely disorganized, was saying random things, word salad, for example:"I have a treatment for you all....I went back in time. It's made with a certain ingredient, coffee, Pepsi and salt, then you need to cut worm in half, it will be still moving, you put that mixture in their body and they , I have cure for measles it is a tea bag and salt....." no meaningful conversation possible. spoke with Donald at patient's residential facility on 07/14/18 at 11 am. She reported that patient was pt was decompensating despite taking medications, Haldol 10 mg HS, Cogentin 2 mg HS, Klonopin 1 mg william bid as prescribed, Patient's brother recently sold their childhood home and patient k eeps wanting to return there. Apparently patient flipped out on Sunday when staff refused to let him return to this home, prompting them to call EMS for evaluation in the ED. PSYCHIATRIC HISTORY Per Donald at patient's residential facility [phone], patient is currently prescribed: Haldol 10 mg HS, Cogentin 2 mg HS, Klonopin 1 mg william bid h/o being noncompliant with meds. Medication trials include; latuda, zyprexa, risperdal, depakote, clozaril, klonopin Med list was confirmed by Dr. Hill and filed in chart. So far patient tolerates medications well, no side effects observed or reported, aims 0, no EPS. Impression: Schizophrenia, treatment resistant Medication Change: Yes Medical Record Reviewed: Yes Consults ordered or reviewed: Dr. Alvarado's consultation appreciated Mental Status Examination - Cognitive Function Orientation: Place, Situation (superficially) Attention: Poor Concentration: Poor Association: Loose Fund of Knowledge: Poor - Mood Mood: Anxious - Affect Affect: Broad - Formal Thought Process Formal Thought Process: Hallucinations, Delusions, Paranoia, Loosening of associations - Suicidal Ideation Suicidal Ideation: No - Homicidal Ideation Homicidal Ideation: No Goal/Treatment Plan - Goal/Treatment Plan Need for Continued Stay: Remain at risks for inpatient hospitalization, Severe depression anxiety, Discharge may exacerbated symptoms, Severe functional impairment Progress Toward Problem(s) and Goals/Treatment Plan: group, milieu and supportive tx * Haldol increased to 5 mg po TID for disorganization, cogentin 1 mg po bid for EPS prophylaxis * Klonopin 1 mg po bid for mood control and anxiety control * Will restart Risperdal for disorganization if patient continues to be disorganized after Haldol has been optimized * Haldol/Ativan/Benadryl prns for agitation * Ambien 5 mg po HS prn: insomnia * medical consult Family involvement Follow up on labs Will monitor closely Pt was educated about risk/benefits and alternatives of medications, coping strategies (safety plan, suicide prevention), relapse prevention, importance of follow up with psychiatrist and therapist, stay away from drugs/alcohol/smoking Patient might benefit from ECT, will find out if patient has power of patent prosecution attorney, present moment patient lacks capacity to sign consent for ECT treatment Estimated Date of D/C: 07/22/18
--- NOTE | 2018-07-15 19:37 | CON ---
DATE: 07/14/2018 consult has been redictated please see the report Julien Alvarado MD [facility]
[2018-07-16] MEDS: Levothyroxine 125 MCG TAB PO SCH (06:28)
--- NOTE | 2018-07-16 13:22 | PN ---
DATE: 07/15/2018 SUBJECTIVE: The patient is seen today on 07/15/2018. The patient seems comfortable. No distress. No new complaints. He still has irrelevant thoughts, but he answers the questions. Denied chest pain. Denied short of breath. He is eating. He goes to the bathroom with no problem and he has no new complaints. PHYSICAL EXAMINATION: VITAL SIGNS: On 07/15/2018, temperature 98.4, heart rate 60, blood pressure 122/75, respirations 18. HEAD AND NECK: Examination is normal. No JVD. No thyromegaly. CHEST: Clear bilateral. CARDIAC: First sound and second sound is normal. No murmur, rub, or gallop. ABDOMEN: Obese, nontender. EXTREMITIES: No edema. NEUROLOGIC: Exam is normal. LABORATORY STUDY: Today, sodium 136, potassium 4.3, chloride 98, bicarb 31, BUN 8, creatinine 0.7, blood sugar 116 and calcium is 9. Triglycerides here 55, cholesterol total 161, LDL 80, and HDL 43. IMPRESSION AND PLAN: 1. Hyponatremia, resolved. Continue to monitor, stable now. Normal sodium 2. Hypothyroidism. We will continue Synthroid at adjusted dose. 3. Hypertension, stable. The patient has stable blood pressure. 4. Schizophrenia. Continue current psych medications including Ambien, Klonopin, Haldol as needed and Cogentin when needed. The patient is otherwise stable. We will continue current therapy. We will follow up clinically. We will discuss with Dr. Fink. Julien Alvarado MD
--- NOTE | 2018-07-16 14:19 | PCM.PYCHPN ---
Psychiatric Progress Note - Psychiatric Progress Note Patient seen today, length of contact: 30min Patient Chief Complaint: "I am an police officer booking, I am on duty... 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 Medical Problems: Patient has multiple medical issues, patient was seen by Dr. Alvarado Diagnostic Results: 07/12/18 18:24 07/15/18 10:20 Lab Results 07/15/18 10:20: Sodium 136, Potassium 4.3, Chloride 98, Carbon Dioxide 31, Anion Gap 11, BUN 8, Creatinine 0.7 L, Est GFR ( Amer) > 60, Est GFR (Non-Af Amer) > 60, Random Glucose 116 H, Calcium 9.0 07/14/18 07:00: RPR Nonreactive 07/14/18 07:00: Free T4 1.22, TSH 3rd Generation 6.71 H 07/14/18 07:00: Fasting Glucose 81, Triglycerides 55, Cholesterol 161, LDL Cholesterol Direct 80, HDL Cholesterol 43 07/13/18 17:12: Valproic Acid < 10 L 07/12/18 22:25: Urine Opiates Screen Negative, Urine Methadone Screen Negative, Ur Barbiturates Screen Negative, Ur Phencyclidine Scrn Negative, Ur Amphetamines Screen Negative, U Benzodiazepines Scrn Negative, U Oth Cocaine Metabols Negative, U Cannabinoids Screen Negative 07/12/18 22:25: Urine Color Light yellow, Urine Appearance Clear, Urine pH 6.5, Ur Specific [place] 1.010, Urine Protein Negative, Urine Glucose (UA) Negative, Urine Ketones Negative, Urine Blood Negative, Urine Nitrate Negative, Urine Bilirubin Negative, Urine Urobilinogen 0.2, Ur Leukocyte Esterase Negative 07/12/18 18:24: Free T4 1.11, TSH 3rd Generation 7.63 H, Alcohol, Quantitative < 10 07/12/18 18:24: Salicylates < 1 L, Acetaminophen < 10.0 L 07/12/18 18:24: Sodium 128 L, Potassium 4.3, Chloride 96 L, Carbon Dioxide 31, Anion Gap 7 L, BUN 12, Creatinine 0.7 L, Est GFR ( Amer) > 60, Est GFR (Non-Af Amer) > 60, Random Glucose 106, Calcium 9.0, Magnesium 1.7, Total Bilirubin 0.6, AST 27, ALT 12, Alkaline Phosphatase 71, Total Creatine Kinase 114, Total Protein 7.9, Albumin 4.3, Globulin 3.6, Albumin/Globulin Ratio 1.2 07/12/18 18:24: WBC 3.5 L, RBC 3.82, Hgb 12.4 L, Hct 36.7 L, MCV 96.1, MCH 32.5, MCHC 33.8, RDW 12.6, Plt Count 199, MPV 9.6, Neut % (Auto) 58.0, Lymph % (Auto) 34.2, [place] % (Auto) 6.6 H, Eos % (Auto) 0.9 L, Baso % (Auto) 0.3, Lymph # (Auto) 1.2, [place] # (Auto) 0.2, Eos # (Auto) 0.0, Baso # (Auto) 0.01, Absolute Neuts (auto) 2.02 07/12/18 16:55: POC Glucose (mg/dL) 113 H Vital Signs Temp Pulse Resp BP Pulse Ox 07/15/18 06:37 98.4 F 60 18 122/75 07/14/18 16:50 80 150/75 07/14/18 08:03 98.2 F 74 18 142/88 07/13/18 16:47 72 149/99 H 07/13/18 14:25 97.5 F L 79 20 143/86 99 07/13/18 13:29 77 18 136/78 100 07/13/18 11:17 72 18 133/92 H 100 07/13/18 08:43 79 18 117/72 100 07/13/18 07:43 74 18 117/67 100 07/13/18 03:00 72 18 124/62 100 07/12/18 23:53 98.0 F 69 18 118/73 98 07/12/18 20:00 70 18 127/85 100 07/12/18 17:00 97.9 F 78 18 167/92 H 100 Temp Pulse Resp BP Pulse Ox 97.3 F L 71 19 114/72 99 07/16/18 07:00 07/16/18 10:13 07/16/18 07:00 07/16/18 10:13 07/13/18 14:25 DSM 5 Symptoms Update: patient is 53yo Male with long h/o mental illness, treatment resistant schizophrenia vs schizoaffective disorder, pt was on clozaril, multiple psychiatric admissions in the past, most [place] [facility] [place], who was brought to the emergency room by EMS after patient was acting bizarre at the boarding home. Please see admission note for more detailed information As per nursing report ,on the unit patient has been disorganized, but more pleasant, still requires strong encouragement from staff to take his medications. 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 spoke with Donald at patient's residential facility on 07/14/18 at 11 am. She reported that patient was pt was decompensating despite taking med ications, Haldol 10 mg HS, Cogentin 2 mg HS, Klonopin 1 mg william bid as prescribed, Patient's brother recently sold their childhood home and patient keeps wanting to return there. Apparently patient flipped out on Sunday when staff refused to let him return to this home, prompting them to call EMS for evaluation in the ED. So far patient tolerates medications well, no side effects observed or reported, aims 0, no EPS. As per staff patient does not exhibit any aggression/agitation but does required constant redirection, encouragement to take medications. Impression: Schizophrenia, treatment resistant Medication Change: Yes (Haloperidol increased) Medical Record Reviewed: Yes Consults ordered or reviewed: Dr. Alvarado's consultation appreciated Mental Status Examination - Cognitive Function Orientation: Place, Situation (superficially) Attention: Poor Concentration: Poor Association: Loose Fund of Knowledge: Poor - Mood Mood: Anxious - Affect Affect: Broad - Formal Thought Process Formal Thought Process: Hallucinations, Delusions, Paranoia, Loosening of associations - Suicidal Ideation Suicidal Ideation: No - Homicidal Ideation Homicidal Ideation: No Goal/Treatment Plan - Goal/Treatment Plan Need for Continued Stay: Remain at risks for inpatient hospitalization, Severe depression anxiety, Discharge may exacerbated symptoms, Severe functional impairment Progress Toward Problem(s) and Goals/Treatment Plan: group, milieu and supportive tx * Haldol increased to 10mg bid for disorganization, cogentin 1 mg po bid for EPS prophylaxis * Klonopin 1 mg po bid for mood control and anxiety control * Will restart Risperdal for disorganization if patient continues to be disorganized after Haldol has been optimized * Haldol/Ativan/Benadryl prns for agitation * Ambien 5 mg po HS prn: insomnia * medical consult Family involvement Follow up on labs Will monitor closely Pt was educated about risk/benefits and alternatives of medications, coping strategies (safety plan, suicide prevention), relapse prevention, importance of follow up with psychiatrist and therapist, stay away from drugs/alcohol/smoking Patient might benefit from ECT, will find out if patient has power of securities attorney, present moment patient lacks capacity to sign consent for ECT treatment Estimated Date of D/C: 07/22/18
[2018-07-17] MEDS: Levothyroxine 125 MCG TAB PO SCH (06:54)
--- NOTE | 2018-07-17 14:07 | PCM.PYCHPN ---
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 Medical Problems: Patient has multiple medical issues, patient was seen by Dr. Alvarado Diagnostic Results: 07/12/18 18:24 07/15/18 10:20 Lab Results 07/15/18 10:20: Sodium 136, Potassium 4.3, Chloride 98, Carbon Dioxide 31, Anion Gap 11, BUN 8, Creatinine 0.7 L, Est GFR ( Amer) > 60, Est GFR (Non-Af Amer) > 60, Random Glucose 116 H, Calcium 9.0 07/14/18 07:00: RPR Nonreactive 07/14/18 07:00: Free T4 1.22, TSH 3rd Generation 6.71 H 07/14/18 07:00: Fasting Glucose 81, Triglycerides 55, Cholesterol 161, LDL Cholesterol Direct 80, HDL Cholesterol 43 07/13/18 17:12: Valproic Acid < 10 L 07/12/18 22:25: Urine Opiates Screen Negative, Urine Methadone Screen Negative, Ur Barbiturates Screen Negative, Ur Phencyclidine Scrn Negative, Ur Amphetamines Screen Negative, U Benzodiazepines Scrn Negative, U Oth Cocaine Metabols Negative, U Cannabinoids Screen Negative 07/12/18 22:25: Urine Color Light yellow, Urine Appearance Clear, Urine pH 6.5, Ur Specific [place] 1.010, Urine Protein Negative, Urine Glucose (UA) Negative, Urine Ketones Negative, Urine Blood Negative, Urine Nitrate Negative, Urine Bilirubin Negative, Urine Urobilinogen 0.2, Ur Leukocyte Esterase Negative 07/12/18 18:24: Free T4 1.11, TSH 3rd Generation 7.63 H, Alcohol, Quantitative < 10 07/12/18 18:24: Salicylates < 1 L, Acetaminophen < 10.0 L 07/12/18 18:24: Sodium 128 L, Potassium 4.3, Chloride 96 L, Carbon Dioxide 31, Anion Gap 7 L, BUN 12, Creatinine 0.7 L, Est GFR ( Amer) > 60, Est GFR (N on-Af Amer) > 60, Random Glucose 106, Calcium 9.0, Magnesium 1.7, Total Bilirubin 0.6, AST 27, ALT 12, Alkaline Phosphatase 71, Total Creatine Kinase 114, Total Protein 7.9, Albumin 4.3, Globulin 3.6, Albumin/Globulin Ratio 1.2 07/12/18 18:24: WBC 3.5 L, RBC 3.82, Hgb 12.4 L, Hct 36.7 L, MCV 96.1, MCH 32.5, MCHC 33.8, RDW 12.6, Plt Count 199, MPV 9.6, Neut % (Auto) 58.0, Lymph % (Auto) 34.2, [place] % (Auto) 6.6 H, Eos % (Auto) 0.9 L, Baso % (Auto) 0.3, Lymph # (Auto) 1.2, [place] # (Auto) 0.2, Eos # (Auto) 0.0, Baso # (Auto) 0.01, Absolute Neuts (auto) 2.02 07/12/18 16:55: POC Glucose (mg/dL) 113 H Vital Signs Temp Pulse Resp BP Pulse Ox 07/15/18 06:37 98.4 F 60 18 122/75 07/14/18 16:50 80 150/75 07/14/18 08:03 98.2 F 74 18 142/88 07/13/18 16:47 72 149/99 H 07/13/18 14:25 97.5 F L 79 20 143/86 99 07/13/18 13:29 77 18 136/78 100 07/13/18 11:17 72 18 133/92 H 100 07/13/18 08:43 79 18 117/72 100 07/13/18 07:43 74 18 117/67 100 07/13/18 03:00 72 18 124/62 100 07/12/18 23:53 98.0 F 69 18 118/73 98 07/12/18 20:00 70 18 127/85 100 07/12/18 17:00 97.9 F 78 18 167/92 H 100 Temp Pulse Resp BP Pulse Ox 97.3 F L 71 19 114/72 99 07/16/18 07:00 07/16/18 10:13 07/16/18 07:00 07/16/18 10:13 07/13/18 14:25 DSM 5 Symptoms Update: patient is 53yo Male with long h/o mental illness, treatment resistant schizophrenia vs schizoaffective disorder, pt was on clozaril, multiple psychiatric admissions in the past, most recently hospitalized at [facility] in [place], who was brought to the emergency room by EMS after patient was acting bizarre at the boarding home. Please see admission note for more detailed information As per nursing report ,on the unit patient has been disorganized, but more pleasant, still requires strong encouragement from staff to take his medi cations. Patient was seen today in his room, asked if he can learn how to cook. pt reported that he does not hear voices, denied thoughts of harming self or others, then started to giggle inappropriately, then covered his head with the blanket and refused to talk. pt was offered ECT tx yesterday, but pt refused. spoke with Donald at patient's residential facility on 07/14/18 at 11 am. She reported that patient was pt was decompensating despite taking medications, Haldol 10 mg HS, Cogentin 2 mg HS, Klonopin 1 mg william bid as prescribed, Patient's brother recently sold their childhood home and patient keeps wanting to return there. Apparently patient flipped out on Sunday when staff refused to let him return to this home, prompting them to call EMS for evaluation in the ED. So far patient tolerates medications well, no side effects observed or reported, aims 0, no EPS. As per staff patient does not exhibit any aggression/agitation but does required constant redirection, encouragement to take medications. SW contacted [facility]([phone]) to obtain collateral information and spoke with staff member, Martha Boateng . pt was delusional that his parents still alive and living in [place]. As a result, patient wanted to visit his parents but were told redirected by staff at [facility]. Patient became upset and became verbally aggressive in which pt was yelling in the house and on the street. Patient has a hx of banging on surfaces and running away when he becomes upset but did exhibit such behavior prior to admission. pt's brother does not want pt to have ECT tx. Impression: Schizophrenia, treatment resistant Medication Change: Yes (Haloperidol increased) Medical Record Reviewed: Yes Mental Status Examination - Cognitive Function Orientation: Place, Situation (superficially) Attention: Poor Concentration: Poor Association: Loose Fund of Knowledge: Poor - Mood Mood: Anxious - Affect Affect: Broad - Formal Thought Process Formal Thought Process: Hallucinations, Delusions, Paranoia, Loosening of associations - Suicidal Ideation Suicidal Ideation: No - Homicidal Ideation Homicidal Ideation: No Goal/Treatment Plan - Goal/Treatment Plan Need for Continued Stay: Remain at risks for inpatient hospitalization, Severe depression anxiety, Discharge may exacerbated symptoms, Severe functional impairment Progress Toward Problem(s) and Goals/Treatment Plan: group, milieu and supportive tx * Haldol 10mg bid for disorganization, cogentin 1 mg po bid for EPS prophylaxis * Klonopin 1 mg po bid for mood control and anxiety control * Will restart Risperdal for disorganization if patient continues to be disorganized after Haldol has been optimized * Haldol/Ativan/Benadryl prns for agitation * Ambien 5 mg po HS prn: insomnia * medical consult Family involvement Follow up on labs Will monitor closely Pt was educated about risk/benefits and alternatives of medications, coping strategies (safety plan, suicide prevention), relapse prevention, importance of follow up with psychiatrist and therapist, stay away from drugs/alcohol/smoking Patient might benefit from ECT, pt has no POA, present moment patient lacks capacity to sign consent for ECT treatment Estimated Date of D/C: 07/22/18
--- NOTE | 2018-07-17 14:23 | PN ---
DATE: 07/16/2018 SUBJECTIVE: The patient is seen on 07/16/2018. The patient is comfortable. No distress. No new complaints. PHYSICAL EXAMINATION: GENERAL: The patient is walking. VITAL SIGNS: Temperature 97.3, heart rate 71, blood pressure 114/72, respirations 19. HEENT: Head and neck exam normal. No JVD. No thyromegaly. CHEST: Clear bilateral. CARDIAC: First and second sound normal. ABDOMEN: Soft, nontender. EXTREMITIES: No edema. NEUROLOGIC: Normal. IMPRESSION: 1. Schizophrenic or schizoaffective disorder. Continue psych treatment for now. 2. Hypothyroidism. Continue Synthroid 125 mcg, stable. 3. Hypertension, stable. Continue Cozaar 25 mg daily. 4. Continue current therapy. 5. The patient seems moving around. No new complaints. The patient should follow up as outpatient for thyroid evaluations, anemia evaluations, obesity and possible sleep apnea testing. He seems doing well. No other complaints. Julien Alvarado MD
--- NOTE | 2018-07-17 20:07 | CON ---
DATE: 07/14/2018 The patient is Yoel Subramanian, a 53-year-old male who came in to Psychiatry floor because of schizophrenia symptoms and I have been asked to see him for a medical consultation. HISTORY OF PRESENT ILLNESS: A 53-year-old male brought in from his residential facility because of change in mental status and inconsistent thirst and psychiatric who has schizophrenic disease. He was brought in. He does have a history of medical problems obesity, hypertension, thyroid disorder and also found to have hyponatremia in the hospital. PAST MEDICAL HISTORY: Multiple psychiatric admissions, he was recently admitted maybe 6 weeks or more for change in mental status with low platelets, which resolved and hypothyroidism. No other history, the patient poor historian and schizophrenic, cannot get much information from him. ALLERGIES: NO KNOWN ALLERGIES. SOCIAL HISTORY: He did have a history of drinking, but currently he is not drinking in the facility. REVIEW OF SYSTEMS: Cannot be obtained. MEDICATIONS: He takes in the hospital include Ambien 5 mg at bedtime, Ativan 2 mg every 6 hours p.r.n., Benadryl 50 mg p.o. every 6 hours p.r.n. and 50 IM every 6 hours p.r.n., Cogentin 1 mg b.i.d., Cozaar 25 mg p.o. daily, Haldol 5 mg every 6 hours p.r.n., 5 mg IM every 6 hours p.r.n., Klonopin 1 mg b.i.d., milk of magnesia, Synthroid 100 mcg p.o. daily and Tylenol 650 mg every 6 hours. PHYSICAL EXAMINATION GENERAL: The patient is seen. VITAL SIGNS: Temperature 98.2, heart rate 74, blood pressure 142/80, respirations 18, sat 99% on room air. HEENT: Head and neck exam normal. No JVD. No thyromegaly. CHEST: Clear bilaterally. CARDIAC: First sound and second sound normal. No murmur, rub, or gallop. ABDOMEN: Obese, nontender. EXTREMITIES: No edema. NEUROLOGICAL: Normal. LABORATORY DATA: Noted for hyponatremia, sodium 128, potassium 4.3, chloride 96, bicarb 21, BUN 12, creatinine 0.7, blood sugar 113. Liver function test is normal, TSH 7.63. CBC; white count 3.5, hemoglobin 12.4, hematocrit 36.7, platelets 199. Urine toxicology screen was negative. Serology RPR was negative. IMPRESSION AND PLAN: 1. Hyponatremia. The patient could be in multiple etiologies, but we will repeat lab in the morning, could be hypothyroid, could be psychiatric medications related or could be inappropriate antidiuretic hormone. We will consider repeating labs in the morning. 2. Hypothyroidism. We increased his medications to 125 mcg and we will see how he does. 3. Hypertension. Continue Cozaar 25 mg once a day. 4. Chronic anxiety and schizophrenic. I see the patient on Klonopin only and he seems stable. PLAN: Continue current therapy. We will follow up closely with you. Thank you for consultation. Julien Alvarado MD
[2018-07-18] MEDS: Levothyroxine 125 MCG TAB PO SCH (06:12)
--- NOTE | 2018-07-18 14:40 | PCM.PYCHPN ---
Psychiatric Progress Note - Psychiatric Progress Note Patient seen today, length of contact: 30min Patient Chief Complaint: "Tell me, would you give medication if it is not working?" Problems Identified/Issues Discussed: this copy writer attempted to discuss suicide/ homicide prevention, past psychiatric h/o, current psychiatric symptoms, medical problems, risk/benefits and alt ernatives of medications, medications compliance, coping strategies, substance abuse h/o, relapse prevention, importance of follow up with psychiatrist and therapist, discharge plan, but comprehension is very questionable. Medical Problems: Patient has multiple medical issues, patient was seen by Dr. Alvarado Diagnostic Results: 07/12/18 18:24 07/15/18 10:20 Lab Results 07/15/18 10:20: Sodium 136, Potassium 4.3, Chloride 98, Carbon Dioxide 31, Anion Gap 11, BUN 8, Creatinine 0.7 L, Est GFR ( Amer) > 60, Est GFR (Non-Af Amer) > 60, Random Glucose 116 H, Calcium 9.0 07/14/18 07:00: RPR Nonreactive 07/14/18 07:00: Free T4 1.22, TSH 3rd Generation 6.71 H 07/14/18 07:00: Fasting Glucose 81, Triglycerides 55, Cholesterol 161, LDL Cholesterol Direct 80, HDL Cholesterol 43 07/13/18 17:12: Valproic Acid < 10 L 07/12/18 22:25: Urine Opiates Screen Negative, Urine Methadone Screen Negative, Ur Barbiturates Screen Negative, Ur Phencyclidine Scrn Negative, Ur Amphetamines Screen Negative, U Benzodiazepines Scrn Negative, U Oth Cocaine Metabols Negative, U Cannabinoids Screen Negative 07/12/18 22:25: Urine Color Light yellow, Urine Appearance Clear, Urine pH 6.5, Ur Specific [place] 1.010, Urine Protein Negative, Urine Glucose (UA) Negative, Urine Ketones Negative, Urine Blood Negative, Urine Nitrate Negative, Urine Bilirubin Negative, Urine Urobilinogen 0.2, Ur Leukocyte Esterase Negative 07/12/18 18:24: Free T4 1.11, TSH 3rd Generation 7.63 H, Alcohol, Quantitative < 10 07/12/18 18:24: Salicylates < 1 L, Acetaminophen < 10.0 L 07/12/18 18:24: Sodium 128 L, Potassium 4.3, Chloride 96 L, Carbon Dioxide 31, Anion Gap 7 L, BUN 12, Creatinine 0.7 L, Est GFR ( Amer) > 60, Est GFR (Non-Af Amer) > 60, Random Glucose 106, Calcium 9.0, Magnesium 1.7, Total Bilirubin 0.6, AST 27, ALT 12, Alkaline Phosphatase 71, Total Creatine Kinase 114, Total Protein 7.9, Albumin 4.3, Globulin 3.6, Albumin/Globulin Ratio 1.2 07/12/18 18:24: WBC 3.5 L, RBC 3.82, Hgb 12.4 L, Hct 36.7 L, MCV 96.1, MCH 32.5, MCHC 33.8, RDW 12.6, Plt Count 199, MPV 9.6, Neut % (Auto) 58.0, Lymph % (Auto) 34.2, [place] % (Auto) 6.6 H, Eos % (Auto) 0.9 L, Baso % (Auto) 0.3, Lymph # (Auto) 1.2, [place] # (Auto) 0.2, Eos # (Auto) 0.0, Baso # (Auto) 0.01, Absolute Neuts (auto) 2.02 07/12/18 16:55: POC Glucose (mg/dL) 113 H Vital Signs Temp Pulse Resp BP Pulse Ox 07/15/18 06:37 98.4 F 60 18 122/75 07/14/18 16:50 80 150/75 07/14/18 08:03 98.2 F 74 18 142/88 07/13/18 16:47 72 149/99 H 07/13/18 14:25 97.5 F L 79 20 143/86 99 07/13/18 13:29 77 18 136/78 100 07/13/18 11:17 72 18 133/92 H 100 07/13/18 08:43 79 18 117/72 100 07/13/18 07:43 74 18 117/67 100 07/13/18 03:00 72 18 124/62 100 07/12/18 23:53 98.0 F 69 18 118/73 98 07/12/18 20:00 70 18 127/85 100 07/12/18 17:00 97.9 F 78 18 167/92 H 100 Temp Pulse Resp BP Pulse Ox 97.3 F L 71 19 114/72 99 07/16/18 07:00 07/16/18 10:13 07/16/18 07:00 07/16/18 10:13 07/13/18 14:25 DSM 5 Symptoms Update: patient is 53yo Male with long h/o mental illness, 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 Please see admission note for more detailed information As per nursing report ,on the unit patient has been disorganized, but more pleasant, still requires strong encouragement from staff to take his medications. Patient was seen today in his room, pt was asking about his medication, asked "would you give medication if it is not working?", then pt said that he does not feel medications are working, will be on this copy writer observation patient presented much better, less psychotic, meaningful conversation is possible at this point. Patient has episodes of mumbling, garbled speech but overall presented better. As per staff patient does not exhibit any aggression/agitation but does required constant redirection, encouragement to take medications. SW contacted [facility]([phone]) to obtain collateral information and spoke with staff member, Martha Boateng . pt was delusional that his parents still alive and living in [place]. As a result, patient wanted to visit his parents but were told redirected by staff at [facility]. Patient became upset and became verbally aggressive in which pt was yelling in the house and on the street. Patient has a hx of banging on surfaces and running away when he becomes upset but did exhibit such behavior prior to admission. pt's brother does not want pt to have ECT tx. Impression: Schizophrenia, treatment resistant Medication Change: Yes (Haloperidol increased) Medical Record Reviewed: Yes Mental Status Examination - Cognitive Function Orientation: Place, Situation (superficially) Attention: Poor Concentration: Poor Association: Loose Fund of Knowledge: Poor - Mood Mood: Anxious - Affect Affect: Broad - Formal Thought Process Formal Thought Process: Hallucinations, Delusions, Paranoia, Loosening of associations - Suicidal Ideation Suicidal Ideation: No - Homicidal Ideation Homicidal Ideation: No Goal/Treatment Plan - Goal/Treatment Plan Need for Continued Stay: Remain at risks for inpatient hospitalization, Severe depression anxiety, Discharge may exacerbated symptoms, Severe functional impairment Progress Toward Problem(s) and Goals/Treatment Plan: group, milieu and supportive tx * Haldol 10mg bid for disorganization, cogentin 1 mg po bid for EPS prophylaxis * Klonopin 1 mg po bid for mood control and anxiety control * Will restart Risperdal for disorganization if patient continues to be disorganized after Haldol has been optimized * Haldol/Ativan/Benadryl prns for agitation * Ambien 5 mg po HS prn: insomnia * medical consult Family involvement Follow up on labs Will monitor closely Pt was educated about risk/benefits and alternatives of medications, coping strategies (safety plan, suicide prevention), relapse prevention, importance of follow up with psychiatrist and therapist, stay away from drugs/alcohol/smoking Patient might benefit from ECT, pt has no POA, present moment patient lacks capacity to sign consent for ECT treatment Estimated Date of D/C: 07/22/18
--- NOTE | 2018-07-19 02:44 | PN ---
DATE: 07/17/2018 SUBJECTIVE: The patient was seen on 07/17/2018. The patient was seen in his room, getting out of his bed, talking, seems doing okay. No distress. He has no chest pain. No short of breath. PHYSICAL EXAMINATION: VITAL SIGNS: Temperature is 97.9, heart rate 74, blood pressure 112/76, respirations 18. HEAD AND NECK: Normal. No JVD. No thyromegaly. CHEST: Clear bilateral. CARDIAC: First sound and second sound normal. No murmur, rub or gallop. ABDOMEN: Soft, obese, nontender. EXTREMITIES: No edema. NEUROLOGIC: Neurologically normal. The patient is stable. PSYCHIATRIC: Psychiatric rodgers, the patient is discussed with him. He is more communicating now. He is talking about his father and he wants be a photocopying equipment repairer, a public safety police, then a physician, then a kind of irrelevant thoughts about his father and about the topic we spoke about. He seems more expressing now. He still does not make sense of relevant questions. IMPRESSION: 1. Schizophrenia. The patient is currently on medications, Klonopin 1 mg twice a day, Ativan, Cogentin, Benadryl as needed, and Haldol as needed. 2. Hypothyroidism. Continue Synthroid 125 mcg by mouth daily. 3. Hypertension. Continue Cozaar 25 mg by mouth daily. 4. Hyponatremia, resolved. PLAN: Continue current therapy. Follow up clinically. The patient will need followup as outpatient. Julien Alvarado MD
[2018-07-19] MEDS: Levothyroxine 125 MCG TAB PO SCH (07:04)
--- NOTE | 2018-07-19 13:54 | PCM.PYCHPN ---
Psychiatric Progress Note - Psychiatric Progress Note Patient seen today, length of contact: 30min Patient Chief Complaint: "I need to stay here for 2 weeks, if I will stay here for 2 weeks, my insurance will pay me...." Problems Identified/Issues Discussed: this marketing underwriter attempted to discuss suicide/ homicide prevention, past psychiatric h/o, current psychiatric symptoms, medical problems, risk/benefits and alternatives of medications, medications compliance, coping strategies, substance abuse h/o, relapse prevention, importance of follow up with psychiatrist and therapist, discharge plan, but comprehension is very questionable. Medical Problems: Patient has multiple medical issues, patient was seen by Dr. Alvarado Diagnostic Results: 07/12/18 18:24 07/15/18 10:20 Lab Results 07/15/18 10:20: Sodium 136, Potassium 4.3, Chloride 98, Carbon Dioxide 31, Anion Gap 11, BUN 8, Creatinine 0.7 L, Est GFR ( Amer) > 60, Est GFR (Non-Af Amer) > 60, Random Glucose 116 H, Calcium 9.0 07/14/18 07:00: RPR Nonreactive 07/14/18 07:00: Free T4 1.22, TSH 3rd Generation 6.71 H 07/14/18 07:00: Fasting Glucose 81, Triglycerides 55, Cholesterol 161, LDL Cholesterol Direct 80, HDL Cholesterol 43 07/13/18 17:12: Valproic Acid < 10 L 07/12/18 22:25: Urine Opiates Screen Negative, Urine Methadone Screen Negative, Ur Barbiturates Screen Negative, Ur Phencyclidine Scrn Negative, Ur Amphetamines Screen Negative, U Benzodiazepines Scrn Negative, U Oth Cocaine Metabols Negative, U Cannabinoids Screen Negative 07/12/18 22:25: Urine Color Light yellow, Urine Appearance Clear, Urine pH 6.5, Ur Specific [place] 1.010, Urine Protein Negative, Urine Glucose (UA) Negative, Urine Ketones Negative, Urine Blood Negative, Urine Nitrate Negative, Urine Bilirubin Negative, Urine Urobilinogen 0.2, Ur Leukocyte Esterase Negative 07/12/18 18:24: Free T4 1.11, TSH 3rd Generation 7.63 H, Alcohol, Quantitative < 10 07/12/18 18:24: Salicylates < 1 L, Acetaminophen < 10.0 L 07/12/18 18:24: Sodium 128 L, Potassium 4.3, Chloride 96 L, Carbon Dioxide 31, Anion Gap 7 L, BUN 12, Creatinine 0.7 L, Est GFR ( Amer) > 60, Est GFR (Non-Af Amer) > 60, Random Glucose 106, Calcium 9.0, Magnesium 1.7, Total Bilirubin 0.6, AST 27, ALT 12, Alkaline Phosphatase 71, Total Creatine Kinase 114, Total Protein 7.9, Albumin 4.3, Globulin 3.6, Albumin/Globulin Ratio 1.2 07/12/18 18:24: WBC 3.5 L, RBC 3.82, Hgb 12.4 L, Hct 36.7 L, MCV 96.1, MCH 32.5, MCHC 33.8, RDW 12.6, Plt Count 199, MPV 9.6, Neut % (Auto) 58.0, Lymph % (Auto) 34.2, [place] % (Auto) 6.6 H, Eos % (Auto) 0.9 L, Baso % (Auto) 0.3, Lymph # (Auto) 1.2, [place] # (Auto) 0.2, Eos # (Auto) 0.0, Baso # (Auto) 0.01, Absolute Neuts (auto) 2.02 07/12/18 16:55: POC Glucose (mg/dL) 113 H Vital Signs Temp Pulse Resp BP Pulse Ox 07/15/18 06:37 98.4 F 60 18 122/75 07/14/18 16:50 80 150/75 07/14/18 08:03 98.2 F 74 18 142/88 07/13/18 16:47 72 149/99 H 07/13/18 14:25 97.5 F L 79 20 143/86 99 07/13/18 13:29 77 18 136/78 100 07/13/18 11:17 72 18 133/92 H 100 07/13/18 08:43 79 18 117/72 100 07/13/18 07:43 74 18 117/67 100 07/13/18 03:00 72 18 124/62 100 07/12/18 23:53 98.0 F 69 18 118/73 98 07/12/18 20:00 70 18 127/85 100 07/12/18 17:00 97.9 F 78 18 167/92 H 100 Temp Pulse Resp BP Pulse Ox 97.3 F L 71 19 114/72 99 07/16/18 07:00 07/16/18 10:13 07/16/18 07:00 07/16/18 10:13 07/13/18 14:25 DSM 5 Symptoms Update: patient is 53yo Male with long h/o mental illness, treatment resistant schizophrenia vs schizoaffective disorder, pt was on clozaril, multiple psychiatric admissions in the past, most recently hospitalized at [facility] in 2016, who was brought to the emergency room by EMS after patient was acting bizarre at the boarding home. Please see admission note for more detailed information As per nursing report ,on the unit patient has been disorganized, but more pleasant, still requires strong encouragement from staff to take his medications. Patient was seen today at the day treatment area, patient presented to be calm, psychotic, patient impression is that she needs to stay in the hospital for 2 days and his insurance will pay him for behaving good (this is more organized v ersion of pt's statements). patient presented much better, less psychotic, meaningful conversation is possible for a few minutes only. Patient has episodes of mumbling, garbled speech but overall presented better. As per staff patient does not exhibit any aggression/agitation but does required constant redirection, encouragement to take medications. SW contacted [facility]([phone]) to obtain collateral information and spoke with staff member, Martha Boateng . pt was delusional that his parents still alive and living in [place]. As a result, patient wanted to visit his parents but [facility] Patient became upset and became verbally aggressive in which pt was yelling in the house and on the street. Patient has a hx of banging on surfaces and running away when he becomes upset but did exhibit such behavior prior to admission. pt's brother does not want pt to have ECT tx. this marketing underwriter requested for pt's [facility] to visit pt and give this marketing underwriter feedback. Impression: Schizophrenia, treatment resistant Medication Change: Yes (Haloperidol increased, Cogentin increased) Medical Record Reviewed: Yes Mental Status Examination - Cognitive Function Orientation: Place, Situation (superficially) Attention: Poor (Somewhat better) Concentration: Poor (Some improvement) Association: Loose Fund of Knowledge: Poor - Mood Mood: Anxious - Affect Affect: Broad - Formal Thought Process Formal Thought Process: Hallucinations, Delusions, Paranoia, Loosening of associations - Suicidal Ideation Suicidal Ideation: No - Homicidal Ideation Homicidal Ideation: No Goal/Treatment Plan - Goal/Treatment Plan Need for Continued Stay: Remain at risks for inpatient hospitalization, Severe depression anxiety, Discharge may exacerbated symptoms, Severe functional impairment Progress Toward Problem(s) and Goals/Treatment Plan: group, milieu and supportive tx * Haldol 10mg daily and 15 mg at the nighttime for disorganization, cogentin 1 mg po daily and 2 mg at the nighttime for EPS prophylaxis * Klonopin 1 mg po bid for mood control and anxiety control * Will restart Risperdal for disorganization if patient continues to be disor ganized after Haldol has been optimized * Haldol/Ativan/Benadryl prns for agitation * Ambien 5 mg po HS prn: insomnia * medical consult Family involvement Follow up on labs Will monitor closely Pt was educated about risk/benefits and alternatives of medications, coping strategies (safety plan, suicide prevention), relapse prevention, importance of follow up with psychiatrist and therapist, stay away from drugs/alcohol/smoking Patient might benefit from ECT, pt has no POA, present moment patient lacks capacity to sign consent for ECT treatment Estimated Date of D/C: 07/22/18
[2018-07-20] MEDS: Levothyroxine 125 MCG TAB PO SCH (07:09)
--- NOTE | 2018-07-20 13:59 | PCM.PYCHPN ---
Psychiatric Progress Note - Psychiatric Progress Note Patient seen today, length of contact: 30min Patient Chief Complaint: "I am okay..." Problems Identified/Issues Discussed: this health technical writer attempted to discuss suicide/ homicide prevention, past psychiatric h/o, current psychiatric symptoms, medical problems, risk/benefits and alternatives of medications, medications compliance, coping strategies, substance abuse h/o, relapse prevention, importance of follow up with psych iatrist and therapist, discharge plan, but comprehension is very questionable. Medical Problems: Patient has multiple medical issues, patient was seen by Dr. Alvarado Diagnostic Results: 07/12/18 18:24 07/15/18 10:20 Lab Results 07/15/18 10:20: Sodium 136, Potassium 4.3, Chloride 98, Carbon Dioxide 31, Anion Gap 11, BUN 8, Creatinine 0.7 L, Est GFR ( Amer) > 60, Est GFR (Non-Af Amer) > 60, Random Glucose 116 H, Calcium 9.0 07/14/18 07:00: RPR Nonreactive 07/14/18 07:00: Free T4 1.22, TSH 3rd Generation 6.71 H 07/14/18 07:00: Fasting Glucose 81, Triglycerides 55, Cholesterol 161, LDL Cholesterol Direct 80, HDL Cholesterol 43 07/13/18 17:12: Valproic Acid < 10 L 07/12/18 22:25: Urine Opiates Screen Negative, Urine Methadone Screen Negative, Ur Barbiturates Screen Negative, Ur Phencyclidine Scrn Negative, Ur Amphetamines Screen Negative, U Benzodiazepines Scrn Negative, U Oth Cocaine Metabols Negative, U Cannabinoids Screen Negative 07/12/18 22:25: Urine Color Light yellow, Urine Appearance Clear, Urine pH 6.5, Ur Specific [place] 1.010, Urine Protein Negative, Urine Glucose (UA) Negative, Urine Ketones Negative, Urine Blood Negative, Urine Nitrate Negative, Urine Bilirubin Negative, Urine Urobilinogen 0.2, Ur Leukocyte Esterase Negative 07/12/18 18:24: Free T4 1.11, TSH 3rd Generation 7.63 H, Alcohol, Quantitative < 10 07/12/18 18:24: Salicylates < 1 L, Acetaminophen < 10.0 L 07/12/18 18:24: Sodium 128 L, Potassium 4.3, Chloride 96 L, Carbon Dioxide 31, Anion Gap 7 L, BUN 12, Creatinine 0.7 L, Est GFR ( Amer) > 60, Est GFR (Non-Af Amer) > 60, Random Glucose 106, Calcium 9.0, Magnesium 1.7, Total Bilirubin 0.6, AST 27, ALT 12, Alkaline Phosphatase 71, Total Creatine Kinase 114, Total Protein 7.9, Albumin 4.3, Globulin 3.6, Albumin/Globulin Ratio 1.2 07/12/18 18:24: WBC 3.5 L, RBC 3.82, Hgb 12.4 L, Hct 36.7 L, MCV 96.1, MCH 32.5, MCHC 33.8, RDW 12.6, Plt Count 199, MPV 9.6, Neut % (Auto) 58.0, Lymph % (Auto) 34.2, [place] % (Auto) 6.6 H, Eos % (Auto) 0.9 L, Baso % (Auto) 0.3, Lymph # (Auto) 1.2, [place] # (Auto) 0.2, Eos # (Auto) 0.0, Baso # (Auto) 0.01, Absolute Neuts (auto) 2.02 07/12/18 16:55: POC Glucose (mg/dL) 113 H Vital Signs Temp Pulse Resp BP Pulse Ox 07/15/18 06:37 98.4 F 60 18 122/75 07/14/18 16:50 80 150/75 07/14/18 08:03 98.2 F 74 18 142/88 07/13/18 16:47 72 149/99 H 07/13/18 14:25 97.5 F L 79 20 143/86 99 07/13/18 13:29 77 18 136/78 100 07/13/18 11:17 72 18 133/92 H 100 07/13/18 08:43 79 18 117/72 100 07/13/18 07:43 74 18 117/67 100 07/13/18 03:00 72 18 124/62 100 07/12/18 23:53 98.0 F 69 18 118/73 98 07/12/18 20:00 70 18 127/85 100 07/12/18 17:00 97.9 F 78 18 167/92 H 100 Temp Pulse Resp BP Pulse Ox 97.3 F L 71 19 114/72 99 07/16/18 07:00 07/16/18 10:13 07/16/18 07:00 07/16/18 10:13 07/13/18 14:25 DSM 5 Symptoms Update: patient is 53yo Male with long h/o mental illness, treatment resistant schizophrenia vs schizoaffective disorder, pt was on clozaril, multiple ps ychiatric admissions in the past, most recently hospitalized at [facility] in 2016, who was brought to the emergency room by EMS after patient was acting bizarre at the boarding home. Please see admission note for more detailed information As per nursing report ,on the unit patient has been disorganized, but more pleasant, still requires strong encouragement from staff to take his medications. Patient was seen today at the day treatment area, patient presented to be calm, patient presented much better, less psychotic, meaningful conversation is possible for a few minutes only. Patient has episodes of mumbling, garbled speech but overall presented better. As per staff patient does not exhibit any aggression/agitation but does required constant redirection, encouragement to take medications. SW contacted [facility]([phone]) to obtain collateral information and spoke with staff member, Martha Boateng . pt was delusional that his parents still alive and living in [place]. As a result, patient wanted to visit his parents but were [facility] staff at [facility]. Patient became upset and became verbally aggressive in which pt was yelling in the house and on the street. Patient has a hx of banging on surfaces and running away when he becomes upset but did exhibit such behavior prior to admission. pt's brother does not want pt to have ECT tx. this health technical writer requested for pt's [facility] to visit pt and give this health technical writer feedback. Impression: Schizophrenia, treatment resistant Medication Change: Yes (Haloperidol increased, Cogentin increased) Medical Record Reviewed: Yes Mental Status Examination - Cognitive Function Orientation: Place, Situation (superficially) Attention: Poor (Somewhat better) Concentration: Poor (Some improvement) Association: Loose Fund of Knowledge: Poor - Mood Mood: Anxious - Affect Affect: Broad - Formal Thought Process Formal Thought Process: Hallucinations, Delusions, Paranoia, Loosening of associations - Suicidal Ideation Suicidal Ideation: No - Homicidal Ideation Homicidal Ideation: No Goal/Treatment Plan - Goal/Treatment Plan Need for Continued Stay: Remain at risks for inpatient hospitalization, Severe depression anxiety, Discharge may exacerbated symptoms, Severe functional impairment Progress Toward Problem(s) and Goals/Treatment Plan: group, milieu and supportive tx * Haldol 10mg daily and 15 mg at the nighttime for disorganization, cogentin 1 mg po daily and 2 mg at the nighttime for EPS prophylaxis * Klonopin 1 mg po bid for mood control and anxiety control * Will restart Risperdal for disorganization if patient continues to be disorganized after Haldol has been optimized * Haldol/Ativan/Benadryl prns for agitation * Ambien 5 mg po HS prn: insomnia * medical consult Family involvement Follow up on labs Will monitor closely Pt was educated about risk/benefits and alternatives of medications, coping strategies (safety plan, suicide prevention), relapse prevention, importance of follow up with psychiatrist and therapist, stay away from drugs/alcohol/smoking Patient might benefit from ECT, pt has no POA, present moment patient lacks capacity to sign consent for ECT treatment Estimated Date of D/C: 07/22/18
[2018-07-21] MEDS: Levothyroxine 125 MCG TAB PO SCH (06:44)
--- NOTE | 2018-07-21 11:42 | PCM.PYCHPN ---
Psychiatric Progress Note - Psychiatric Progress Note Patient seen today, length of contact: 30min Patient Chief Complaint: "I feel very good" Problems Identified/Issues Discussed: this financial underwriter attempted to discuss suicide/ homicide prevention, past psychiatric h/o, current psychiatric symptoms, medical problems, risk/benefits and alternatives of medications, medications compliance, coping strategies, substance abuse h/o, relapse prevention, importance of follow up with p sychiatrist and therapist, discharge plan, but comprehension is very questionable. Medical Problems: Patient has multiple medical issues, patient was seen by Dr. Alvarado Diagnostic Results: 07/12/18 18:24 07/15/18 10:20 Lab Results 07/15/18 10:20: Sodium 136, Potassium 4.3, Chloride 98, Carbon Dioxide 31, Anion Gap 11, BUN 8, Creatinine 0.7 L, Est GFR ( Amer) > 60, Est GFR (Non-Af Amer) > 60, Random Glucose 116 H, Calcium 9.0 07/14/18 07:00: RPR Nonreactive 07/14/18 07:00: Free T4 1.22, TSH 3rd Generation 6.71 H 07/14/18 07:00: Fasting Glucose 81, Triglycerides 55, Cholesterol 161, LDL Cholesterol Direct 80, HDL Cholesterol 43 07/13/18 17:12: Valproic Acid < 10 L 07/12/18 22:25: Urine Opiates Screen Negative, Urine Methadone Screen Negative, Ur Barbiturates Screen Negative, Ur Phencyclidine Scrn Negative, Ur Amphetamines Screen Negative, U Benzodiazepines Scrn Negative, U Oth Cocaine Metabols Negative, U Cannabinoids Screen Negative 07/12/18 22:25: Urine Color Light yellow, Urine Appearance Clear, Urine pH 6.5, Ur Specific [place] 1.010, Urine Protein Negative, Urine Glucose (UA) Negative, Urine Ketones Negative, Urine Blood Negative, Urine Nitrate Negative, Urine Bilirubin Negative, Urine Urobilinogen 0.2, Ur Leukocyte Esterase Negative 07/12/18 18:24: Free T4 1.11, TSH 3rd Generation 7.63 H, Alcohol, Quantitative < 10 07/12/18 18:24: Salicylates < 1 L, Acetaminophen < 10.0 L 07/12/18 18:24: Sodium 128 L, Potassium 4.3, Chloride 96 L, Carbon Dioxide 31, Anion Gap 7 L, BUN 12, Creatinine 0.7 L, Est GFR ( Amer) > 60, Est GFR (Non-Af Amer) > 60, Random Glucose 106, Calcium 9.0, Magnesium 1.7, Total Bilirubin 0.6, AST 27, ALT 12, Alkaline Phosphatase 71, Total Creatine Kinase 114, Total Protein 7.9, Albumin 4.3, Globulin 3.6, Albumin/Globulin Ratio 1.2 07/12/18 18:24: WBC 3.5 L, RBC 3.82, Hgb 12.4 L, Hct 36.7 L, MCV 96.1, MCH 32.5, MCHC 33.8, RDW 12.6, Plt Count 199, MPV 9.6, Neut % (Auto) 58.0, Lymph % (Auto) 34.2, [place] % (Auto) 6.6 H, Eos % (Auto) 0.9 L, Baso % (Auto) 0.3, Lymph # (Auto) 1.2, [place] # (Auto) 0.2, Eos # (Auto) 0.0, Baso # (Auto) 0.01, Absolute Neuts (auto) 2.02 07/12/18 16:55: POC Glucose (mg/dL) 113 H Vital Signs Temp Pulse Resp BP Pulse Ox 07/15/18 06:37 98.4 F 60 18 122/75 07/14/18 16:50 80 150/75 07/14/18 08:03 98.2 F 74 18 142/88 07/13/18 16:47 72 149/99 H 07/13/18 14:25 97.5 F L 79 20 143/86 99 07/13/18 13:29 77 18 136/78 100 07/13/18 11:17 72 18 133/92 H 100 07/13/18 08:43 79 18 117/72 100 07/13/18 07:43 74 18 117/67 100 07/13/18 03:00 72 18 124/62 100 07/12/18 23:53 98.0 F 69 18 118/73 98 07/12/18 20:00 70 18 127/85 100 07/12/18 17:00 97.9 F 78 18 167/92 H 100 Temp Pulse Resp BP Pulse Ox 97.3 F L 71 19 114/72 99 07/16/18 07:00 07/16/18 10:13 07/16/18 07:00 07/16/18 10:13 07/13/18 14:25 DSM 5 Symptoms Update: patient is 53yo Male with long h/o mental illness, treatment resistant schizophrenia vs schizoaffective disorder, pt was on clozaril, multiple psychiatric admissions in the past, most recently hospitalized at [facility] in 2016, who was brought to the emergency room by EMS after patient was acting bizarre at the boarding home. Please see admission note for more detailed information As per nursing report ,on the unit patient has been disorganized, but more pleasant, patient is compliant with her medications, seems to be more pleasant. Patient was seen today in his room, patient presented to be calm, patient presented much better, less psychotic, meaningful conversation is possible for a few minutes only. Patient has episodes of mumbling, garbled speech but overall presented better. As per staff patient does not exhibit any aggression/agitation but does required constant redirection, encouragement to take medications. [facility][phone][facility] to obtain collateral information and spoke with staff member, Martha Boateng . pt was delusional that his parents still alive and living in [place]. As a result, patient wanted to visit his parents but were told redirected by staff at snf. Patient became upset and became verbally aggressive in which pt was yelling in the house and on the street. Patient has a hx of banging on surfaces and running away when he becomes upset but did exhibit such behavior prior to admission. pt's brother does not want pt to have ECT tx. this financial underwriter requested for pt's snf to visit pt and give this financial underwriter feedback. Impression: Schizophrenia, treatment resistant Medication Change: No Medical Record Reviewed: Yes Mental Status Examination - Cognitive Function Orientation: Place, Situation (superficially) Attention: Poor (Somewhat better) Concentration: Poor (Some improvement) Association: Loose Fund of Knowledge: Poor - Mood Mood: Anxious (Improved) - Affect Affect: Broad - Formal Thought Process Formal Thought Process: Hallucinations (Denied today), Delusions (Chronic), Paranoia (Better), Loosening of associations (Prominent) - Suicidal Ideation Suicidal Ideation: No - Homicidal Ideation Homicidal Ideation: No Goal/Treatment Plan - Goal/Treatment Plan Need for Continued Stay: Remain at risks for inpatient hospitalization, Severe depression anxiety, Discharge may exacerbated symptoms, Severe functional impairment Progress Toward Problem(s) and Goals/Treatment Plan: group, milieu and supportive tx * Haldol 10mg daily and 15 mg at the nighttime for disorganization, cogentin 1 mg po daily and 2 mg at the nighttime for EPS prophylaxis * Klonopin 1 mg po bid for mood control and anxiety control * Will restart Risperdal for disorganization if patient continues to be disorganized after Haldol has been optimized * Haldol/Ativan/Benadryl prns for agitation * Ambien 5 mg po HS prn: insomnia * medical consult Family involvement Follow up on labs Will monitor closely Pt was educated about risk/benefits and alternatives of medications, coping strategies (safety plan, suicide prevention), relapse prevention, importance of follow up with psychiatrist and therapist, stay away from drugs/alcohol/smoking Patient might benefit from ECT, pt has no POA, present moment patient lacks capacity to sign consent for ECT treatment Estimated Date of D/C: 07/22/18
[2018-07-22] MEDS: Levothyroxine 125 MCG TAB PO SCH (06:33)
--- NOTE | 2018-07-22 15:15 | PCM.PYCHPN ---
Psychiatric Progress Note - Psychiatric Progress Note Patient seen today, length of contact: 30min Patient Chief Complaint: "I feel very good" Problems Identified/Issues Discussed: this senior mortgage underwriter attempted to discuss suicide/ homicide prevention, past psychiatric h/o, current psychiatric symptoms, medical problems, risk/benefits and alternatives of medications, medications compliance, coping strategies, substance abuse h/o, relapse prevention, importance of follow up with p sychiatrist and therapist, discharge plan, but comprehension is very questionable. Medical Problems: Patient has multiple medical issues, patient was seen by Dr. Alvarado Diagnostic Results: 07/12/18 18:24 07/15/18 10:20 Lab Results 07/15/18 10:20: Sodium 136, Potassium 4.3, Chloride 98, Carbon Dioxide 31, Anion Gap 11, BUN 8, Creatinine 0.7 L, Est GFR ( Amer) > 60, Est GFR (Non-Af Amer) > 60, Random Glucose 116 H, Calcium 9.0 07/14/18 07:00: RPR Nonreactive 07/14/18 07:00: Free T4 1.22, TSH 3rd Generation 6.71 H 07/14/18 07:00: Fasting Glucose 81, Triglycerides 55, Cholesterol 161, LDL Cholesterol Direct 80, HDL Cholesterol 43 07/13/18 17:12: Valproic Acid < 10 L 07/12/18 22:25: Urine Opiates Screen Negative, Urine Methadone Screen Negative, Ur Barbiturates Screen Negative, Ur Phencyclidine Scrn Negative, Ur Amphetamines Screen Negative, U Benzodiazepines Scrn Negative, U Oth Cocaine Metabols Negative, U Cannabinoids Screen Negative 07/12/18 22:25: Urine Color Light yellow, Urine Appearance Clear, Urine pH 6.5, Ur Specific [place] 1.010, Urine Protein Negative, Urine Glucose (UA) Negative, Urine Ketones Negative, Urine Blood Negative, Urine Nitrate Negative, Urine Bilirubin Negative, Urine Urobilinogen 0.2, Ur Leukocyte Esterase Negative 07/12/18 18:24: Free T4 1.11, TSH 3rd Generation 7.63 H, Alcohol, Quantitative < 10 07/12/18 18:24: Salicylates < 1 L, Acetaminophen < 10.0 L 07/12/18 18:24: Sodium 128 L, Potassium 4.3, Chloride 96 L, Carbon Dioxide 31, Anion Gap 7 L, BUN 12, Creatinine 0.7 L, Est GFR ( Amer) > 60, Est GFR (Non-Af Amer) > 60, Random Glucose 106, Calcium 9.0, Magnesium 1.7, Total Bilirubin 0.6, AST 27, ALT 12, Alkaline Phosphatase 71, Total Creatine Kinase 114, Total Protein 7.9, Albumin 4.3, Globulin 3.6, Albumin/Globulin Ratio 1.2 07/12/18 18:24: WBC 3.5 L, RBC 3.82, Hgb 12.4 L, Hct 36.7 L, MCV 96.1, MCH 32.5, MCHC 33.8, RDW 12.6, Plt Count 199, MPV 9.6, Neut % (Auto) 58.0, Lymph % (Auto) 34.2, [place] % (Auto) 6.6 H, Eos % (Auto) 0.9 L, Baso % (Auto) 0.3, Lymph # (Auto) 1.2, [place] # (Auto) 0.2, Eos # (Auto) 0.0, Baso # (Auto) 0.01, Absolute Neuts (auto) 2.02 07/12/18 16:55: POC Glucose (mg/dL) 113 H Vital Signs Temp Pulse Resp BP Pulse Ox 07/15/18 06:37 98.4 F 60 18 122/75 07/14/18 16:50 80 150/75 07/14/18 08:03 98.2 F 74 18 142/88 07/13/18 16:47 72 149/99 H 07/13/18 14:25 97.5 F L 79 20 143/86 99 07/13/18 13:29 77 18 136/78 100 07/13/18 11:17 72 18 133/92 H 100 07/13/18 08:43 79 18 117/72 100 07/13/18 07:43 74 18 117/67 100 07/13/18 03:00 72 18 124/62 100 07/12/18 23:53 98.0 F 69 18 118/73 98 07/12/18 20:00 70 18 127/85 100 07/12/18 17:00 97.9 F 78 18 167/92 H 100 Temp Pulse Resp BP Pulse Ox 97.3 F L 71 19 114/72 99 07/16/18 07:00 07/16/18 10:13 07/16/18 07:00 07/16/18 10:13 07/13/18 14:25 DSM 5 Symptoms Update: patient is 53yo Male with long h/o mental illness, treatment resistant schizophrenia vs schizoaffective disorder, pt was on clozaril, multiple psychiatric admissions in the past, most recently hospitalized at [facility] [place], who was brought to the emergency room by EMS after patient was acting bizarre at the boarding home. Please see admission note for more detailed information As per nursing report ,on the unit patient has been disorganized, but more pleasant, patient is compliant with her medications, seems to be more pleasant. 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 Patient has episodes of mumbling, garbled speech but overall presented better. As per staff patient does not exhibit any aggression/agitation but does required constant redirection, encouragement to take medications. SW contacted [facility]([phone]) as per Bree Biswas, pt was seen by staff member, presented not well, pt pr esented to be paranoid, agitated, [facility] feels that pt is not ready for discharge. will hold d/c today. Impression: Schizophrenia, treatment resistant Medication Change: Yes (Haloperidol was increased to 30 mg daily) Medical Record Reviewed: Yes Mental Status Examination - Cognitive Function Orientation: Place, Situation (superficially) Memory: Impaired Attention: Poor (Somewhat better) Concentration: Poor (Some improvement) Association: Loose Fund of Knowledge: Poor - Mood Mood: Anxious (Improved) - Affect Affect: Broad - Formal Thought Process Formal Thought Process: Hallucinations (Denied today), Delusions (Chronic), Paranoia (Better), Loosening of associations (Prominent) - Suicidal Ideation Suicidal Ideation: No - Homicidal Ideation Homicidal Ideation: No Goal/Treatment Plan - Goal/Treatment Plan Need for Continued Stay: Remain at risks for inpatient hospitalization, Severe depression anxiety, Discharge may exacerbated symptoms, Severe functional impairment Progress Toward Problem(s) and Goals/Treatment Plan: group, milieu and supportive tx * Haldol 10mg po bid and hs, cogentin 1 mg po daily and 2 mg at the nighttime for EPS prophylaxis * Klonopin 1 mg po bid for mood control and anxiety control * Will restart Risperdal for disorganization if patient continues to be disorganized after Haldol has been optimized * Haldol/Ativan/Benadryl prns for agitation * Ambien 5 mg po HS prn: insomnia * medical consult Family involvement Follow up on labs Will monitor closely Pt was educated about risk/benefits and alternatives of medications, coping strategies (safety plan, suicide prevention), relapse prevention, importance of follow up with psychiatrist and therapist, stay away from drugs/alcohol/smoking Patient might benefit from ECT, pt has no POA, present moment patient lacks capacity to sign consent for ECT treatment Estimated Date of D/C: 07/24/18
[2018-07-23] MEDS: Levothyroxine 125 MCG TAB PO SCH (06:27)
[2018-07-23 07:23] VITALS: O2SAT 97
--- NOTE | 2018-07-23 13:16 | PN ---
DATE: 07/22/2018 SUBJECTIVE: The patient is still talking about being a officer lieutenant, training, nonsense, but there is not any suicidal or homicidal thoughts about him. He is stable. Otherwise, no aggression. PHYSICAL EXAMINATION: VITAL SIGNS: Temperature 97.9, heart rate 60, blood pressure 108/72, respirations 18. HEAD AND NECK: Exam normal. No JVD. No thyromegaly. CHEST: Clear bilateral. CARDIAC: First sound and second sound normal. No murmur, rub, or gallop. ABDOMEN: Obese, nontender. EXTREMITIES: No edema. NEUROLOGIC: Normal. IMPRESSION AND PLAN: 1. Schizophrenia, schizoaffective disorder. We will continue current therapy. The patient is right now getting Haldol 10 mg b.i.d. and 10 mg every night at bedtime, which is doing very well for him plus 5 mg every 6 hours p.r.n. In addition, Ambien for sleep and Klonopin 1 mg b.i.d. 2. Hypothyroidism, stable. Continue Synthroid 125 mcg. The patient seems stable, otherwise, medically stable. His hypertension is stable on Cozaar 25 mg p.o. daily. Julien Alvarado MD
--- NOTE | 2018-07-23 14:59 | PCM.PYCHPN ---
Psychiatric Progress Note - Psychiatric Progress Note Patient seen today, length of contact: 30min Patient Chief Complaint: "I feel very good" Problems Identified/Issues Discussed: this personal lines underwriter attempted to discuss suicide/ homicide prevention, past psychiatric h/o, current psychiatric symptoms, medical problems, risk/benefits and alternatives of medications, medications compliance, coping strategies, substance abuse h/o, relapse prevention, importance of follow up with p sychiatrist and therapist, discharge plan, but comprehension is very questionable. Medical Problems: Patient has multiple medical issues, patient was seen by Dr. Alvarado Diagnostic Results: 07/12/18 18:24 07/15/18 10:20 Lab Results 07/15/18 10:20: Sodium 136, Potassium 4.3, Chloride 98, Carbon Dioxide 31, Anion Gap 11, BUN 8, Creatinine 0.7 L, Est GFR ( Amer) > 60, Est GFR (Non-Af Amer) > 60, Random Glucose 116 H, Calcium 9.0 07/14/18 07:00: RPR Nonreactive 07/14/18 07:00: Free T4 1.22, TSH 3rd Generation 6.71 H 07/14/18 07:00: Fasting Glucose 81, Triglycerides 55, Cholesterol 161, LDL Cholesterol Direct 80, HDL Cholesterol 43 07/13/18 17:12: Valproic Acid < 10 L 07/12/18 22:25: Urine Opiates Screen Negative, Urine Methadone Screen Negative, Ur Barbiturates Screen Negative, Ur Phencyclidine Scrn Negative, Ur Amphetamines Screen Negative, U Benzodiazepines Scrn Negative, U Oth Cocaine Metabols Negative, U Cannabinoids Screen Negative 07/12/18 22:25: Urine Color Light yellow, Urine Appearance Clear, Urine pH 6.5, Ur Specific [place] 1.010, Urine Protein Negative, Urine Glucose (UA) Negative, Urine Ketones Negative, Urine Blood Negative, Urine Nitrate Negative, Urine Bilirubin Negative, Urine Urobilinogen 0.2, Ur Leukocyte Esterase Negative 07/12/18 18:24: Free T4 1.11, TSH 3rd Generation 7.63 H, Alcohol, Quantitative < 10 07/12/18 18:24: Salicylates < 1 L, Acetaminophen < 10.0 L 07/12/18 18:24: Sodium 128 L, Potassium 4.3, Chloride 96 L, Carbon Dioxide 31, Anion Gap 7 L, BUN 12, Creatinine 0.7 L, Est GFR ( Amer) > 60, Est GFR (Non-Af Amer) > 60, Random Glucose 106, Calcium 9.0, Magnesium 1.7, Total Bilirubin 0.6, AST 27, ALT 12, Alkaline Phosphatase 71, Total Creatine Kinase 114, Total Protein 7.9, Albumin 4.3, Globulin 3.6, Albumin/Globulin Ratio 1.2 07/12/18 18:24: WBC 3.5 L, RBC 3.82, Hgb 12.4 L, Hct 36.7 L, MCV 96.1, MCH 32.5, MCHC 33.8, RDW 12.6, Plt Count 199, MPV 9.6, Neut % (Auto) 58.0, Lymph % (Auto) 34.2, [place] % (Auto) 6.6 H, Eos % (Auto) 0.9 L, Baso % (Auto) 0.3, Lymph # (Auto) 1.2, [place] # (Auto) 0.2, Eos # (Auto) 0.0, Baso # (Auto) 0.01, Absolute Neuts (auto) 2.02 07/12/18 16:55: POC Glucose (mg/dL) 113 H Vital Signs Temp Pulse Resp BP Pulse Ox 07/15/18 06:37 98.4 F 60 18 122/75 07/14/18 16:50 80 150/75 07/14/18 08:03 98.2 F 74 18 142/88 07/13/18 16:47 72 149/99 H 07/13/18 14:25 97.5 F L 79 20 143/86 99 07/13/18 13:29 77 18 136/78 100 07/13/18 11:17 72 18 133/92 H 100 07/13/18 08:43 79 18 117/72 100 07/13/18 07:43 74 18 117/67 100 07/13/18 03:00 72 18 124/62 100 07/12/18 23:53 98.0 F 69 18 118/73 98 07/12/18 20:00 70 18 127/85 100 07/12/18 17:00 97.9 F 78 18 167/92 H 100 Temp Pulse Resp BP Pulse Ox 97.3 F L 71 19 114/72 99 07/16/18 07:00 07/16/18 10:13 07/16/18 07:00 07/16/18 10:13 07/13/18 14:25 DSM 5 Symptoms Update: patient is 53yo Male with long h/o mental illness, treatment resistant schizophrenia vs schizoaffective disorder, pt was on clozaril, multiple psychiatric admissions in the past, most recently hospitalized at [facility] in 2016, who was brought to the emergency room by EMS after patient was acting bizarre at the boarding home. Please see admission note for more detailed information As per nursing report ,on the unit patient has been disorganized, but more pleasant, patient is compliant with her medications, seems to be more pleasant. 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 Patient has episodes of mumbling, garbled speech but overall presented better. As per staff patient does not exhibit any aggression/agitation but does required constant redirection, encouragement to take medications. SW contacted [facility]([phone]) as per Bree Biswas, pt was seen by staff member, presented not well, pt presented to be paranoid, agitated, [facility] feels that pt is not ready for discharge. Discharge was postponed to 07/25/18. Impression: Schizophrenia, treatment resistant Medication Change: Yes (Haloperidol was increased to 30 mg daily) Medical Record Reviewed: Yes Mental Status Examination - Cognitive Function Orientation: Place, Situation (superficially) Memory: Impaired Attention: Poor (Somewhat better) Concentration: Poor (Some improvement) Association: Loose Fund of Knowledge: Poor - Mood Mood: Anxious (Improved) - Affect Affect: Broad - Formal Thought Process Formal Thought Process: Hallucinations (Denied today), Delusions (Chronic), Paranoia (Better), Loosening of associations (Prominent) - Suicidal Ideation Suicidal Ideation: No - Homicidal Ideation Homicidal Ideation: No Goal/Treatment Plan - Goal/Treatment Plan Need for Continued Stay: Remain at risks for inpatient hospitalization, Severe depression anxiety, Discharge may exacerbated symptoms, Severe functional impairment Progress Toward Problem(s) and Goals/Treatment Plan: group, milieu and supportive tx * Haldol 10mg po bid and hs, cogentin 1 mg po daily and 2 mg at the nighttime for EPS prophylaxis * Klonopin 1 mg po bid for mood control and anxiety control * Will restart Risperdal for disorganization if patient continues to be disorganized after Haldol has been optimized * Haldol/Ativan/Benadryl prns for agitation * Ambien 5 mg po HS prn: insomnia * medical consult Family involvement Follow up on labs Will monitor closely Pt was educated about risk/benefits and alternatives of medications, coping strategies (safety plan, suicide prevention), relapse prevention, importance of follow up with psychiatrist and therapist, stay away from drugs/alcohol/smoking Patient might benefit from ECT, pt has no POA, present moment patient lacks capacity to sign consent for ECT treatment Estimated Date of D/C: 07/25/18
[2018-07-24] MEDS: Levothyroxine 125 MCG TAB PO SCH (06:26)
--- NOTE | 2018-07-24 15:57 | PCM.PYCHPN ---
Psychiatric Progress Note - Psychiatric Progress Note Patient seen today, length of contact: 30min Patient Chief Complaint: "they told me a pill, there's a small bit of illness in it. I'm almost a doctor. He got ran over 10 horses. Every single horse I had did the same things. The horse did not recognize everything." Problems Identified/Issues Discussed: this handbook writer attempted to discuss suicide/ homicide prevention, past psychiatric h/o, current psychiatric symptoms, medical problems, risk/benefits and alternatives of medications, medications compliance, coping strategies, substance abuse h/o, relapse prevention, importance of follow up with psychiatrist and therapist, discharge plan, but comprehension is very questionable. Medical Problems: Patient has multiple medical issues, patient was seen by Dr. Alvarado Diagnostic Results: 07/12/18 18:24 07/15/18 10:20 Lab Results 07/15/18 10:20: Sodium 136, Potassium 4.3, Chloride 98, Carbon Dioxide 31, Anion Gap 11, BUN 8, Creatinine 0.7 L, Est GFR ( Amer) > 60, Est GFR (Non-Af Amer) > 60, Random Glucose 116 H, Calcium 9.0 07/14/18 07:00: RPR Nonreactive 07/14/18 07:00: Free T4 1.22, TSH 3rd Generation 6.71 H 07/14/18 07:00: Fasting Glucose 81, Triglycerides 55, Cholesterol 161, LDL Cholesterol Direct 80, HDL Cholesterol 43 07/13/18 17:12: Valproic Acid < 10 L 07/12/18 22:25: Urine Opiates Screen Negative, Urine Methadone Screen Negative, Ur Barbiturates Screen Negative, Ur Phencyclidine Scrn Negative, Ur Amphetamines Screen Negative, U Benzodiazepines Scrn Negative, U Oth Cocaine Metabols Ne gative, U Cannabinoids Screen Negative 07/12/18 22:25: Urine Color Light yellow, Urine Appearance Clear, Urine pH 6.5, Ur Specific [place] 1.010, Urine Protein Negative, Urine Glucose (UA) Negative, Urine Ketones Negative, Urine Blood Negative, Urine Nitrate Negative, Urine Bilirubin Negative, Urine Urobilinogen 0.2, Ur Leukocyte Esterase Negative 07/12/18 18:24: Free T4 1.11, TSH 3rd Generation 7.63 H, Alcohol, Quantitative < 10 07/12/18 18:24: Salicylates < 1 L, Acetaminophen < 10.0 L 07/12/18 18:24: Sodium 128 L, Potassium 4.3, Chloride 96 L, Carbon Dioxide 31, Anion Gap 7 L, BUN 12, Creatinine 0.7 L, Est GFR ( Amer) > 60, Est GFR (Non-Af Amer) > 60, Random Glucose 106, Calcium 9.0, Magnesium 1.7, Total Bilirubin 0.6, AST 27, ALT 12, Alkaline Phosphatase 71, Total Creatine Kinase 114, Total Protein 7.9, Albumin 4.3, Globulin 3.6, Albumin/Globulin Ratio 1.2 07/12/18 18:24: WBC 3.5 L, RBC 3.82, Hgb 12.4 L, Hct 36.7 L, MCV 96.1, MCH 32.5, MCHC 33.8, RDW 12.6, Plt Count 199, MPV 9.6, Neut % (Auto) 58.0, Lymph % (Auto) 34.2, [place] % (Auto) 6.6 H, Eos % (Auto) 0.9 L, Baso % (Auto) 0.3, Lymph # (Auto) 1.2, [place] # (Auto) 0.2, Eos # (Auto) 0.0, Baso # (Auto) 0.01, Absolute Neuts (auto) 2.02 07/12/18 16:55: POC Glucose (mg/dL) 113 H Vital Signs Temp Pulse Resp BP Pulse Ox 07/15/18 06:37 98.4 F 60 18 122/75 07/14/18 16:50 80 150/75 07/14/18 08:03 98.2 F 74 18 142/88 07/13/18 16:47 72 149/99 H 07/13/18 14:25 97.5 F L 79 20 143/86 99 07/13/18 13:29 77 18 136/78 100 07/13/18 11:17 72 18 133/92 H 100 07/13/18 08:43 79 18 117/72 100 07/13/18 07:43 74 18 117/67 100 07/13/18 03:00 72 18 124/62 100 07/12/18 23:53 98.0 F 69 18 118/73 98 07/12/18 20:00 70 18 127/85 100 07/12/18 17:00 97.9 F 78 18 167/92 H 100 Temp Pulse Resp BP Pulse Ox 97.3 F L 71 19 114/72 99 07/16/18 07:00 07/16/18 10:13 07/16/18 07:00 07/16/18 10:13 07/13/18 14:25 DSM 5 Symptoms Update: patient is 53yo Male with long h/o mental illness, 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 Please see admission note for more detailed information As per nursing report ,on the unit patient has been disorganized, but more pleasant, patient is compliant with her medications, seems to be more pleasant. Patient was seen today at the treatment team meeting, patient presented to be disorganized, word salad "they told me a pill, there's a small bit of illness in it. I'm almost a doctor. He got ran over 10 horses. Every single horse I had did the same things. The horse did not recognize everything." very hard to inter view, but overall pt is pleasant, socially appropriate. Patient has episodes of mumbling, garbled speech but overall presented better. As per staff patient does not exhibit any aggression/agitation but does required constant redirection, encouragement to take medications. SW contacted [facility]([phone]) as per Bree Biswas, pt was seen by staff member, presented not well, pt presented to be paranoid, agitated, [facility] feels that pt is not ready for discharge. Discharge was postponed to 07/25/18. Impression: Schizophrenia, treatment resistant Medication Change: No Medical Record Reviewed: Yes Mental Status Examination - Cognitive Function Orientation: Place, Situation (superficially) Memory: Impaired Attention: Poor (Somewhat better) Concentration: Poor (Some improvement) Association: Loose Fund of Knowledge: Poor - Mood Mood: Anxious (Improved) - Affect Affect: Broad - Formal Thought Process Formal Thought Process: Hallucinations (Denied today), Delusions (Chronic), Paranoia (Better), Loosening of associations (Prominent) - Suicidal Ideation Suicidal Ideation: No - Homicidal Ideation Homicidal Ideation: No Goal/Treatment Plan - Goal/Treatment Plan Need for Continued Stay: Remain at risks for inpatient hospitalization, Severe depression anxiety, Discharge may exacerbated symptoms, Severe functional impairment Progress Toward Problem(s) and Goals/Treatment Plan: group, milieu and supportive tx * Haldol 10mg po bid and hs, cogentin 1 mg po daily and 2 mg at the nighttime for EPS prophylaxis * Klonopin 1 mg po bid for mood control and anxiety control * Will restart Risperdal for disorganization if patient continues to be disorganized after Haldol has been optimized * Haldol/Ativan/Benadryl prns for agitation * Ambien 5 mg po HS prn: insomnia * medical consult Family involvement Follow up on labs Will monitor closely Pt was educated about risk/benefits and alternatives of medications, coping strategies (safety plan, suicide prevention), relapse prevention, importance of follow up with psychiatrist and therapist, stay away from drugs/alcohol/smoking Patient might benefit from ECT, pt has no POA, present moment patient lacks capacity to sign consent for ECT treatment Estimated Date of D/C: 07/26/18
--- NOTE | 2018-07-24 19:00 | PCM.BM ---
<Lindsey Schaffer - Last Filed: 07/24/18 18:57> Treatment Plan Problems - Problems identified on initial assessmt Aleterd thought process Date Initiated: 07/13/18 (07/24 remain with delusional thoughts ,refused thyroid pill states"it stops your heart") Time Initiated: 15:00 Assessment reference: NA Status: Active Priority: 1 Medication onadherenace Date Initiated: 07/13/18 (07/24 compliant with medication with encouragement) Time Initiated: 15:00 Assessment reference: NA Status: Active Priority: 2 Ineffective coping Date Initiated: 07/13/18 (07/24 remain with poor coping skills,needs more encouragement) Time Initiated: 15:00 Assessment reference: NA Status: Active Priority: 3 Treatment assets and liabiliti Patient Assests: ADL independent, negotiates basic needs Patient Liabilities: medical problems - Milieu Protocol Maintain good personal hygiene: every other day Encourage regular showers, every other day Remind patient to perform daily oral care, every other day Assist patient to perform ADL's Conduct patient checks and document Observation sheet: Q15 minutes Maintain personal safety: every shift Educate patient to report safety concerns to staff, every shift Monitor environment for contraband/sharps Medication safety: Monitor for expected outcome, potential side effects: every shift, Assess barriers to learning: every shift, Assess readiness for medication education: every shift Milieu Narrative: group, milieu and supportive tx * Haldol 10mg po bid and hs, cogentin 1 mg po daily and 2 mg at the nighttime for EPS prophylaxis * Klonopin 1 mg po bid for mood control and anxiety control * Will restart Risperdal for disorganization if patient continues to be disorganized after Haldol has been optimized * Haldol/Ativan/Benadryl prns for agitation * Ambien 5 mg po HS prn: insomnia * medical consult Family involvement Follow up on labs Will monitor closely Pt was educated about risk/benefits and alternatives of medications, coping strategies (safety plan, suicide prevention), relapse prevention, importance of follow up with psychiatrist and therapist, stay away from drugs/alcohol/smoking Patient might benefit from ECT, pt has no POA, present moment patient lacks capacity to sign consent for ECT treatment Family Contact Family involvement: Famliy/SO not involved - Outside Agency [facility] involvment: Following patient during stay Agency contact name: [facility] Agency contact number: [phone] Discharge/Continuing Care - Education Needs Education Needs: Patient Medication, Patient Diagnosis/Disease Process, Patient Coping Skills, Patient Placement options, Patient Community resources, Patient Activities of Daily Living, Patient Nutrition, Patient Health Practices/Safety, Patient Personal Hygiene/Grooming - Discharge Discharge Criteria: Tolerates medication w/o severe side effects, Free of paranoid thoughts, Normal sleep pattern, Ability to care for self, Reduction of target symptoms - Treatment Team Participation Patient/Family/SO Statement: group, milieu and supportive tx * Haldol 10mg po bid and hs, cogentin 1 mg po daily and 2 mg at the nighttime for EPS prophylaxis * Klonopin 1 mg po bid for mood control and anxiety control * Will restart Risperdal for disorganization if patient continues to be disorganized after Haldol has been optimized * Haldol/Ativan/Benadryl prns for agitation * Ambien 5 mg po HS prn: insomnia * medical consult Family involvement Follow up on labs Will monitor closely Pt was educated about risk/benefits and alternatives of medications, coping strategies (safety plan, suicide prevention), relapse prevention, importance of follow up with psychiatrist and therapist, stay away from drugs/alcohol/smoking Patient might benefit from ECT, pt has no POA, present moment patient lacks capacity to sign consent for ECT treatment Treatment Plan Review - Problem Aleterd thought process Time Initiated: 15:00 Medication onadherenace Time Initiated: 15:00 Ineffective coping Time Initiated: 15:00 <Christi Stone - Last Filed: 07/25/18 10:17> Family Contact Family involvement: George/SO not involved
[2018-07-25] MEDS: Levothyroxine 125 MCG TAB PO SCH (06:33)
--- NOTE | 2018-07-25 15:24 | PCM.PYCHPN ---
Psychiatric Progress Note - Psychiatric Progress Note Patient seen today, length of contact: 30min Patient Chief Complaint: "I am okay" Problems Identified/Issues Discussed: this travel writer attempted to discuss suicide/ homicide prevention, past psychiatric h/o, current psychiatric symptoms, medical problems, risk/benefits and alternatives of medications, medications compliance, coping strategies, substance abuse h/o, relapse prevention, importance of follow up with psychiat rist and therapist, discharge plan, but comprehension is very questionable. Medical Problems: Patient has multiple medical issues, patient was seen by Dr. Alvarado Diagnostic Results: 07/12/18 18:24 07/15/18 10:20 Lab Results 07/15/18 10:20: Sodium 136, Potassium 4.3, Chloride 98, Carbon Dioxide 31, Anion Gap 11, BUN 8, Creatinine 0.7 L, Est GFR ( Amer) > 60, Est GFR (Non-Af Amer) > 60, Random Glucose 116 H, Calcium 9.0 07/14/18 07:00: RPR Nonreactive 07/14/18 07:00: Free T4 1.22, TSH 3rd Generation 6.71 H 07/14/18 07:00: Fasting Glucose 81, Triglycerides 55, Cholesterol 161, LDL Cholesterol Direct 80, HDL Cholesterol 43 07/13/18 17:12: Valproic Acid < 10 L 07/12/18 22:25: Urine Opiates Screen Negative, Urine Methadone Screen Negative, Ur Barbiturates Screen Negative, Ur Phencyclidine Scrn Negative, Ur Amphetamines Screen Negative, U Benzodiazepines Scrn Negative, U Oth Cocaine Metabols Negative, U Cannabinoids Screen Negative 07/12/18 22:25: Urine Color Light yellow, Urine Appearance Clear, Urine pH 6.5, Ur Specific [place] 1.010, Urine Protein Negative, Urine Glucose (UA) Negative, Urine Ketones Negative, Urine Blood Negative, Urine Nitrate Negative, Urine Bilirubin Negative, Urine Urobilinogen 0.2, Ur Leukocyte Esterase Negative 07/12/18 18:24: Free T4 1.11, TSH 3rd Generation 7.63 H, Alcohol, Quantitative < 10 07/12/18 18:24: Salicylates < 1 L, Acetaminophen < 10.0 L 07/12/18 18:24: Sodium 128 L, Potassium 4.3, Chloride 96 L, Carbon Dioxide 31, Anion Gap 7 L, BUN 12, Creatinine 0.7 L, Est GFR ( Amer) > 60, Est GFR (Non-Af Amer) > 60, Random Glucose 106, Calcium 9.0, Magnesium 1.7, Total Bilirubin 0.6, AST 27, ALT 12, Alkaline Phosphatase 71, Total Creatine Kinase 114, Total Protein 7.9, Albumin 4.3, Globulin 3.6, Albumin/Globulin Ratio 1.2 07/12/18 18:24: WBC 3.5 L, RBC 3.82, Hgb 12.4 L, Hct 36.7 L, MCV 96.1, MCH 32.5, MCHC 33.8, RDW 12.6, Plt Count 199, MPV 9.6, Neut % (Auto) 58.0, Lymph % (Auto) 34.2, [place] % (Auto) 6.6 H, Eos % (Auto) 0.9 L, Baso % (Auto) 0.3, Lymph # (Auto) 1.2, [place] # (Auto) 0.2, Eos # (Auto) 0.0, Baso # (Auto) 0.01, Absolute Neuts (auto) 2.02 07/12/18 16:55: POC Glucose (mg/dL) 113 H Vital Signs Temp Pulse Resp BP Pulse Ox 07/15/18 06:37 98.4 F 60 18 122/75 07/14/18 16:50 80 150/75 07/14/18 08:03 98.2 F 74 18 142/88 07/13/18 16:47 72 149/99 H 07/13/18 14:25 97.5 F L 79 20 143/86 99 07/13/18 13:29 77 18 136/78 100 07/13/18 11:17 72 18 133/92 H 100 07/13/18 08:43 79 18 117/72 100 07/13/18 07:43 74 18 117/67 100 07/13/18 03:00 72 18 124/62 100 07/12/18 23:53 98.0 F 69 18 118/73 98 07/12/18 20:00 70 18 127/85 100 07/12/18 17:00 97.9 F 78 18 167/92 H 100 Temp Pulse Resp BP Pulse Ox 97.3 F L 71 19 114/72 99 07/16/18 07:00 07/16/18 10:13 07/16/18 07:00 07/16/18 10:13 07/13/18 14:25 DSM 5 Symptoms Update: patient is 53yo Male with long h/o mental illness, treatment resistant schizophrenia vs schizoaffective disorder, pt was on clozaril, multiple psych iatric admissions in the past, most recently hospitalized at [facility] [place] in [place], who was brought to the emergency room by EMS after patient was acting bizarre at the boarding home. Please see admission note for more detailed information As per nursing report ,on the unit patient has been disorganized, but more pleasant, patient is compliant with his medications, and unit rules and regulations, no agitation, no aggression, patient has chronic disorganized thoughts, today patient was able to make some jokes, overall improving. Patient was visited by Bree elliott from [facility]([phone]), as per Bree patient presented well, patient will be discharged back to the [facility] tomorrow. Patient has episodes of mumbling, garbled speech but overall presented better. As per staff patient does not exhibit any aggression/agitation but does required constant redirection, encouragement to take medications. Impression: Schizophrenia, treatment resistant Medication Change: No Medical Record Reviewed: Yes Mental Status Examination - Cognitive Function Orientation: Place, Situation (superficially) Memory: Impaired Attention: Poor (Somewhat better) Concentration: Poor (Some improvement) Association: Loose Fund of Knowledge: Poor - Mood Mood: Anxious (Improved) - Affect Affect: Broad - Formal Thought Process Formal Thought Process: Hallucinations (Denied today), Delusions (Chronic), Paranoia (Better), Loosening of associations (Prominent) - Suicidal Ideation Suicidal Ideation: No - Homicidal Ideation Homicidal Ideation: No Goal/Treatment Plan - Goal/Treatment Plan Need for Continued Stay: Remain at risks for inpatient hospitalization, Severe depression anxiety, Discharge may exacerbated symptoms, Severe functional impairment Progress Toward Problem(s) and Goals/Treatment Plan: group, milieu and supportive tx * Haldol 10mg po bid and hs, cogentin 1 mg po daily and 2 mg at the nighttime for EPS prophylaxis * Klonopin 1 mg po bid for mood control and anxiety control * Will restart Risperdal for disorganization if patient continues to be disorganized after Haldol has been optimized * Haldol/Ativan/Benadryl prns for agitation * Ambien 5 mg po HS prn: insomnia * medical consult Family involvement Follow up on labs Will monitor closely Pt was educated about risk/benefits and alternatives of medications, coping strategies (safety plan, suicide prevention), relapse prevention, importance of follow up with psychiatrist and therapist, stay away from drugs/alcohol/smoking Patient might benefit from ECT, pt has no POA, present moment patient lacks capacity to sign consent for ECT treatment Estimated Date of D/C: 07/26/18
[2018-07-25 16:52] VITALS: PULSE 71
[2018-07-26] MEDS: Levothyroxine 125 MCG TAB PO SCH (06:15)
[2018-07-26 07:32] VITALS: BP 119/80; RESP 20; TEMP 97.8
--- NOTE | 2018-07-26 15:33 | PCM.PYCHDC ---
Mental Status Examination - Mental Status Examination Orientation: Person, Place, Situation, Time Memory: Impaired (baseline) Mood: Neutral Affect: Constricted (but reactive) Speech: Appropriate (garbled, disorganized, baseline) Attention: Poor (but improved) Concentration: Poor (improved) Association: Loose (baseline) Fund of Knowledge: Poor (baseline) Formal Thought Process: Loosening of associations (baseline), Circumstantial (baseline), Other (disorganized thought process, baseline) Description of patient's judgement and insight: some improvement with insight and judgment, pt was compliant with meds, unit rules and regulations, no agitation, no aggression. Psychotic Thoughts and Behaviors: chronic psychosis Suicidal Ideation: No Current Homicidal Ideation?: No Plan: denied thoughts of harming self or others. Discharge Summary - Discharge Note Reason for Hospitalization: worsening of psychosis. Psychiatric History (includes Medical, Family, Personal Hx): long h/o schizophrenia Laboratory Data: 07/12/18 18:24 07/15/18 10:20 Lab Results 07/15/18 10:20: Sodium 136, Potassium 4.3, Chloride 98, Carbon Dioxide 31, Anion Gap 11, BUN 8, Creatinine 0.7 L, Est GFR ( Amer) > 60, Est GFR (Non-Af Amer) > 60, Random Glucose 116 H, Calcium 9.0 07/14/18 07:00: RPR Nonreactive 07/14/18 07:00: Free T4 1.22, TSH 3rd Generation 6.71 H 07/14/18 07:00: Fasting Glucose 81, Triglycerides 55, Cholesterol 161, LDL Cho lesterol Direct 80, HDL Cholesterol 43 07/13/18 17:12: Valproic Acid < 10 L 07/12/18 22:25: Urine Opiates Screen Negative, Urine Methadone Screen Negative, Ur Barbiturates Screen Negative, Ur Phencyclidine Scrn Negative, Ur Amphetamines Screen Negative, U Benzodiazepines Scrn Negative, U Oth Cocaine Metabols Negative, U Cannabinoids Screen Negative 07/12/18 22:25: Urine Color Light yellow, Urine Appearance Clear, Urine pH 6.5, Ur Specific [place] 1.010, Urine Protein Negative, Urine Glucose (UA) Negative, Urine Ketones Negative, Urine Blood Negative, Urine Nitrate Negative, Urine Bilirubin Negative, Urine Urobilinogen 0.2, Ur Leukocyte Esterase Negative 07/12/18 18:24: Free T4 1.11, TSH 3rd Generation 7.63 H, Alcohol, Quantitative < 10 07/12/18 18:24: Salicylates < 1 L, Acetaminophen < 10.0 L 07/12/18 18:24: Sodium 128 L, Potassium 4.3, Chloride 96 L, Carbon Dioxide 31, Anion Gap 7 L, BUN 12, Creatinine 0.7 L, Est GFR ( Amer) > 60, Est GFR (Non-Af Amer) > 60, Random Glucose 106, Calcium 9.0, Magnesium 1.7, Total Bilirubin 0.6, AST 27, ALT 12, Alkaline Phosphatase 71, Total Creatine Kinase 114, Total Protein 7.9, Albumin 4.3, Globulin 3.6, Albumin/Globulin Ratio 1.2 07/12/18 18:24: WBC 3.5 L, RBC 3.82, Hgb 12.4 L, Hct 36.7 L, MCV 96.1, MCH 32.5, MCHC 33.8, RDW 12.6, Plt Count 199, MPV 9.6, Neut % (Auto) 58.0, Lymph % (Auto) 34.2, [place] % (Auto) 6.6 H, Eos % (Auto) 0.9 L, Baso % (Auto) 0.3, Lymph # (Auto) 1.2, [place] # (Auto) 0.2, Eos # (Auto) 0.0, Baso # (Auto) 0.01, Absolute Neuts (auto) 2.02 07/12/18 16:55: POC Glucose (mg/dL) 113 H Vital Signs Temp Pulse Resp BP Pulse Ox 07/26/18 07:31 97.8 F 71 20 119/80 07/25/18 16:00 71 122/80 07/25/18 07:02 97.3 F L 58 L 18 95/67 L 07/25/18 07:00 97.3 F L 58 L 18 95/67 L 07/24/18 16:00 68 129/85 07/24/18 09:32 64 100/65 07/24/18 07:26 97.8 F 64 20 100/65 07/23/18 16:00 83 128/72 07/23/18 09:25 67 114/74 07/23/18 07:22 98.0 F 67 18 114/74 97 07/22/18 16:34 69 120/74 07/22/18 09:16 60 108/72 07/22/18 07:25 97.9 F 60 18 108/72 07/21/18 07:00 97.8 F 83 20 124/84 07/20/18 15:00 65 126/74 07/20/18 08:58 65 134/85 07/20/18 07:00 97.8 F 65 18 134/85 07/20/18 06:47 97.8 F 65 18 134/85 07/19/18 15:57 81 124/85 07/19/18 10:01 78 122/70 07/19/18 07:00 98 F 78 20 122/70 07/18/18 16:01 87 107/68 07/18/18 07:00 97.9 F 74 18 112/76 07/17/18 16:00 76 125/82 07/17/18 08:41 63 135/83 07/17/18 07:00 97.9 F 63 18 135/83 07/16/18 16:00 83 144/85 07/16/18 10:13 71 114/72 07/16/18 07:00 97.3 F L 71 19 114/72 07/15/18 16:00 77 131/74 07/15/18 06:37 98.4 F 60 18 122/75 07/14/18 16:50 80 150/75 07/14/18 08:03 98.2 F 74 18 142/88 07/13/18 16:47 72 149/99 H 07/13/18 14:25 97.5 F L 79 20 143/86 99 07/13/18 13:29 77 18 136/78 100 07/13/18 11:17 72 18 133/92 H 100 07/13/18 08:43 79 18 117/72 100 07/13/18 07:43 74 18 117/67 100 07/13/18 03:00 72 18 124/62 100 07/12/18 23:53 98.0 F 69 18 118/73 98 07/12/18 20:00 70 18 127/85 100 07/12/18 17:00 97.9 F 78 18 167/92 H 100 Consultations:: List each consultation separately and include: 1. Reason for request. 2. Findings. 3. Follow-up Consultations: Dr. Alvarado's consultation appreciated Summary of Hospital Course include:: 1. Description of specific treatment plan utilized for patients during their course of treatmen. 2. Summarize the time- course for resolution of acute symptoms and/or regressed behaviors. 3. Describe issues identified and worked on during hospitalization. 4. Describe medication utilized. 5. Describe medical problems identified and treated. 6. Reassessment of suicide risk Summary of Hospital Course: patient is 53yo Male with long h/o mental illness, treatment resistant schizophrenia vs schizoaffective disorder, pt was on clozaril, multiple psychiatric admissions in the past, most recently hospitalized at [facility] in 2016, who was brought to the emergency room by EMS after patient was acting bizarre at the boarding home. Per emergency room evaluation patient disorganized, flighty, bizarrely related and at times incoherent during interviews. PES clinician judged that patient did not have capacity to sign in so [facility] [place]. Screeners cleared patient overnight and this provider was so concerned about patient's psychiatric presentation, he was held until the morning to be interviewed by me in the ER. I found that his orientation and organization were improved since initial presentation such that he had capacity to sign in voluntarily and he was amenable to this recommendation. see initial assessment for more detailed information. Haloperidol was was increased to 30 mg daily for psychosis Cogentin was increased to 3 mg daily for possible EPS Klonopin 1 mg twice a day for anxiety Patient tolerated medications well, no side effects observed or reported, aims 0, no EPS. Patient was seen by medical team, consult appreciated, please see notes for more detailed information. Over the course of this hospitalization pt was attending groups, pt also had medication management, had therapeutic milieu. Overall pt improved, pt's affect became brighter, psychosis also improved, but patient still has prominent disorganized speech and thoughts, which seems to be baseline for this patient, patient was visited by his microgrinder operator from the [facility], patient was found to be at his baseline of functioning, patient deemed ready for discharge back home. At the time of the discharge patient pose no imminent danger to self or others, will be following up with his regular psychiatrist, information about follow up appointment, time and address provided to the pt, (see SW note for more detailed information). It is a patient/[facility] responsibility to make sure that patient will follow up with outpatient clinic, PMD as well as specialists In case patient will need to obtain results of studies pending at discharge, patient was provided with contact information of Psychiatric Inpatient unit [phone] as well as Medical Record Department [phone], as well as [facility] team [phone]. Patient is not using drugs, does not smoke, does not drink alcohol pt was provided with prescriptions (see medication reconciliation form) Pt was educated about safety plan in case of worsening of symptoms or in case of suicidal or homicidal ideation call 911 or go to the nearest ER, also was educated to take meds as prescribed and stay away from drugs, pt verbalized understanding. - Diagnosis (1) Schizophrenia Current Visit: Yes Status: Acute - Final Diagnosis (DSM 5) Condition upon Discharge: STABLE Disposition: HOME/ ROUTINE Follow-up Treatment Plan: At the time of the discharge patient pose no imminent danger to self or others, will be following up with his regular psychiatrist, information about follow up appointment, time and address provided to the pt, (see SW note for more detailed information). It is a patient/[facility] responsibility to make sure that patient will follow up with outpatient clinic, PMD as well as specialists In case patient will need to obtain results of studies pending at discharge, patient was provided with contact information of Psychiatric Inpatient unit [phone] as well as Medical Record Department [phone], as well as [facility] team [phone]. Patient is not using drugs, does not smoke, does not drink alcohol pt was provided with prescriptions (see medication reconciliation form) Pt was educated about safety plan in case of worsening of symptoms or in case of suicidal or homicidal ideation call 911 or go to the nearest ER, also was educated to take meds as prescribed and stay away from drugs, pt verbalized understanding. Prescriptions/Medication Reconciliation: Benztropine [Cogentin] 1 mg PO DAILY #14 tab Benztropine [Cogentin] 2 mg PO HS #14 tab clonazePAM [Klonopin] 1 mg PO BID #30 tab Haloperidol [Haldol] 10 mg PO AMHS #30 tab Haloperidol [Haldol] 10 mg PO BID #30 tab Haloperidol [Haldol] 10 mg PO HS #14 tab Haloperidol [Haldol] 5 mg PO HS #14 tab Levothyroxine [Synthroid] 125 mcg PO 0600 #14 tab Losartan [Cozaar] 25 mg PO DAILY #14 tab Pantoprazole Sodium [Protonix] 40 mg PO DAILY #14 tablet.dr - Smoking Cessation Smoking Cessation Medication prescribed: No Reason for not providing: Patient denied smoking - Antipsychotic Medications Pt discharged on 2 or more routine antipsychotic medications: No
== END 2018-07-26 18:05 | disposition home or self-care (01) | DRG 885 ==
LOC: ED 16:24 → ERH 07-13 11:24 → PSYC 07-13 13:49
PROVIDERS: ADMIT Psychiatry & Neurology Psychiatry; ATTEND Psychiatry & Neurology Psychiatry
DX: F25.9 Schizoaffective disorder, unspecified (principal); E87.1 Hypo-osmolality and hyponatremia; E03.9 Hypothyroidism, unspecified; I10 Essential (primary) hypertension; F41.9 Anxiety disorder, unspecified; Z91.14 Patient's other noncompliance with medication regimen

== ENCOUNTER 2018-09-04 17:28 | Emergency (ER) | payer MEDICARE ==
[2018-09-04 17:43] VITALS: BMI 26.6
--- NOTE | 2018-09-04 18:00 | ED PDOC ---
Arrival/HPI - General Chief Complaint: GI Problem Time Seen by Provider: 09/04/18 17:40 Historian: EMS EM Caveat: Psychotic - History of Present Illness Narrative History of Present Illness (Text): 09/04/18 17:55 Patient is a 53 year old male whose past medical history includes, schizo affective disorder, and bipolar disorder, who was brought in by EMS from a [facility] after being belligerent. Per EMS/[facility] patient stated having worms in his rectum. However, he currently has no complaints about rectal worms. Patient wouldn't answer questions. Limited HPI and ROS due to psychosis. Past Medical History - Provider Review Nursing Documentation Reviewed: Yes - Infectious Disease Hx of Infectious Diseases: None - Cardiac Hx Cardiac Disorders: Yes Hx Hypertension: Yes - Pulmonary Hx Respiratory Disorders: No Other/Comment: incoherant unable to answer info from past records - Neurological Hx Neurological Disorder: No Other/Comment: incoherant unable to answer info from past records - HEENT Hx HEENT Disorder: No Hx Cataracts: No Hx Deafness: No Hx Difficulty Chewing: No Hx Epistaxis: No Hx Glaucoma: No Hx Macular Degeneration: No Other/Comment: pt incoherant unable to answer info from past records - Renal Other/Comment: pt incoherant unable to answer info from past records - Endocrine/Metabolic Hx Endocrine Disorders: Yes Hx Hypothyroidism: Yes - Hematological/Oncological Hx Blood Disorders: Yes (vitamin d deficiency) Other/Comment: pt incoherant unable to answer info from past records - Integumentary Hx Dermatological Disorder: Yes Other/Comment: dark brown birthmark lle - Musculoskeletal/Rheumatological Hx Falls: Yes Other/Comment: pt incoherant unable to answer, info from past records - Gastrointestinal Hx Gastrointestinal Disorders: Yes (obese) Other/Comment: pt incoherant unable to answer info from past records - Genitourinary/Gynecological Hx Genitourinary Disorders: No Other/Comment: pt incoherant unable to answer info from past records - Psychiatric Hx Psychophysiologic Disorder: Yes (schizoaffective disorder) Hx Anxiety: No Hx Bipolar Disorder: Yes Hx Depression: Yes Hx Post Traumatic Stress Disorder: No Hx Schizophrenia: Yes Hx Substance Use: (unknown, answers incoherantly) Other/Comment: alcohol abuse, poor concentration, delusions, flight of ideas, poor hygeine, disorganized thought process, echolalia, 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, past job loss and financial problems, info from psych eval from 02/2016 - Past Surgical History Past Surgical History: No Previous - Surgical History Other/Comment: pt incoherant unable to answer info from past records - Anesthesia Hx Anesthesia: No Hx Anesthesia Reactions: No Hx Malignant Hyperthermia: No - Suicidal Assessment Feels Threatened In Home Enviroment: No Family/Social History - Physician Review Nursing Documentation Reviewed: Yes Family/Social History: Unknown Family HX Smoking Status: Unknown If Ever Smoked Hx Alcohol Use: Yes (unknown what and how much) Hx Substance Use: (unknown, answers incoherantly) Hx Substance Use Treatment: No Allergies/Home Meds Allergies/Adverse Reactions: Allergies No Known Allergies Allergy (Verified 07/13/18 14:19) Review of Systems - Review of Systems Systems not reviewed;Unavailable: Psychotic Physical Exam - Physical Exam Physical Exam Limitations: Psychotic Vital Signs Reviewed: Yes Vital Signs Temp Pulse Resp BP Pulse Ox 09/04/18 17:30 97.8 F 93 H 18 154/92 H 97 Temperature: Afebrile Blood Pressure: Hypertensive Pulse: Regular Respiratory Rate: Normal Mental Status: Positive for: other (bizzare affect) - Systems Exam Head: Present: Atraumatic, Normocephalic Pupils: Present: PERRL Extroacular Muscles: Present: EOMI Conjunctiva: Present: Normal Mouth: Present: Moist Mucous Membranes Neck: Present: Normal Range of Motion Respiratory/Chest: Present: Clear to Auscultation, Good Air Exchange. No: Respiratory Distress, Accessory Muscle Use Cardiovascular: Present: Regular Rate and Rhythm, Normal S1, S2. No: Murmurs Abdomen: No: Tenderness, Distention, Peritoneal Signs Rectal: Present: Normal Rectal Tone, Other (Normal external rectal exam). No: Rectal Tenderness Back: Present: Normal Inspection Upper Extremity: Present: Normal Inspection. No: Cyanosis, Edema Lower Extremity: Present: Normal Inspection. No: Edema Neurological: Present: GCS=15, CN II-XII Intact, Speech Normal Skin: Present: Warm, Dry, Normal Color. No: Rashes Psychiatric: Present: Alert, Delusional (delusion of grandeur), Other ( tangential speech, bizzare affect, speaking nonsense). No: Normal Concentration, Normal Affect Medical Decision Making ED Course and Treatment: 09/04/18 18:05 Impression: 53 year old male whose past medical history includes schizo affective disorder and bipolar disorder, who was brought by EMS from a [facility] after being belligerent and complaining of rectal worms. Plan: -- Psych evaluation -- Reassess and disposition Prior Visits: Notes and results from previous visits were reviewed. Progress Notes: Patient evaluated by crisis, does not want to sign in. Crisis to contact psychiatrist. Pending psych dispo. - Lab Interpretations I have reviewed the lab results: Yes - Transfer of Care Patient signed out to Dr:: Ricky - Scribe Statement The provider has reviewed the documentation as recorded by the Scribe Mikey Brock Provider Scribe Attestation: All medical record entries made by the Scribe were at my direction and personally dictated by me. I have reviewed the chart and agree that the record accurately reflects my personal performance of the history, physical exam, medical decision making, and the department course for this patient. I have also personally directed, reviewed, and agree with the discharge instructions and disposition. Disposition/Present on Arrival - Present on Arrival Any Indicators Present on Arrival: No History of DVT/PE: No History of Uncontrolled Diabetes: No Urinary Catheter: No History of Decub. Ulcer: No History Surgical Site Infection Following: None - Disposition Have Diagnosis and Disposition been Completed?: No Diagnosis: Schizophrenia Disposition Time: 20:00 (signed out at shift change) Patient Problems: Current Active Problems Problem Status Onset Schizophrenia Acute Condition: STABLE Referrals: PCP,NO [Primary Care Provider] - Follow up with primary Forms: [employer] (Uzbek)
[2018-09-04 18:32] LABS: EOS % 0.6 % (1.5-5.0); HEMOGLOBIN 13.1 g/dL (14.0-18.0); LYMPH # 0.8 (1.2-3.4); MEAN CELL VOLUME 88.9 fl (80.0-105.0); MEAN CORPUSCULAR HEMOGLOBIN 30.9 pg (25.0-35.0); MEAN CORPUSCULAR HGB CONC 34.7 g/dl (31.0-37.0); MEAN PLATELET VOLUME 9.6 fl (7.0-11.0); MONO # 0.5 (0.1-0.6); MONO % 12.9 % (1.0-6.0); RBC 4.24 10^6/uL (3.5-6.1); RED CELL DISTRIBUTION WIDTH 12.1 % (11.5-14.5); WHITE BLOOD COUNT 3.6 10^3/uL (4.5-11.0)
[2018-09-04 18:43] LABS: ALB/GLOB RATIO 1.2 (1.1-1.8); ALBUMIN 4.2 g/dL (3.0-4.8); ALT/SGPT 25 U/L (7-56); AST/SGOT 34 U/L (17-59); BLOOD UREA NITROGEN 10 mg/dL (7-21); GFR NON-AFRICAN AMERICAN > 60
[2018-09-04 18:45] LABS: ACETAMINOPHEN < 10.0 ug/ml (10.0-20.0); SALICYLATE < 1 mg/dL (2.0-20.0)
[2018-09-04 21:24] LABS: PH,URINE 6.5 (4.7-8.0); URINE BILIRUBIN NEGATIVE (NEGATIVE); URINE BLOOD NEGATIVE (NEGATIVE); URINE COLOR YELLOW (YELLOW); URINE GLUCOSE (UA) NEGATIVE (NEGATIVE); URINE LEUKOCYTE ESTERASE NEGATIVE Leu/uL (NEGATIVE); URINE PROTEIN NEGATIVE mg/dL (<30 mg/dL); URINE UROBILINOGEN 0.2 E.U./dL (<1 E.U./dL)
[2018-09-04 21:25] LABS: URINE APPEARANCE CLEAR (CLEAR)
[2018-09-04 21:36] LABS: BARBITURATES, UR NEGATIVE (NEGATIVE); BENZODIAZEPINES, UR NEGATIVE (NEGATIVE); OPIATES, UR NEGATIVE (NEGATIVE); PHENCYCLIDINE, UR NEGATIVE (NEGATIVE)
--- NOTE | 2018-09-04 22:47 | ED PDOC ---
Physical Exam Vital Signs Temp Pulse Resp BP Pulse Ox 09/04/18 17:30 97.8 F 93 H 18 154/92 H 97 Medical Decision Making ED Course and Treatment: 09/04/18 20:00 Case endorsed to me by Dr. Sun, pending [facility] PES screening and disposition. 09/04/18 23:20 Reviewed EKG, NSR at [address]-segment elevations or depressions, no T-wave inversions, normal intervals. Pt medically cleared for psychiatric evaluation. 09/05/18 07:00 Case endorsed to /patient accepted to [facility] awaiting bed availability - Lab Interpretations Lab Results: Total Bilirubin 0.8 mg/dL (0.2-1.3) 09/04/18 18:20 AST 34 U/L (17-59) 09/04/18 18:20 ALT 25 U/L (7-56) 09/04/18 18:20 Alkaline Phosphatase 82 U/L (38-126) 09/04/18 18:20 Total Protein 7.5 g/dL (5.8-8.3) 09/04/18 18:20 Albumin 4.2 g/dL (3.0-4.8) 09/04/18 18:20 Globulin 3.3 gm/dL 09/04/18 18:20 Albumin/Globulin Ratio 1.2 (1.1-1.8) 09/04/18 18:20 Urine Color Yellow (YELLOW) 09/04/18 21:06 Urine Appearance Clear (CLEAR) 09/04/18 21:06 Urine pH 6.5 (4.7-8.0) 09/04/18 21:06 Ur Specific [place] 1.010 (1.005-1.035) 09/04/18 21:06 Urine Protein Negative mg/dL (<30 mg/dL) 09/04/18 21:06 Urine Glucose (UA) Negative mg/dL (NEGATIVE) 09/04/18 21:06 Urine Ketones Negative mg/dL (NEGATIVE) 09/04/18 21:06 Urine Blood Negative (NEGATIVE) 09/04/18 21:06 Urine Nitrate Negative (NEGATIVE) 09/04/18 21:06 Urine Bilirubin Negative (NEGATIVE) 09/04/18 21:06 Urine Urobilinogen 0.2 E.U./dL (<1 E.U./dL) 09/04/18 21:06 Ur Leukocyte Esterase Negative [place]/uL (NEGATIVE) 09/04/18 21:06 - RAD Interpretation Narrative RAD Interpretations (Text): 09/04/18 22:48 CXR-No acute process Radiology Orders: 09/04/18 20:32 CHEST PORTABLE [RAD] Stat Performance Engineer: ED Physician Disposition/Present on Arrival - Present on Arrival Any Indicators Present on Arrival: No History of DVT/PE: No History of Uncontrolled Diabetes: No Urinary Catheter: No History of Decub. Ulcer: No History Surgical Site Infection Following: None - Disposition Have Diagnosis and Disposition been Completed?: No Diagnosis: Schizophrenia Disposition Time: 07:00 Patient Problems: Current Active Problems Problem Status Onset Schizophrenia Acute Condition: STABLE Referrals: PCP,NO [Primary Care Provider] - Follow up with primary Forms: [employer] (M[place]ese)
[2018-09-05] MEDS ORDERED: DiphenhydrAMINE 50 mg/ml Inj ONE ×2 (05:45→20:54)
[2018-09-05] MEDS ORDERED: DiphenhydrAMINE 50 mg/ml Inj IVP STA (05:45)
--- NOTE | 2018-09-05 08:09 | ED PDOC ---
Physical Exam Vital Signs Reviewed: Yes Vital Signs Temp Pulse Resp BP Pulse Ox 09/05/18 05:30 74 16 132/71 97 09/05/18 01:30 82 17 135/72 98 09/04/18 21:30 88 16 142/78 97 09/04/18 17:30 97.8 F 93 H 18 154/92 H 97 Temperature: Afebrile Blood Pressure: Normal Pulse: Regular Respiratory Rate: Normal Appearance: Positive for: Well-Appearing, Non-Toxic, Comfortable Pain Distress: None Mental Status: Positive for: Alert and Oriented X 3 Medical Decision Making ED Course and Treatment: 09/05/18 07:00 Case endorsed to me by Dr. García. Patient accepted to [facility], awaiting bed availability 09/05/18 14:25 Crisis re-evaluated patient, he still does not want to sign in voluntarily. Still pending bed at [facility]. 09/05/18 18:46 Patient still awaiting bed at [facility]. - Lab Interpretations Lab Results: Total Bilirubin 0.8 mg/dL (0.2-1.3) 09/04/18 18:20 AST 34 U/L (17-59) 09/04/18 18:20 ALT 25 U/L (7-56) 09/04/18 18:20 Alkaline Phosphatase 82 U/L (38-126) 09/04/18 18:20 Total Protein 7.5 g/dL (5.8-8.3) 09/04/18 18:20 Albumin 4.2 g/dL (3.0-4.8) 09/04/18 18:20 Globulin 3.3 gm/dL 09/04/18 18:20 Albumin/Globulin Ratio 1.2 (1.1-1.8) 09/04/18 18:20 Urine Color Yellow (YELLOW) 09/04/18 21:06 Urine Appearance Clear (CLEAR) 09/04/18 21:06 Urine pH 6.5 (4.7-8.0) 09/04/18 21:06 Ur Specific [place] 1.010 (1.005-1.035) 09/04/18 21:06 Urine Protein Negative mg/dL (<30 mg/dL) 09/04/18 21:06 Urine Glucose (UA) Negative mg/dL (NEGATIVE) 09/04/18 21:06 Urine Ketones Negative mg/dL (NEGATIVE) 09/04/18 21:06 Urine Blood Negative (NEGATIVE) 09/04/18 21:06 Urine Nitrate Negative (NEGATIVE) 09/04/18 21:06 Urine Bilirubin Negative (NEGATIVE) 09/04/18 21:06 Urine Urobilinogen 0.2 E.U./dL (<1 E.U./dL) 09/04/18 21:06 Ur Leukocyte Esterase Negative Sachin/uL (NEGATIVE) 09/04/18 21:06 - RAD Interpretation Radiology Orders: 09/04/18 20:32 CHEST PORTABLE [RAD] Stat - Medication Orders Current Medication Orders: Discontinued Medications Diphenhydramine HCl (Benadryl) 50 mg IVP STAT STA Stop: 09/05/18 05:46 Last Admin: 09/05/18 05:50 Dose: 50 mg IVP Administration Document 09/05/18 05:50 JOL (Rec: 09/05/18 06:04 JOL [id number]) Charges for Administration # of IVP Administrations 1 Haloperidol Lactate (Haldol) 5 mg IM STAT STA; Protocol Stop: 09/05/18 05:01 Last Admin: 09/05/18 05:22 Dose: 5 mg IM Administration Charges Document 09/05/18 05:22 JOL (Rec: 09/05/18 05:22 JOL [id number]) Injection Site MAR Injection Site Left Deltoid Charges for Administration # of IM Administrations 1 Lorazepam (Ativan) 2 mg IM ONCE ONE Stop: 09/05/18 05:00 Last Admin: 09/05/18 05:22 Dose: 2 mg IM Administration Charges Document 09/05/18 05:22 JOL (Rec: 09/05/18 05:23 JOL [id number]) Injection Site MAR Injection Site Left Deltoid Charges for Administration # of IM Administrations 1 - Transfer of Care Patient signed out to Dr:: Mireille - Scribe Statement The provider has reviewed the documentation as recorded by the Scribe Rigoberto Anthony All medical record entries made by the Scribe were at my direction and personally dictated by me. I have reviewed the chart and agree that the record accurately reflects my personal performance of the history, physical exam, medical decision making, and the department course for this patient. I have also personally directed, reviewed, and agree with the discharge instructions and disposition. Disposition/Present on Arrival - Present on Arrival Any Indicators Present on Arrival: No History of DVT/PE: No History of Uncontrolled Diabetes: No Urinary Catheter: No History of Decub. Ulcer: No History Surgical Site Infection Following: None - Disposition Have Diagnosis and Disposition been Completed?: No Diagnosis: Schizophrenia Disposition Time: 19:00 (shift change) Patient Problems: Current Active Problems Problem Status Onset Schizophrenia Acute Condition: STABLE Referrals: PCP,NO [Primary Care Provider] - Follow up with primary Forms: [employer] (Thai)
--- NOTE | 2018-09-05 08:57 | RAD ---
Date of service: 09/04/2018 HISTORY: psych clearance COMPARISON: 07/12/2018 TECHNIQUE: 1 view obtained. FINDINGS: LUNGS: No active pulmonary disease. PLEURA: No significant pleural effusion identified, no pneumothorax apparent. CARDIOVASCULAR: No aortic atherosclerotic calcification present. Normal cardiac size. No pulmonary vascular congestion. OSSEOUS STRUCTURES: No significant abnormalities. VISUALIZED UPPER ABDOMEN: Normal. OTHER FINDINGS: None. IMPRESSION: No active disease.
--- NOTE | 2018-09-05 09:07 | CARD ---
APPROVED REPORT Date of service: 09/04/2018 EKG Measurement Heart [id number] <Conclusion> Normal sinus rhythm Normal ECG
[2018-09-05] MEDS: Pantoprazole 40 mg EC Tab PO SCH (14:00)
[2018-09-05] MEDS ORDERED: DiphenhydrAMINE 50 mg/ml Inj IM STA (20:56)
--- NOTE | 2018-09-05 23:26 | CON ---
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 The patient was brought in because the patient presented to be delusional, disorganized and belligerent in the shelter where he lives. The patient presented to be delusional, had no capacity to sign consent for treatment. [facility] screening process was initiated because the patient was disorganized, agitated and aggressive. Moreover, the patient was feeling worms in his rectum and also worms in his blood. The patient was seen and examined today at the morning time. The patient presented to be sleepy, status post IM with Haldol, Benadryl and Ativan. No meaningful conversation possible. The patient lives in a shelter. This content writer contacted [facility] and medication list was obtained. MEDICATION TREATMENT: The patient was on Cogentin 2 mg at the bedtime and 1 mg at the morning time. The patient was on Klonopin 1 mg twice a day, haloperidol 10 mg twice a day and at bedtime. The patient was on Synthroid 125 mcg. The patient was on pantoprazole 40 mg. The patient also is on losartan 25 mg once a day. We will resume all of the medications. LABS: Reviewed. No signs of granulocytosis. Chemistry reviewed. Urinalysis reviewed. Toxicology is reviewed. MENTAL STATUS EXAM: As this content writer described above. The patient was status post IM, but the patient presented to be agitated and psychotic and required to be screened by [facility]. The patient was accepted and at present moment the patient is waiting for bed to be available. IMPRESSION: As per history, schizophrenia versus schizoaffective disorder. PLAN: Medications confirmed, resumed. The patient is waiting for bed to be available at [facility]. We will follow up on the patient while he will be in the emergency room and advise accordingly. Thank you very much for letting me participate in care of the patient. Sofia Sen MD [facility] # [id number]
[2018-09-06] MEDS ORDERED: Levothyroxine 112 MCG TAB PO SCH (06:00)
--- NOTE | 2018-09-06 07:19 | ED PDOC ---
Physical Exam Vital Signs Temp Pulse Resp BP Pulse Ox 09/06/18 05:55 88 17 147/89 100 09/06/18 02:04 79 15 137/89 99 09/06/18 00:39 82 16 116/62 97 09/05/18 22:36 65 17 121/65 97 09/05/18 19:30 98.2 F 86 18 132/74 100 09/05/18 17:23 72 18 129/87 98 09/05/18 14:00 74 157/89 H 09/05/18 13:00 72 18 139/84 98 09/05/18 09:00 79 18 132/79 100 09/05/18 05:30 74 16 132/71 97 09/05/18 01:30 82 17 135/72 98 09/04/18 21:30 88 16 142/78 97 09/04/18 17:30 97.8 F 93 H 18 154/92 H 97 Medical Decision Making ED Course and Treatment: 09/06/18 07:17 Patient signed out to me by Dr. Kendrick, [place] [facility] [place] - Lab Interpretations Lab Results: Total Bilirubin 0.8 mg/dL (0.2-1.3) 09/04/18 18:20 AST 34 U/L (17-59) 09/04/18 18:20 ALT 25 U/L (7-56) 09/04/18 18:20 Alkaline Phosphatase 82 U/L (38-126) 09/04/18 18:20 Total Protein 7.5 g/dL (5.8-8.3) 09/04/18 18:20 Albumin 4.2 g/dL (3.0-4.8) 09/04/18 18:20 Globulin 3.3 gm/dL 09/04/18 18:20 Albumin/Globulin Ratio 1.2 (1.1-1.8) 09/04/18 18:20 Urine Color Yellow (YELLOW) 09/04/18 21:06 Urine Appearance Clear (CLEAR) 09/04/18 21:06 Urine pH 6.5 (4.7-8.0) 09/04/18 21:06 Ur Specific [place] 1.010 (1.005-1.035) 09/04/18 21:06 Urine Protein Negative mg/dL (<30 mg/dL) 09/04/18 21:06 Urine Glucose (UA) Negative mg/dL (NEGATIVE) 09/04/18 21:06 Urine Ketones Negative mg/dL (NEGATIVE) 09/04/18 21:06 Urine Blood Negative (NEGATIVE) 09/04/18 21:06 Urine Nitrate Negative (NEGATIVE) 09/04/18 21:06 Urine Bilirubin Negative (NEGATIVE) 09/04/18 21:06 Urine Urobilinogen 0.2 E.U./dL (<1 E.U./dL) 09/04/18 21:06 Ur Leukocyte Esterase Negative Sachin/uL (NEGATIVE) 09/04/18 21:06 - RAD Interpretation Radiology Orders: 09/04/18 20:32 CHEST PORTABLE [RAD] Stat - Medication Orders Current Medication Orders: Benztropine Mesylate (Cogentin) 2 mg PO AMHS [facility] Last Admin: 09/05/18 22:00 Dose: Not Given Non-Admin Reason: Patient Asleep Clonazepam (Klonopin) 1 mg PO BID [facility]; Protocol Last Admin: 09/05/18 19:09 Dose: 1 mg Haloperidol (Haldol) 10 mg PO BID [facility]; Protocol Last Admin: 09/05/18 19:46 Dose: 10 mg Haloperidol (Haldol) 10 mg PO HS [facility]; Protocol Last Admin: 09/05/18 22:00 Dose: Not Given Non-Admin Reason: given IM Levothyroxine Sodium (Synthroid) 112 mcg PO 0600 [facility] Losartan Potassium (Cozaar) 25 mg PO DAILY [facility] Last Admin: 09/05/18 14:00 Dose: 25 mg MAR Pulse and Blood Pressure Document 09/05/18 14:00 BB (Rec: 09/05/18 16:21 BB [id number]) Pulse Pulse Rate (60-90) 74 Blood Pressure Blood Pressure (100/60-150/90) 157/89 Pantoprazole Sodium (Protonix Ec Tab) 40 mg PO DAILY [facility] Last Admin: 09/05/18 14:00 Dose: 40 mg Thiamine HCl (Vitamin B1 Tab) 100 mg PO DAILY [facility] Last Admin: 09/05/18 14:00 Dose: 100 mg Discontinued Medications Diphenhydramine HCl (Benadryl) 50 mg IVP STAT STA Stop: 09/05/18 05:46 Last Admin: 09/05/18 05:50 Dose: 50 mg IVP Administration Document 09/05/18 05:50 JOL (Rec: 09/05/18 06:04 JOL [id number]) Charges for Administration # of IVP Administrations 1 Diphenhydramine HCl (Benadryl) 50 mg IM STAT STA Stop: 09/05/18 20:57 Last Admin: 09/05/18 20:59 Dose: 50 mg IM Administration Charges Document 09/05/18 20:59 CNR (Rec: 09/05/18 20:59 CNR [id number]) Injection Site MAR Injection Site Left Deltoid Charges for Administration # of IM Administrations 1 Haloperidol (Haldol) 10 mg PO AMHS [facility]; Protocol Haloperidol Lactate (Haldol) 5 mg IM STAT STA; Protocol Stop: 09/05/18 05:01 Last Admin: 09/05/18 05:22 Dose: 5 mg IM Administration Charges Document 09/05/18 05:22 JOL (Rec: 09/05/18 05:22 JOL [id number]) Injection Site MAR Injection Site Left Deltoid Charges for Administration # of IM Administrations 1 Haloperidol Lactate (Haldol) 5 mg IM STAT STA; Protocol Stop: 09/05/18 20:51 Last Admin: 09/05/18 20:58 Dose: 5 mg IM Administration Charges Document 09/05/18 20:58 CNR (Rec: 09/05/18 20:58 CNR [id number]) Injection Site MAR Injection Site Right Deltoid Charges for Administration # of IM Administrations 1 Lorazepam (Ativan) 2 mg IM ONCE ONE Stop: 09/05/18 05:00 Last Admin: 09/05/18 05:22 Dose: 2 mg IM Administration Charges Document 09/05/18 05:22 JOL (Rec: 09/05/18 05:23 JOL [id number]) Injection Site MAR Injection Site Left Deltoid Charges for Administration # of IM Administrations 1 Lorazepam (Ativan) 2 mg IM ONCE ONE; Protocol Stop: 09/05/18 20:51 Last Admin: 09/05/18 20:58 Dose: 2 mg IM Administration Charges Document 09/05/18 20:58 CNR (Rec: 09/05/18 20:59 CNR [id number]) Injection Site MAR Injection Site Right Deltoid Charges for Administration # of IM Administrations 1 - Scribe Statement The provider has reviewed the documentation as recorded by the Preeti Feliciano All medical record entries made by the Preeti were at my direction and personally dictated by me. I have reviewed the chart and agree that the record accurately reflects my personal performance of the history, physical exam, medical decision making, and the department course for this patient. I have also personally directed, reviewed, and agree with the discharge instructions and disposition. Disposition/Present on Arrival - Present on Arrival Any Indicators Present on Arrival: No History of DVT/PE: No History of Uncontrolled Diabetes: No Urinary Catheter: No History of Decub. Ulcer: No History Surgical Site Infection Following: None - Disposition Have Diagnosis and Disposition been Completed?: Yes Diagnosis: Schizophrenia Disposition: HOSPITALIZED Disposition Time: 18:08 (not actual time) Condition: STABLE Referrals: PCP,NO [Primary Care Provider] - Follow up with primary Forms: [employer] ([place])
[2018-09-06 10:28] VITALS: RESP 18
[2018-09-06] MEDS: Pantoprazole 40 mg EC Tab PO SCH (12:48)
--- NOTE | 2018-09-06 18:38 | PN ---
DATE: 09/06/2018 SUBJECTIVE: The patient is a 53-year-old male with reported history of schizophrenia. The patient was brought in from half-way for agitated and aggressive behavior. The patient was screened by [facility] and at present moment the patient is waiting for bed to be available. This ghost writer is very familiar with the patient from multiple admission to the psychiatric inpatient unit and consultation services. The patient was seen at the morning time during this ghost writer morning round in the emergency room. The patient presented to be sleepy, but easily arousable. No meaningful conversation possible. The patient is very disorganized and mumbling something to himself based on report from the emergency room staff. The patient needed to be medicated with Haldol IM yesterday overnight. This ghost writer confirmed medication from the patient half-way. Please see yesterday's note for more detailed information. OBJECTIVE: VITAL SIGNS: Reviewed. Most recent blood pressure 197/110. Respirations 18, oxygen saturation is 100. MEDICATIONS Reviewed. The patient is on Cogentin 2 mg at bedtime, Klonopin 1 mg twice a day, Haldol 10 mg twice a day and at bedtime, Synthroid, Cozaar, Protonix, and vitamin B1. LABORATORY DATA: Reviewed. Chemistry reviewed. Urinalysis reviewed. Toxicology reviewed. MENTAL STATUS EXAMINATION: This ghost writer described above. The patient presented to be disorganized, psychotic. No meaningful conversation possible. IMPRESSION: Schizophrenia as per history. PLAN: All medications were confirmed by the patient jail yesterday. Please see notes for more detailed information. The patient is waiting for bed to be available. The patient lacks capacity to sign consent for treatment for voluntary admission. Should you have any questions give me a call back. I hope that the patient will be transferred to [facility] as fast as possible. Sofia Sen MD
[2018-09-06 19:28] VITALS: BP 145/79; PULSE 89; TEMP 97.6; O2SAT 99
== END 2018-09-06 20:25 | disposition short-term general hospital (02) ==
LOC: ED 17:28
DX: F20.9 Schizophrenia, unspecified (principal); F31.9 Bipolar disorder, unspecified; I10 Essential (primary) hypertension
CPT/HCPCS: 71045; 80053; 81003; 83735; 85025; 90791; 93005; 96372; 96374; 99285; G0480; J1200; J1630; J2060